=== PATIENT | female | born 1940 | race Caucasian/White ===

== ENCOUNTER → 2019-01-19 15:03 | Outpatient (CLI) | payer MEDICARE, OTHER, SELFPAY ==
--- NOTE | 2019-01-19 | DI.US.S_ITS ---
PROCEDURE: US CAROTID DOPPLER BI INDICATIONS: DIZZINESS AND GIDDINESS TECHNIQUE: Color and pulse Doppler interrogation was performed of both carotid systems, with image documentation and velocity measurements. COMPARISON: None. FINDINGS: Stenosis calculations are based on SRU (Society of Radiologists in Ultrasound) criteria. Right side: Brachial blood pressure: 106/68 mm Hg. Common carotid artery peak systolic velocity: 77 cm/sec. Internal carotid artery peak systolic velocity: 67 cm/sec. Internal carotid artery end diastolic velocity: 17 cm/sec. External carotid artery peak systolic velocity: 71 cm/sec. ICA/CCA peak systolic ratio: 0.9. [place]renas scale imaging description: Calcified plaque scattered at the bifurcation Percent internal carotid artery stenosis: Less than 50%. Vertebral artery: Flow direction is antegrade, however not well-visualized Left side: Brachial blood pressure: 101/62 mm Hg. Common carotid artery peak systolic velocity: 78 cm/sec. Internal carotid artery peak systolic velocity: 88 cm/sec. Internal carotid artery end diastolic velocity: 34 cm/sec. External carotid artery peak systolic velocity: 60 cm/sec. ICA/CCA peak systolic ratio: 1.14. [place]renas scale imaging description: Calcified plaque at the bifurcation Percent internal carotid artery stenosis: Less than 50%. Vertebral artery: Flow direction is antegrade. IMPRESSION: Bilateral less than 50% ICA stenoses. Dictated by: Huang Hurst M.D. on 01/19/2019 at 17:02 Approved by: Huang Hurst M.D. on 01/19/2019 at 17:04
--- NOTE | 2019-01-19 | DI.RAD.S_ITS ---
PROCEDURE: XR CERVICAL SPINE 2V OR 3V INDICATIONS: dizzy TECHNIQUE: 3 view(s) of the cervical spine were acquired. COMPARISON: None. FINDINGS: Bones: No fractures or dislocations to the C7 level. The lateral masses of C1 appear intact on the odontoid view. No suspicious bony lesions. Straightening of the normal lordotic curvature. Multilevel degenerative endplate sclerosis and spurring. Diffuse facet arthropathy. Grade 1 retrolisthesis of C5 on C6 severe narrowing of the C5-C6 disc space, and at C6-C7. Moderate narrowing of the C4-C5 disc space. Soft tissues: No prevertebral soft tissue swelling. IMPRESSION: Multilevel cervical spondylosis most pronounced at C5-C6 and C6-C7. Dictated by: Huang Hurst M.D. on 01/19/2019 at 16:20 Approved by: Huang Hurst M.D. on 01/19/2019 at 16:21
== END ==
PROVIDERS: PCP Family Medicine; Visit Provider Family Medicine
DX: R42 Dizziness and giddiness (principal); I65.23 Occlusion and stenosis of bilateral carotid arteries; M47.812 Spondylosis without myelopathy or radiculopathy, cervical region
CPT/HCPCS: 72040; 93880

== ENCOUNTER → 2019-02-13 15:06 | Outpatient (CLI) | payer MEDICARE, OTHER, SELFPAY ==
--- NOTE | 2019-02-13 | DI.CT.S_ITS ---
PROCEDURE: CT HEAD/BRAIN WO CON INDICATIONS: headache, dizziness and giddiness TECHNIQUE: Noncontrast 4.5 mm thick angled axial sections acquired from the foramen magnum to the vertex, with coronal and sagittal reformats. For radiation dose reduction, the following was used: automated exposure control, adjustment of mA and/or kV according to patient size. COMPARISON: None. FINDINGS: Image quality: Diagnostic. CSF spaces: Basal cisterns are patent. No extra-axial fluid collections. Ventricles are mildly prominent. Brain: No midline shift. No intracranial masses or hemorrhage. [place]-white matter interface is normal. Scattered areas of low-attenuation within the periventricular white matter of the supratentorial brain are more prominent within the right parietal region. Skull and face: Calvarium and visualized facial bones are intact, without suspicious lesions. Sinuses: Mucosal thickening is identified involving the right inferior maxillary sinus. Otherwise, the imaged paranasal sinuses and mastoid air cells are clear. IMPRESSION: 1. No acute intracranial hemorrhage. 2. Chronic small vessel ischemic changes and parenchymal volume loss. Dictated by: Musa Mir M.D. on 02/13/2019 at 14:56 Approved by: Musa Mir M.D. on 02/13/2019 at 14:57
--- NOTE | 2019-02-13 | DI.CT.S_ITS ---
PROCEDURE: CT SINUS SCREEN WO CON INDICATIONS: headache, dizziness, and giddiness TECHNIQUE: Noncontrast 3.0 mm axial images acquired from the frontal sinuses to the mid-sella, with coronal and sagittal reformats. For radiation dose reduction, the following was used: automated exposure control, adjustment of mA and/or kV according to patient size. COMPARISON: None. FINDINGS: Image quality: Diagnostic. Maxillary Sinuses: Mild mucosal thickening is present involving the bilateral inferior maxillary sinuses. No air-fluid levels are identified. No bony remodeling is appreciated. Ethmoid Air Cells: No bony remodeling or destruction. Sinuses are clear. Sphenoid Sinuses: No bony remodeling or destruction. There is no mucosal thickening involving the sphenoid air cells. Frontal Sinuses: No bony remodeling or destruction. Sinuses are clear. Ostiomeatal Complexes: Ostiomeatal complexes are at least partially opacified related to maxillary sinus the coastal thickening. No Lashawn cells. Miscellaneous: Visualized intra-orbital contents are normal. No molly bullosa or paradoxical turbinate curvature. No nasal septal deviation. IMPRESSION: Maxillary and sphenoid sinus disease. Dictated by: Musa Mir M.D. on 02/13/2019 at 14:57 Approved by: Musa Mir M.D. on 02/13/2019 at 15:01
== END ==
PROVIDERS: PCP Family Medicine; Visit Provider Family Medicine
DX: R51 Headache (principal); R42 Dizziness and giddiness; J32.8 Other chronic sinusitis
CPT/HCPCS: 70450; 70486

== ENCOUNTER 2019-08-02 18:23 | Emergency (ER) | payer MEDICARE, OTHER, SELFPAY ==
[2019-08-02 18:25] VITALS: BP 147/68; PULSE 113; RESP 19; TEMP 36.6; O2SAT 94
--- NOTE | 2019-08-02 18:31 | ED_ITS ---
HPI - General Adult General Chief complaint: Neuro Symptoms/Deficit Stated complaint: confusion, asthma issues Time Seen by Provider: 08/02/19 18:31 History of Present Illness HPI narrative: 78-year-old woman brought in by her daughter with complaints of increasing memory and cognitive deficits over the last 6 weeks as well as concerns over anemia and wheezing. No concerns for fever, she has had an increasing cough and wheeze 1st thing in the morning there is slightly more production to it. She does not describe chest pain and notes that the dyspnea is only with the severe coughing. No vomiting, diarrhea, abdominal pain, change to bowel or bladder habits. She does note she has been having increasing headaches over the last number of weeks. Daughter has not previously been going to her mother's medical appointments with her but does have an appointment scheduled with her primary care physician on Tuesday. There are multiple medications with varying doses pill bottles left around house so that she remembers to take them and varying doses of Ativan up to mg 3 times a day. Daughter is concerned regarding the headaches, the medication confusion and the progressive cognitive deficits. Related Data Previous Rx's Medication Instructions Recorded prednisone 10 mg PO DAILY #5 tab 08/02/19 Allergies Allergy/AdvReac Type Severity Reaction Status Date / Time adhesive tape Allergy Severe skin welt, Verified 08/02/19 18:58 bruising, and tears codeine [CODEINE] Allergy Severe Nausea Unverified 08/02/19 18:52 Sulfa (Sulfonamide Allergy Severe Nausea Unverified 08/02/19 18:52 Antibiotics) [SULFA (SULFONAMIDE ANTIBIOTICS)] amoxicillin [AMOXICILLIN] Allergy Intermediate GI UPSET Unverified 07/27/17 12:06 Review of Systems Review of Systems Narrative: All systems reviewed and are unremarkable except as noted in HPI and below Patient History Medical History Anemia (Inactive) Asthma (Acute) Headache (Acute) Hypertension (Acute) Hypothyroidism (acquired) (Acute) Memory dysfunction (Acute) Social History Smoking Status: Unknown if ever smoked Exam Narrative Exam Narrative: General: Healthy appearing, in no acute distress. Able to speak in full sentences. HEENT: Moist mucous membranes, normal sclera with reactive pupils, Neck: No JVD, supple Respiratory: Lungs moderate diffuse wheeze in all lung house no rales no rhonchi. Full and symmetrical air movement Cardiac: Tachycardic but regular with no murmurs no bruits Abdomen: Soft nontender good bowel tones, no flank pain Skin: Warm and dry, no rashes Neurologic: Grossly neurologically intact with no obvious asymmetries or abno rmalities Extremities: No trauma, well perfused Psych: Cooperative, wondering and tangential thought process no hallucinations Initial Vital Signs Initial Vital Signs: Vital Signs Temperature 97.9 F 08/02/19 18:25 Pulse Rate 113 H 08/02/19 18:25 Respiratory Rate 19 08/02/19 18:25 Blood Pressure 147/68 H 08/02/19 18:25 Pulse Oximetry 94 08/02/19 18:25 Course Orders Ordered: ED Orders 08/02/19 18:54 CT head/brain wo con Stat 08/02/19 19:15 Complete Blood Count AUTO DIFF Stat Comprehensive Metabolic Panel Stat Thyroid Stimulating Hormone Stat 08/02/19 20:15 Urinalysis and Microscopic Stat 08/02/19 20:20 XR chest 1V Stat Discontinued Medications Sodium Chloride (Normal Saline 0.9%) 1,000 mls @ 1,000 mls/hr IV BOLUS ONE Stop: 08/02/19 19:53 Last Admin: 08/02/19 20:00 Dose: 1,000 mls/hr Documented by: BASSAM Methylprednisolone (Solu-Medrol 125 Mg Vial) 125 mg IV NOW ONE Stop: 08/02/19 20:21 Last Admin: 08/02/19 20:26 Dose: 125 mg Documented by: BASSAM Vital Signs Vital signs: Vital Signs - 8 hr 08/02/19 18:25 08/02/19 19:31 08/02/19 20:06 Temperature 97.9 F Pulse Rate 113 H 103 H 104 H Respiratory Rate 19 39 H 20 Blood Pressure 147/68 H Blood Pressure [Right Arm] 119/66 Pulse Oximetry 94 94 94 Medical Decision Making Medical Records Medical records reviewed: Yes I reviewed the patient's medical records. Lab Data Lab results reviewed: Yes I reviewed the patient's lab results. Result diagrams: 08/02/19 19:15 08/02/19 19:15 Labs: Lab Results 08/02/19 08/02/19 08/02/19 Range/Units 19:15 19:15 19:15 WBC 7.0 (4.5-11.0) X10^3/uL RBC 5.60 H (4.0-5.2) X10^6/uL Hgb 12.7 (12.0-16.0) g/dL Hct 42.7 (36-46) % MCV 76.3 L (80-100) fL MCH 22.8 L (26-34) PG MCHC 29.8 L (30-36) % RDW 20.7 H (11.6-14.8) % Plt Count 396 (150-400) X10^3/uL Neut % (Auto) 58.6 (50-75) % Lymph % (Auto) 18.1 L (25-40) % [place] % (Auto) 12.1 (3-14) % Eos % (Auto) 10.2 H (2-4) % Baso % (Auto) 1.0 (0-2) % Neut # (Auto) 4100 (9702-7132) /uL Lymph # (Auto) 1300 (6058-3779) /uL [place] # (Auto) 800 (0-900) /uL Eos # (Auto) 700 H (0-450) /uL Baso # (Auto) 100 (0-100) /uL RBC Morphology See below Poikilocytosis 1+ H Anisocytosis 1+ H Microcytosis 1+ H Sodium 139 (137-145) mmol/L Potassium 3.7 (3.4-5.1) mmol/L Chloride 103 (98-107) mmol/L Carbon Dioxide 30 (22-32) mmol/L BUN 8 (7-17) mg/dL Creatinine 0.62 (0.52-1.04) mg/dL Estimated GFR > 60.0 (>60) mL/min BUN/Creatinine Ratio 12.9 (6-22) Glucose 104 (80-110) mg/dL Calcium 9.5 (8.4-10.2) mg/dL Total Bilirubin 0.3 (0.2-1.3) mg/dL AST 34 (14-36) IU/L ALT 17 (<35) IU/L Alkaline Phosphatase 69 (38-126) U/L Total Protein 7.8 (6.3-8.2) g/dL Albumin 4.4 (3.5-5.0) g/dL Globulin 3.4 (1.7-4.1) g/dL Albumin/Globulin Ratio 1.3 (1.0-2.8) TSH 0.16 L (0.47-4.68) uIU/mL Urine Color Urine Appearance Urine pH (4.5-8.0) Ur Specific [place] (1.000-1.035) Urine Protein (Negative) Urine Glucose (UA) (Negative) g/dL Urine Ketones (NEGATIVE) Urine Occult Blood (Negative) Urine Nitrate (Negative) Urine Bilirubin (NEGATIVE) Urine Urobilinogen (0.2) E.U./dL Ur Leukocyte Esterase (NEGATIVE) Urine RBC (0-5/HPF) Urine WBC (0-5/HPF) Ur Squamous Epith Cells (0-5/HPF) Urine Bacteria (None) Ur Culture Indicated? 08/02/19 Range/Units 20:15 WBC (4.5-11.0) X10^3/uL RBC (4.0-5.2) X10^6/uL Hgb (12.0-16.0) g/dL Hct (36-46) % MCV (80-100) fL MCH (26-34) PG MCHC (30-36) % RDW (11.6-14.8) % Plt Count (150-400) X10^3/uL Neut % (Auto) (50-75) % Lymph % (Auto) (25-40) % [place] % (Auto) (3-14) % Eos % (Auto) (2-4) % Baso % (Auto) (0-2) % Neut # (Auto) (0771-9833) /uL Lymph # (Auto) (7585-9146) /uL [place] # (Auto) (0-900) /uL Eos # (Auto) (0-450) /uL Baso # (Auto) (0-100) /uL RBC Morphology Poikilocytosis Anisocytosis Microcytosis Sodium (137-145) mmol/L Potassium (3.4-5.1) mmol/L Chloride (98-107) mmol/L Carbon Dioxide (22-32) mmol/L BUN (7-17) mg/dL Creatinine (0.52-1.04) mg/dL Estimated GFR (>60) mL/min BUN/Creatinine Ratio (6-22) Glucose (80-110) mg/dL Calcium (8.4-10.2) mg/dL Total Bilirubin (0.2-1.3) mg/dL AST (14-36) IU/L ALT (<35) IU/L Alkaline Phosphatase (38-126) U/L Total Protein (6.3-8.2) g/dL Albumin (3.5-5.0) g/dL Globulin (1.7-4.1) g/dL Albumin/Globulin Ratio (1.0-2.8) TSH (0.47-4.68) uIU/mL Urine Color Yellow Urine Appearance Clear Urine pH 7.0 (4.5-8.0) Ur Specific [place] <=1.005 (1.000-1.035) Urine Protein Negative (Negative) Urine Glucose (UA) Negative (Negative) g/dL Urine Ketones Negative (NEGATIVE) Urine Occult Blood Negative (Negative) Urine Nitrate Negative (Negative) Urine Bilirubin Negative (NEGATIVE) Urine Urobilinogen 0.2 (0.2) E.U./dL Ur Leukocyte Esterase Negative (NEGATIVE) Urine RBC None seen (0-5/HPF) Urine WBC 0-1/hpf (0-5/HPF) Ur Squamous Epith Cells 1-5 /hpf (0-5/HPF) Urine Bacteria Occasional (0-1) (None) Ur Culture Indicated? Cult not indicated Imaging Data Chest x-ray: Attestation: I personally reviewed and interpreted this imaging study as follows: My Impression: No acute infiltrates, no masses, normal cardiac silhouette CT scan - head: Radiologist's Impression: COMPARISON: [facility], CT, CT HEAD/BRAIN WO CON, 02/13/2019, 15:11. FINDINGS: Image quality: Excellent. CSF spaces: Basal cisterns are patent. No extra-axial fluid collections. The ventricles are symmetric in size and shape. Brain: No intracranial bleeds or masses. There is cerebral volume loss for age, with resultant ventricular and sulcal prominence. There are periventricular and deep white matter chronic small vessel ischemic changes. There is intracranial internal carotid artery atherosclerosis. Skull and face: Calvarium and visualized facial bones appear intact, without suspicious lesions. Sinuses: Visualized sinuses and mastoids are clear. IMPRESSION: No acute intracranial disease process. Dictated by: Maira Cesar MD, PhD on 08/02/2019 at 19:18 ECG Data Attestation: I personally reviewed and interpreted this ECG as follows: Interpretation: Sinus tach at a rate of 107 Normal axis, normal intervals No acute ischemic changes MDM Narrative Medical decision making narrative: 78-year-old woman with what appears to be progressive Alzheimer's type dementia getting to the point that her daughter is significantly sick concerned with care and needs to be more involved. Daughter is looking for answers and understands that fixes may not be immediately available. She is worried about headaches and is convinced that her mother has a brain tumor. CT scan is done today that is unremarkable showing no prior obvious infarcts and no masses or tumors. Regarding medications Katelyn is going to need prepackaged medications she has diltiazem in various doses that it looks like is supposed to be 30 mg 4 times a day. It is unclear if she is doing this and if it is 30 alternating with 60. She may benefit from a once a day medication. Her TSH is a bit low, she did not bring her thyroid medication and so I am unsure of the dose. May need to have it lowered slightly She is reassured regarding her hematocrit returning to normal Worsening asthma exacerbation, it is not clear that she is using her nebulizer as frequently as would benefit and she is definitely not using her Flovent She was given spacer with spacer teaching here in the emergency department and was neither able to hear the albuterol dispenser spraying into the spacer nor see it and needed significant coaching to be able to repeat and was not able to retain any information from prior coaching. Will place her on a brief steroid taper for an acute asthma exacerbation, no evidence of pneumonia at this time. Will recommend that she use her albuterol nebulizer 3 times a day and return to using her Flovent as prescribed Progressive cognitive dysfunction with likely diagnosis of Alzheimer's type dementia is reviewed with her daughter. This will need to be discussed and confirmed with her primary care physician Benzodiazepine use, will find that she is wheezing short of breath anxious so is taking Ativan anywhere from 0.25 mg to a whole mg and may be doing this much more frequently than she thinks. Will ask her daughter to leave her 0.25 mg of Ativan to use sometime during the day if she chooses to and encouraged her to use a nebulizer treatment when she is wheezing and short of breath even if she is anxious She is safe for home discharge at this time Discharge Plan Departure Patient Disposition: Home Clinical Impression: Hypothyroidism (acquired), Memory dysfunction, Anxiety, Benzodiazepine misuse Acute asthma exacerbation Qualifiers: Asthma severity: unspecified severity Asthma persistence: persistent Qualified Code(s): J45.901 - Unspecified asthma with (acute) exacerbation Hypertension Qualifiers: Hypertension type: essential hypertension Qualified Code(s): I10 - Essential (primary) hypertension Headache Qualifiers: Headache type: unspecified Headache chronicity pattern: episodic headache Intractability: not intractable Qualified Code(s): R51 - Headache Instructions: DI for Asthma -- Adult, DI for Alzheimer's Disease Activity Restrictions/Additional Instructions: Thank you for coming in today I have a number of suggestions and a number of things that you will need to review with Dr. Rincon on your appointment Tuesday 1. Your anemia has resolved and your hemoglobin and hematocrit is 12.7 and 42.7. You can stop your iron supplementation 2. Your brain CT scan does not show any dramatic abnormalities, tumors, or masses 3. Your thyroid level is off just a small amount and you may benefit with a decrease in your thyroid medication. Please discuss this with Dr. Rincon 4. You are having an acute asthma exacerbation without any evidence of pneumonia. -I am going to give you 5 additional days of steroid, 10 mg of prednisone a day. You got a dose of steroid in the emergency department. -you need to make sure that you are using your albuterol nebulizer up to 3 times a day -you need to use your Flovent daily -there is no evidence of pneumonia and you do not need any antibiotics at this time 5. Your medication administration is a significant concern. You need to get a medicine box and use it. It is not okay to leave multiple medications in various places around the house. Accidentally forgetting medications or taking too much medication is a primary reason memory issues and medical complications. 6. Please discuss your diltiazem dose with Dr. Rincon. You may benefit from a once or at most twice a day medication. The 4 times a day dosing currently prescribed is not meeting your needs 7. Your anxiety and your Ativan use is concerning. Ativan can be significantly harmful as it is metabolized differently as you get older. When your feeling anxious because you are wheezing, your 1st step needs to be an albuterol nebulizer treatment. Using Ativan to treat anxiety associated with your wheezing is completely inappropriate and will lead to multiple problems and complications. I would recommend that you allow yourself 0.25 mg of Ativan once during the day as a maximum dose, taken only if you are anxious 8. I am concerned about your memory. You are showing signs consistent with developing an Alzheimer's type dementia. This can be very frightening. I have given you additional printed information on Alzheimer's disease. Please discuss your concerns regarding memory including the appropriateness of this diagnosis with Dr. Rincon Prescriptions: New prednisone 10 mg tablet 10 mg PO DAILY Qty: 5 RF: 0 Referrals: Will Rincon MD [Primary Care Provider] -
--- NOTE | 2019-08-02 18:50 | PC.NURSE ---
Patient and daughter report increasing weakness, increasing confusion, and asthma. Confusion and weakness have been gradually getting worse over 6 weeks but has been noticed for one year. Pt is alert and oriented x4 but per daughter report, patient is more forgetful and it seems to come and go. Neuro exam intact. Denies problems with urination. pt does have audible wheezing.
--- NOTE | 2019-08-02 18:54 | DI.CT.S_ITS ---
PROCEDURE: CT HEAD/BRAIN WO CON INDICATIONS: headaches and increasing confusion TECHNIQUE: Noncontrast 4.5 mm thick angled axial sections acquired from the foramen magnum to the vertex, with coronal and sagittal reformats. For radiation dose reduction, the following was used: automated exposure control, adjustment of mA and/or kV according to patient size. COMPARISON: [facility], CT, CT HEAD/BRAIN WO CON, 02/13/2019, 15:11. FINDINGS: Image quality: Excellent. CSF spaces: Basal cisterns are patent. No extra-axial fluid collections. The ventricles are symmetric in size and shape. Brain: No intracranial bleeds or masses. There is cerebral volume loss for age, with resultant ventricular and sulcal prominence. There are periventricular and deep white matter chronic small vessel ischemic changes. There is intracranial internal carotid artery atherosclerosis. Skull and face: Calvarium and visualized facial bones appear intact, without suspicious lesions. Sinuses: Visualized sinuses and mastoids are clear. IMPRESSION: No acute intracranial disease process. Dictated by: Maira Cesar MD, PhD on 08/02/2019 at 19:18 Approved by: Maira Cesar MD, PhD on 08/02/2019 at 19:20
[2019-08-02 19:25] LABS: Add Manual Diff / Slide Review NO; Basophils Absolute Auto 100 /uL (0-100); Eosinophils Absolute Auto 700 /uL (0-450); Eosinophils Percent Auto 10.2 % (2-4); Hematocrit 42.7 % (36-46); Hemoglobin 12.7 g/dL (12.0-16.0); Lymphocytes Absolute Auto 1300 /uL (1100-4500); Lymphocytes Percent Auto 18.1 % (25-40); Mean Corpuscular HGB Conc 29.8 % (30-36); Mean Corpuscular Hemoglobin 22.8 PG (26-34); Mean Corpuscular Volume 76.3 fL (80-100); Monocytes Absolute Auto 800 /uL (0-900); Monocytes Percent Auto 12.1 % (3-14); Neutrophils Absolute Auto 4100 /uL (1500-7000); Neutrophils Percent Auto 58.6 % (50-75); Platelet Count 396 X10^3/uL (150-400); Red Cell Distribution Width 20.7 % (11.6-14.8)
[2019-08-02 19:31] VITALS: BP 119/66; PULSE 103; RESP 39; O2SAT 94
[2019-08-02 19:40] LABS: Alanine Aminotransferase 17 IU/L (<35); Albumin 4.4 g/dL (3.5-5.0); Albumin Globulin Ratio 1.3 (1.0-2.8); Alkaline Phosphatase 69 U/L (38-126); Aspartate Aminotransferase 34 IU/L (14-36); BUN Creatinine Ratio 12.9 (6-22); Bilirubin Total 0.3 mg/dL (0.2-1.3); Blood Urea Nitrogen 8 mg/dL (7-17); Calcium 9.5 mg/dL (8.4-10.2); Carbon Dioxide 30 mmol/L (22-32); Chloride 103 mmol/L (98-107); Estimated Glomerular Filt Rate > 60.0 mL/min (>60); Globulin 3.4 g/dL (1.7-4.1); Glucose 104 mg/dL (80-110); HEMOLYSIS < 15 (0-50); Potassium 3.7 mmol/L (3.4-5.1); Sodium 139 mmol/L (137-145); Total Protein 7.8 g/dL (6.3-8.2)
[2019-08-02 19:45] LABS: Anisocytosis 1+; Microcytosis 1+; Poikilocytosis 1+
[2019-08-02] MEDS: SODIUM CHLORIDE 0.9% 1,000 ML 1000 ML IV (20:00)
[2019-08-02 20:06] VITALS: PULSE 104; RESP 20; O2SAT 94
[2019-08-02 20:11] LABS: Thyroid Stimulating Hormone 0.16 uIU/mL (0.47-4.68)
--- NOTE | 2019-08-02 20:20 | DI.RAD.S_ITS ---
PROCEDURE: XR CHEST 1V INDICATIONS: wheeze and productive cough TECHNIQUE: One view of the chest was acquired. COMPARISON: None. FINDINGS: Surgical changes and devices: None. Lungs and pleura: Lungs are clear. No pleural effusions or pneumothorax. Mediastinum: Mediastinal contours appear normal. Heart size is normal. Bones and chest wall: No suspicious bony lesions. Overlying soft tissues appear unremarkable. IMPRESSION: No acute cardiopulmonary disease process. Dictated by: Maira Cesar MD, PhD on 08/02/2019 at 20:46 Approved by: Maira Cesar MD, PhD on 08/02/2019 at 20:46
[2019-08-02 20:23] LABS: RBC Urine None Seen (0-5/HPF)
[2019-08-02 20:25] LABS: Appearance Urine UA CLEAR; Bilirubin Urine UA NEGATIVE (NEGATIVE); Color Urine UA YELLOW; Glucose Urine UA NEGATIVE (Negative); Ketones Urine UA NEGATIVE (NEGATIVE); Leukocyte Esterase Urine UA NEGATIVE (NEGATIVE); Nitrite Urine UA NEGATIVE (Negative); Occult Blood Urine UA NEGATIVE (Negative); Protein Urine UA NEGATIVE (Negative); Specific Gravity Urine UA <=1.005 (1.000-1.035); Urobilinogen Urine UA 0.2 E.U./dL (0.2)
[2019-08-02] MEDS: methylPREDNISolone 125 MG/2 ML VIAL IV (20:26)
[2019-08-02 20:31] LABS: Bacteria Urine Occasional (0-1); Culture Indicated Urine Cult Not Indicated; Squamous Epithelial Cell Urine 1-5 /HPF (0-5/HPF); WBC Urine 0-1/HPF (0-5/HPF)
[2019-08-02 21:48] VITALS: BP 119/66; PULSE 105; RESP 40; O2SAT 93
== END 2019-08-02 21:54 | disposition home or self-care (01) ==
PROVIDERS: Emergency Provider Emergency Medicine; PCP Family Medicine
DX: R41.3 Other amnesia (principal); F41.9 Anxiety disorder, unspecified; J45.901 Unspecified asthma with (acute) exacerbation; F13.90 Sedative, hypnotic, or anxiolytic use, unspecified, uncomplicated; E03.8 Other specified hypothyroidism; I10 Essential (primary) hypertension; R51 Headache
CPT/HCPCS: 36415; 70450; 71045; 80053; 81001; 84443; 85025; 93005; 94640; 96374; 99284; J2930

== ENCOUNTER 2019-09-09 20:36 | Emergency (ER) | payer MEDICARE, OTHER, SELFPAY ==
--- NOTE | 2019-09-09 20:22 | ED_ITS ---
HPI - Asthma General Chief Complaint: Shortness of Breath/Dyspnea Stated Complaint: Asthma Time Seen by Provider: 09/09/19 20:50 History of Present Illness HPI Narrative: 78-year-old woman with a history of COPD and asthma with progressive memory dysfunction and agitation presents with increased dyspnea and significant anxiety. She states that the day started with her usual nebulizer i n the morning usual amount of coughing to clear her lungs repeat nebulizer approximately 10 in the morning and by late this evening she was having a slight increase in her wheezing and overall increase in anxiety. She then had an episode of dramatic anxiety with acute onset where she felt that she was going to , that she could not catch her breath, palpitations and significant we increased agitation. Related Data Previous Rx's Medication Instructions Recorded prednisone 10 mg PO DAILY #5 tab 08/02/19 Allergies Allergy/AdvReac Type Severity Reaction Status Date / Time adhesive tape Allergy Severe skin welt, Verified 08/02/19 18:58 bruising, and tears codeine [CODEINE] Allergy Severe Nausea Unverified 08/02/19 18:52 Sulfa (Sulfonamide Allergy Severe Nausea Unverified 08/02/19 18:52 Antibiotics) [SULFA (SULFONAMIDE ANTIBIOTICS)] amoxicillin [AMOXICILLIN] Allergy Intermediate GI UPSET Unverified 07/27/17 12:06 Review of Systems Review of Systems Narrative: Pertinent positive and negative findings as per HPI Remainder of review of systems is otherwise unremarkable for Constitutional: Fevers, chills, weakness ENT: No sore throat, neck pain, ear pain GI: Nausea, vomiting, diarrhea, change in bowel habits, black or bloody stools : Dysuria, hematuria, flank pain MS: Muscle weakness, numbness, joint swelling or warmth Skin: Rashes, nonhealing lesions Neuro: Syncope, dizziness, tingling Patient History Medical History Anemia (Inactive) Asthma (Acute) Headache (Acute) Hypertension (Acute) Hypothyroidism (acquired) (Acute) Memory dysfunction (Acute) Social History Smoking Status: Unknown if ever smoked Smoking Status: Unknown if ever smoked alcohol intake frequency: holidays/special occasions only Substance Use Type: does not use Exam Narrative Exam Narrative: General: Healthy appearing, in mild distress distress due to anxiety. Able to speak in full sentences Well-nourished well-developed HEENT: Moist mucous membranes, normal sclera with reactive pupils, Neck: No JVD, supple Respiratory: Lungs with moderate scattered wheezing in all lung house no rales no rhonchi. Full and symmetrical air movement Cardiac: Regular rate and rhythm no murmurs no bruits Abdomen: Soft nontender good bowel tones, no flank pain Skin: Warm and dry, no rashes Neurologic: Grossly neurologically intact with no obvious asymmetries or abnormalities Extremities: No trauma, well perfused Psych: Cooperative, poor insight and mild anxiety and agitation Initial Vital Signs Initial Vital Signs: Vital Signs Temperature 98.1 F 09/09/19 20:23 Pulse Rate 114 H 09/09/19 20:23 Respiratory Rate 35 H 09/09/19 20:23 Blood Pressure 149/67 H 09/09/19 20:23 Pulse Oximetry 97 09/09/19 20:23 Course Orders Ordered: ED Orders 09/09/19 20:30 Complete Blood Count AUTO DIFF Stat Comprehensive Metabolic Panel Stat D Dimer Stat NT-proBNP (BNP-Adult 18+) Stat Procalcitonin Stat Troponin I Stat 09/09/19 20:32 XR chest 1V Stat 09/09/19 20:33 Urinalysis and Microscopic Stat EKG-12 Lead Stat Discontinued Medications Diazepam (Valium) 5 mg PO NOW ONE Stop: 09/09/19 20:32 Last Admin: 09/09/19 20:49 Dose: 5 mg Documented by: JOSH Sodium Chloride (Normal Saline 0.9%) 1,000 mls @ 1,000 mls/hr IV BOLUS ONE Stop: 09/09/19 21:30 Last Admin: 09/09/19 20:50 Dose: 1,000 mls/hr Documented by: JOSH Vital Signs Vital signs: Vital Signs - 8 hr 09/09/19 20:23 09/09/19 20:44 Temperature 98.1 F Pulse Rate 114 H 97 H Respiratory Rate 35 H 34 H Blood Pressure 149/67 H Blood Pressure [Left Arm] 125/59 L Pulse Oximetry 97 97 MDM - Asthma Medical Records Attestation: I reviewed the patient's medical records. Lab Data Attestation: I reviewed the patient's lab results. Lab results narrative: D-dimer at 2:34 a.m. in a 78-year-old woman aged just to within normal range and does not suggest high risk for pulmonary embolism Result diagrams: 09/09/19 20:30 09/09/19 20:30 Labs: Lab Results 09/09/19 09/09/19 09/09/19 Range/Units 20:30 20:30 20:30 WBC 7.6 (4.5-11.0) X10^3/uL RBC 5.77 H (4.0-5.2) X10^6/uL Hgb 13.9 (12.0-16.0) g/dL Hct 44.5 (36-46) % MCV 77.0 L (80-100) fL MCH 24.1 L (26-34) PG MCHC 31.3 (30-36) % RDW 17.9 H (11.6-14.8) % Plt Count 373 (150-400) X10^3/uL Neut % (Auto) 62.2 (50-75) % Lymph % (Auto) 18.4 L (25-40) % [place] % (Auto) 8.3 (3-14) % Eos % (Auto) 10.3 H (2-4) % Baso % (Auto) 0.8 (0-2) % Neut # (Auto) 4700 (3391-3848) /uL Lymph # (Auto) 1400 (2715-6183) /uL [place] # (Auto) 600 (0-900) /uL Eos # (Auto) 800 H (0-450) /uL Baso # (Auto) 100 (0-100) /uL D-Dimer 234 H (<230) ng/mL Sodium 139 (137-145) mmol/L Potassium 4.2 (3.4-5.1) mmol/L Chloride 104 (98-107) mmol/L Carbon Dioxide 27 (22-32) mmol/L BUN 12 (7-17) mg/dL Creatinine 0.57 (0.52-1.04) mg/dL Estimated GFR > 60.0 (>60) mL/min BUN/Creatinine Ratio 21.1 (6-22) Glucose 110 (80-110) mg/dL Calcium 9.5 (8.4-10.2) mg/dL Total Bilirubin 0.3 (0.2-1.3) mg/dL AST 31 (14-36) IU/L ALT 16 (<35) IU/L Alkaline Phosphatase 60 (38-126) U/L Troponin I < 0.012 (0.01-0.034) ng/mL NT-Pro-B Natriuret Pep 104 (<450) pg/mL Total Protein 7.6 (6.3-8.2) g/dL Albumin 4.3 (3.5-5.0) g/dL Globulin 3.3 (1.7-4.1) g/dL Albumin/Globulin Ratio 1.3 (1.0-2.8) Procalcitonin (<0.5) ng/mL Urine Color Urine Appearance Urine pH (4.5-8.0) Ur Specific [place] (1.000-1.035) Urine Protein (Negative) Urine Glucose (UA) (Negative) g/dL Urine Ketones (NEGATIVE) Urine Occult Blood (Negative) Urine Nitrate (Negative) Urine Bilirubin (NEGATIVE) Urine Urobilinogen (0.2) E.U./dL Ur Leukocyte Esterase (NEGATIVE) Urine RBC (0-5/HPF) Urine WBC (0-5/HPF) Ur Squamous Epith Cells (0-5/HPF) Urine Bacteria (None) Ur Culture Indicated? 09/09/19 09/09/19 Range/Units 20:30 21:50 WBC (4.5-11.0) X10^3/uL RBC (4.0-5.2) X10^6/uL Hgb (12.0-16.0) g/dL Hct (36-46) % MCV (80-100) fL MCH (26-34) PG MCHC (30-36) % RDW (11.6-14.8) % Plt Count (150-400) X10^3/uL Neut % (Auto) (50-75) % Lymph % (Auto) (25-40) % [place] % (Auto) (3-14) % Eos % (Auto) (2-4) % Baso % (Auto) (0-2) % Neut # (Auto) (3924-9105) /uL Lymph # (Auto) (9007-3804) /uL [place] # (Auto) (0-900) /uL Eos # (Auto) (0-450) /uL Baso # (Auto) (0-100) /uL D-Dimer (<230) ng/mL Sodium (137-145) mmol/L Potassium (3.4-5.1) mmol/L Chloride (98-107) mmol/L Carbon Dioxide (22-32) mmol/L BUN (7-17) mg/dL Creatinine (0.52-1.04) mg/dL Estimated GFR (>60) mL/min BUN/Creatinine Ratio (6-22) Glucose (80-110) mg/dL Calcium (8.4-10.2) mg/dL Total Bilirubin (0.2-1.3) mg/dL AST (14-36) IU/L ALT (<35) IU/L Alkaline Phosphatase (38-126) U/L Troponin I (0.01-0.034) ng/mL NT-Pro-B Natriuret Pep (<450) pg/mL Total Protein (6.3-8.2) g/dL Albumin (3.5-5.0) g/dL Globulin (1.7-4.1) g/dL Albumin/Globulin Ratio (1.0-2.8) Procalcitonin < 0.05 (<0.5) ng/mL Urine Color Yellow Urine Appearance Clear Urine pH 6.5 (4.5-8.0) Ur Specific [place] <=1.005 (1.000-1.035) Urine Protein Negative (Negative) Urine Glucose (UA) Negative (Negative) g/dL Urine Ketones Negative (NEGATIVE) Urine Occult Blood Negative (Negative) Urine Nitrate Negative (Negative) Urine Bilirubin Negative (NEGATIVE) Urine Urobilinogen 0.2 (0.2) E.U./dL Ur Leukocyte Esterase Negative (NEGATIVE) Urine RBC None seen (0-5/HPF) Urine WBC None seen (0-5/HPF) Ur Squamous Epith Cells 0-1 /hpf (0-5/HPF) Urine Bacteria None seen (None) Ur Culture Indicated? Cult not indicated Imaging Data Chest x-ray: Radiologist's Impression: IMPRESSION: No acute disease Large hiatal hernia Dictated by: Huang Hurst M.D. on 09/09/2019 at 21:17 ECG Data Attestation: I personally reviewed and interpreted this ECG as follows: Interpretation: Sinus rhythm at 101 Normal intervals, normal axis No acute ischemic changes MDM Narrative Medical decision making narrative: Patient is doing significantly better. Her daughter is now at bedside. We discussed the seeming panic attack she had today. We talked about using Ativan/lorazepam to help avoid getting worse. Patient also has an appointment with her new primary care physician Dr. Evans on Tuesday and will ask about referral for counseling. Workup today indicates no evidence of PE, sepsis, severe COPD or asthma exacerbation, pneumonia, acute coronary syndrome or other life-threatening events. Patient is safe for home discharge Discharge Plan Departure Patient Disposition: Home Clinical Impression: Panic attack Asthma Qualifiers: Asthma severity: moderate Asthma persistence: persistent Asthma complication type: unspecified Qualified Code(s): J45.40 - Moderate persistent asthma, uncomplicated Instructions: DI for Panic Disorder Activity Restrictions/Additional Instructions: Thank you for coming in today Your medical workup did not reveal any life threatening diagnoses today. Specifically there is no evidence of severe infection, pneumonia, collapsed lungs, blood clots in your lungs, heart attack or heart attack like syndrome, or severe exacerbation of your asthma. I believe you did actually experience a panic attack. With your daughter living so close the 2 of you have a nicely workout system of support and back up. I would encourage you to use that support. You have an appointment with your new primary care physician, Dr. Evans, on Tuesday. I would encourage you to talk to him about a referral to a counselor. If you have new or worsening symptoms please feel free to return to the emergency department Prescriptions: No Action prednisone 10 mg tablet 10 mg PO DAILY Qty: 5 RF: 0 Referrals: Robert Evans MD [Non-Staff] - Will Rincon MD [Primary Care Provider] - Jeison Uriostegui ARNP [Advanced Process Stripper] -
[2019-09-09 20:23] VITALS: BP 149/67; PULSE 114; RESP 35; TEMP 36.7; O2SAT 97; BMI 25.5
--- NOTE | 2019-09-09 20:32 | DI.RAD.S_ITS ---
PROCEDURE: XR CHEST 1V INDICATIONS: wheeze TECHNIQUE: One view of the chest was acquired. COMPARISON: [facility], CR, XR CHEST 1V, 08/02/2019, 20:31. FINDINGS: Surgical changes and devices: None. Lungs and pleura: Lungs are clear. No pleural effusions or pneumothorax. Mediastinum: Mediastinal contours appear normal. Heart size is normal. Large hiatal hernia Bones and chest wall: No suspicious bony lesions. Overlying soft tissues appear unremarkable. IMPRESSION: No acute disease Large hiatal hernia Dictated by: Huang Hurst M.D. on 09/09/2019 at 21:17 Approved by: Huang Hurst M.D. on 09/09/2019 at 21:18
--- NOTE | 2019-09-09 20:42 | PC.NURSE ---
Reports progressive anxiety through out the day. Took 1/2 tab or oral ativan around 1600 with no relief and took other half. reports panic and increase SOB with no relief with inhaler or nebulizer. EMS reports patient was pacing frantically around the house upon arrival with a RA sat of 91%
[2019-09-09 20:44] VITALS: BP 125/59; PULSE 97; RESP 34; O2SAT 97
[2019-09-09 20:49] LABS: Add Manual Diff / Slide Review NO; Basophils Absolute Auto 100 /uL (0-100); Basophils Percent Auto 0.8 % (0-2); Eosinophils Absolute Auto 800 /uL (0-450); Eosinophils Percent Auto 10.3 % (2-4); Hematocrit 44.5 % (36-46); Hemoglobin 13.9 g/dL (12.0-16.0); Lymphocytes Absolute Auto 1400 /uL (1100-4500); Lymphocytes Percent Auto 18.4 % (25-40); Mean Corpuscular HGB Conc 31.3 % (30-36); Mean Corpuscular Hemoglobin 24.1 PG (26-34); Monocytes Absolute Auto 600 /uL (0-900); Monocytes Percent Auto 8.3 % (3-14); Neutrophils Absolute Auto 4700 /uL (1500-7000); Neutrophils Percent Auto 62.2 % (50-75); Platelet Count 373 X10^3/uL (150-400); Red Blood Cell Count 5.77 X10^6/uL (4.0-5.2); Red Cell Distribution Width 17.9 % (11.6-14.8); White Blood Cell Count 7.6 X10^3/uL (4.5-11.0)
[2019-09-09] MEDS: diazePAM 5 MG TABLET PO (20:49)
[2019-09-09] MEDS: SODIUM CHLORIDE 0.9% 1,000 ML 1000 ML IV (20:50)
[2019-09-09 20:54] LABS: D Dimer 234 ng/mL (<230)
[2019-09-09 20:56] LABS: Alanine Aminotransferase 16 IU/L (<35); Albumin 4.3 g/dL (3.5-5.0); Albumin Globulin Ratio 1.3 (1.0-2.8); Alkaline Phosphatase 60 U/L (38-126); Aspartate Aminotransferase 31 IU/L (14-36); BUN Creatinine Ratio 21.1 (6-22); Bilirubin Total 0.3 mg/dL (0.2-1.3); Blood Urea Nitrogen 12 mg/dL (7-17); Calcium 9.5 mg/dL (8.4-10.2); Carbon Dioxide 27 mmol/L (22-32); Chloride 104 mmol/L (98-107); Estimated Glomerular Filt Rate > 60.0 mL/min (>60); Globulin 3.3 g/dL (1.7-4.1); Glucose 110 mg/dL (80-110); HEMOLYSIS 21 (0-50); Potassium 4.2 mmol/L (3.4-5.1); Sodium 139 mmol/L (137-145); Total Protein 7.6 g/dL (6.3-8.2)
[2019-09-09 21:07] LABS: NT-proBNP (BNP-Adult 18+) 104 pg/mL (<450); Troponin I < 0.012 ng/mL (0.01-0.034)
[2019-09-09 21:13] LABS: Procalcitonin < 0.05 ng/mL (<0.5)
[2019-09-09 22:17] LABS: Bacteria Urine None Seen; RBC Urine None Seen (0-5/HPF); WBC Urine None Seen (0-5/HPF)
[2019-09-09 22:19] LABS: Appearance Urine UA CLEAR; Bilirubin Urine UA NEGATIVE (NEGATIVE); Color Urine UA YELLOW; Glucose Urine UA NEGATIVE (Negative); Ketones Urine UA NEGATIVE (NEGATIVE); Leukocyte Esterase Urine UA NEGATIVE (NEGATIVE); Nitrite Urine UA NEGATIVE (Negative); Occult Blood Urine UA NEGATIVE (Negative); Protein Urine UA NEGATIVE (Negative); Specific Gravity Urine UA <=1.005 (1.000-1.035); Urobilinogen Urine UA 0.2 E.U./dL (0.2)
[2019-09-09 22:21] LABS: pH Urine UA 6.5 (4.5-8.0)
[2019-09-09 22:26] LABS: Culture Indicated Urine Cult Not Indicated; Squamous Epithelial Cell Urine 0-1 /HPF (0-5/HPF)
[2019-09-09 22:51] VITALS: BP 136/64; PULSE 91; RESP 24; TEMP 36.8; O2SAT 96
== END 2019-09-09 22:51 | disposition home or self-care (01) ==
PROVIDERS: Emergency Provider Emergency Medicine; PCP Family Medicine
DX: F41.0 Panic disorder [episodic paroxysmal anxiety] (principal); J45.40 Moderate persistent asthma, uncomplicated
CPT/HCPCS: 36415; 71045; 80053; 81001; 83880; 84145; 84484; 85025; 85379; 93005; 93010; 96360; 96361; 99284

== ENCOUNTER 2019-09-16 18:41 | Inpatient (IN) | payer MEDICARE, OTHER, SELFPAY ==
[2019-09-16] VITALS (11 sets, daily range): BP systolic 98–143; BP diastolic 55–94; PULSE 115–145; RESP 20–38; TEMP 36.7–36.9; O2SAT 90–100
--- NOTE | 2019-09-16 18:42 | ED_ITS ---
HPI - General Adult General Chief complaint: Shortness of Breath/Dyspnea Stated complaint: shortness of breath, hx of copd Time Seen by Provider: 09/16/19 18:42 Source: patient Mode of arrival: EMS Limitations: no limitations History of Present Illness HPI narrative: 78-year-old female. History of asthma and COPD. Does not use home oxygen however does have inhalers with spacers at home. Here for evaluation of shortness of breath. Patient arrived by EMS. She received 1 DuoNeb EN route which she states improved her symptoms somewhat. Has not had a fever productive cough. She was here in the emergency department approximately 1 week ago and diagnosed with a panic attack. Patient states that she is having more frequent panic attacks. She woke up this morning having a panic attack but took her home benzodiazepines which she states makes her very drowsy. This is a new medication given her by primary doctor. As the morning went on she had a fairly sudden onset of shortness of breath. There were some neighbors mowing the lawn at the time. She states she tried her home treatments and did not help so she called 911. Related Data Home Medications Medication Instructions Recorded Confirmed albuterol sulfate Q4HR 09/17/19 alprazolam mg PO TID PRN 09/17/19 Allergies Allergy/AdvReac Type Severity Reaction Status Date / Time adhesive tape Allergy Severe skin welt, Verified 08/02/19 18:58 bruising, and tears codeine [CODEINE] Allergy Severe Nausea Unverified 08/02/19 18:52 Sulfa (Sulfonamide Allergy Severe Nausea Unverified 08/02/19 18:52 Antibiotics) [SULFA (SULFONAMIDE ANTIBIOTICS)] amoxicillin [AMOXICILLIN] Allergy Intermediate GI UPSET Unverified 07/27/17 12:06 Review of Systems Constitutional Constitutional: Denies fever(s) and Denies headache(s) ENT Ears, Nose, Mouth, and Throat: Denies headache(s) Cardiovascular Cardiovascular: Denies chest pain, Denies rapid heart rate, Denies edema, Reports dyspnea and Reports dyspnea on exertion Respiratory Respiratory: Reports cough, Reports dyspnea, Reports dyspnea on exertion and Reports wheezing Gastrointestinal Gastrointestinal: Denies abdominal pain, Denies nausea and Denies vomiting Musculoskeletal Musculoskeletal: Denies myalgias and Denies arthralgias Integumentary/Breasts Skin/Breast: Denies lesions and Denies rash Neurologic Neurologic: Denies behavioral changes and Denies headache(s) Psychiatric Psychiatric: Reports anxiety, Denies behavioral changes and Reports panic attacks Hematologic/Lymphatic Hematologic/Lymphatic: Denies easy bleeding and Denies easy bruising Allergic/Immunologic Allergic/Immunologic: Reports wheezing Patient History Medical History Anemia (Inactive) Anxiety (Acute) Asthma (Acute) COPD (chronic obstructive pulmonary disease) (Acute) Headache (Acute) Hypertension (Acute) Hypothyroidism (acquired) (Acute) Memory dysfunction (Acute) Surgical History (Updated 09/16/19 @ 21:59 by Renu Liu MD) H/O hysterectomy with oophorectomy (Acute) H/O thyroidectomy (Acute) Social History household members: none Smoking Status: Unknown if ever smoked Exam Initial Vital Signs Initial Vital Signs: Vital Signs Pulse Rate 118 H 09/16/19 18:50 Respiratory Rate 28 H 09/16/19 18:50 Pulse Oximetry 100 09/16/19 18:50 Const General: cooperative and frail appearing Limitations: mental status not altered HENMT Head: normal to inspection and normocephalic Resp Effort & Inspection: audible wheezes, cough, labored and tachypneic Auscultation: rhonchi and wheezes Cardio Rate: tachycardic Rhythm: regular rhythm GI Inspection: non-distended Palpation: soft Skin Lesions: no lesions Rashes: no rashes Neuro General: alert, awake and oriented x3 Cognition: normal cognition Speech: speech normal Extrem General: normal to inspection and capillary refill normal Psych Appearance: grossly normal and well kempt Scores GCS Bony coma scale eye opening: Spontaneous Boody coma scale verbal response: Orientated Boody coma scale motor response: Obey commands Boody coma scale total score: 15 Course Orders Ordered: ED Orders 09/16/19 18:43 XR chest 1V Stat 09/16/19 18:44 RT Consult Eval and Treat Now 09/16/19 18:52 EKG-12 Lead Stat 09/16/19 20:20 Complete Blood Count AUTO DIFF Stat Comprehensive Metabolic Panel Stat Partial Thromboplastin Time Stat Procalcitonin Stat Prothrombin Time INR Stat Troponin I Stat 09/16/19 21:24 Education, smoking cessation ONGOING 09/16/19 21:27 Consult to Physical Therapy Evaluate & Treat 09/17/19 06:00 Basic Metabolic Panel Routine Complete Blood Count AUTO DIFF Routine Albuterol/Ipratropium (Duoneb) 3 ml INH RTQ4HR PRN PRN Reason: Shortness Of Breath Last Admin: 09/16/19 23:02 Dose: 3 ml Documented by: ANTOINE Enoxaparin Sodium (Lovenox) 40 mg SUBCUT DAILY DARCY Sodium Chloride (Normal Saline 0.9%) 1,000 mls @ 75 mls/hr IV CONT DARCY Last Admin: 09/17/19 01:09 Dose: 75 mls/hr Documented by: LACEY Methylprednisolone (Solu-Medrol 125 Mg Vial) 60 mg IV Q8HR DARCY Last Admin: 09/17/19 01:07 Dose: 60 mg Documented by: LACEY Naloxone HCl (Narcan) 0.2 mg IV Q2MIN PRN PRN Reason: Opiate Reversal Discontinued Medications Albuterol (Ventolin) 20 mg INH NOW ONE Stop: 09/16/19 19:25 Last Admin: 09/16/19 19:34 Dose: Not Given Documented by: ANTOINE Albuterol (Ventolin) 15 mg INH NOW ONE Stop: 09/16/19 19:28 Last Admin: 09/16/19 19:30 Dose: 15 mg Documented by: ANTOINE Albuterol/Ipratropium (Duoneb) 3 ml INH NOW ONE Stop: 09/16/19 18:43 Last Admin: 09/16/19 18:46 Dose: 3 ml Documented by: ANTOINE Albuterol/Ipratropium (Duoneb) 3 ml INH NOW ONE Stop: 09/16/19 18:43 Last Admin: 09/16/19 18:50 Dose: 3 ml Documented by: ANTOINE Methylprednisolone (Solu-Medrol 125 Mg Vial) 125 mg IV NOW ONE Stop: 09/16/19 18:44 Last Admin: 09/16/19 19:15 Dose: 125 mg Documented by: PATRIZIA Vital Signs Vital signs: Vital Signs - 8 hr 09/16/19 18:50 09/16/19 19:37 09/16/19 20:10 Pulse Rate 118 H 120 H 125 H Respiratory Rate 28 H 32 H 36 H Blood Pressure [Right Arm] 115/56 L Pulse Oximetry 100 98 96 09/16/19 20:40 09/16/19 20:57 09/16/19 21:00 Pulse Rate 129 H 123 H Respiratory Rate 26 H 32 H Blood Pressure [Right Arm] 104/57 L 98/59 L Pulse Oximetry 90 L 90 L 91 Medical Decision Making Medical Records Medical records reviewed: Yes I reviewed the patient's medical records. Lab Data Lab results reviewed: Yes I reviewed the patient's lab results. Result diagrams: 09/16/19 20:20 09/16/19 20:20 Labs: Lab Results 09/16/19 09/16/19 09/16/19 Range/Units 20:20 20:20 20:20 WBC 7.4 (4.5-11.0) X10^3/uL RBC 5.22 H (4.0-5.2) X10^6/uL Hgb 12.4 (12.0-16.0) g/dL Hct 40.7 (36-46) % MCV 78.0 L (80-100) fL MCH 23.8 L (26-34) PG MCHC 30.6 (30-36) % RDW 18.4 H (11.6-14.8) % Plt Count 349 (150-400) X10^3/uL Neut % (Auto) 76.8 H (50-75) % Lymph % (Auto) 11.1 L (25-40) % [place] % (Auto) 6.6 (3-14) % Eos % (Auto) 4.9 H (2-4) % Baso % (Auto) 0.6 (0-2) % Neut # (Auto) 5700 (7135-3155) /uL Lymph # (Auto) 800 L (3063-6324) /uL [place] # (Auto) 500 (0-900) /uL Eos # (Auto) 400 (0-450) /uL Baso # (Auto) 0 (0-100) /uL PT 12.9 H (10.1-12.7) SECONDS INR 1.1 (0.9-1.3) APTT 31 (26.4-36.2) SECONDS Sodium 141 (137-145) mmol/L Potassium 3.4 (3.4-5.1) mmol/L Chloride 106 (98-107) mmol/L Carbon Dioxide 27 (22-32) mmol/L BUN 7 (7-17) mg/dL Creatinine 0.55 (0.52-1.04) mg/dL Estimated GFR > 60.0 (>60) mL/min BUN/Creatinine Ratio 12.7 (6-22) Glucose 118 H (80-110) mg/dL Calcium 9.3 (8.4-10.2) mg/dL Total Bilirubin 0.4 (0.2-1.3) mg/dL AST 27 (14-36) IU/L ALT 15 (<35) IU/L Alkaline Phosphatase 66 (38-126) U/L Troponin I < 0.012 (0.01-0.034) ng/mL Total Protein 6.9 (6.3-8.2) g/dL Albumin 3.9 (3.5-5.0) g/dL Globulin 3.0 (1.7-4.1) g/dL Albumin/Globulin Ratio 1.3 (1.0-2.8) Procalcitonin (<0.5) ng/mL 09/16/19 Range/Units 20:20 WBC (4.5-11.0) X10^3/uL RBC (4.0-5.2) X10^6/uL Hgb (12.0-16.0) g/dL Hct (36-46) % MCV (80-100) fL MCH (26-34) PG MCHC (30-36) % RDW (11.6-14.8) % Plt Count (150-400) X10^3/uL Neut % (Auto) (50-75) % Lymph % (Auto) (25-40) % Preston % (Auto) (3-14) % Eos % (Auto) (2-4) % Baso % (Auto) (0-2) % Neut # (Auto) (5078-0865) /uL Lymph # (Auto) (7267-1726) /uL Preston # (Auto) (0-900) /uL Eos # (Auto) (0-450) /uL Baso # (Auto) (0-100) /uL PT (10.1-12.7) SECONDS INR (0.9-1.3) APTT (26.4-36.2) SECONDS Sodium (137-145) mmol/L Potassium (3.4-5.1) mmol/L Chloride (98-107) mmol/L Carbon Dioxide (22-32) mmol/L BUN (7-17) mg/dL Creatinine (0.52-1.04) mg/dL Estimated GFR (>60) mL/min BUN/Creatinine Ratio (6-22) Glucose (80-110) mg/dL Calcium (8.4-10.2) mg/dL Total Bilirubin (0.2-1.3) mg/dL AST (14-36) IU/L ALT (<35) IU/L Alkaline Phosphatase (38-126) U/L Troponin I (0.01-0.034) ng/mL Total Protein (6.3-8.2) g/dL Albumin (3.5-5.0) g/dL Globulin (1.7-4.1) g/dL Albumin/Globulin Ratio (1.0-2.8) Procalcitonin < 0.05 (<0.5) ng/mL Imaging Data Chest x-ray: Radiologist's Impression: Hiatal hernia Hyperexpanded consistent with emphysema ECG Data Attestation: I personally reviewed and interpreted this ECG as follows: Prior ECG tracings: not available for review Interpretation: Sinus tachycardia at Ventricular rate of 117 Normal axis Normal QRS Normal QTC Nonspecific ST T wave changes MDM Narrative Medical decision making narrative: Patient was given 2 more DuoNebs and a continuous neb and still remained hypoxic to 85 on room air. She was also given steroids. Has not had a increased sputum production or change in color of her sputum. Held on antibiotics of fell this is less likely an infection. Did seem to be fairly sudden onset of the shortness of breath. Discussed the case with Dr. liu with Internal Medicine who will admit for further evaluation and treatment. Discussed initial with the patient. She expressed understanding and agreement. Discharge Plan Departure Patient Disposition: Admitted As Inpatient Clinical Impression: Acute exacerbation of chronic obstructive airways disease, Hypoxia Discharge Date/Time: 09/16/19 22:33 Admit Date/Time: 09/16/19 21:26 Admit Provider: Renu Liu
--- NOTE | 2019-09-16 18:43 | DI.RAD.S_ITS ---
PROCEDURE: XR CHEST 1V INDICATIONS: SOB TECHNIQUE: One view of the chest was acquired. COMPARISON: [facility], CR, XR CHEST 1V, 09/09/2019, 21:00. FINDINGS: Surgical changes and devices: None. Lungs and pleura: Lungs are hyperexpanded but clear. No pleural effusions or pneumothorax. Mediastinum: Mediastinal contours appear normal. Pulmonary arteries are prominent. No central venous congestion. Moderate sized hiatal hernia. Heart size is normal. Bones and chest wall: No suspicious bony lesions. Overlying soft tissues appear unremarkable. IMPRESSION: 1. Chronic, moderate size hiatal hernia. 2. Hyperexpansion suggesting emphysema. Dictated by: Ilda Menendez M.D. on 09/16/2019 at 20:31 Approved by: Ilda Menendez M.D. on 09/16/2019 at 20:32
[2019-09-16] MEDS: ALBUTEROL/IPRATROPIUM 3 ML AMPUL INH ×3 (18:46→23:02)
[2019-09-16] MEDS: methylPREDNISolone 125 MG/2 ML VIAL IV (19:15)
[2019-09-16] MEDS: ALBUTEROL 2.5 MG/3 ML NEB (ADULT) 15 MG INH (19:30)
[2019-09-16 20:30] LABS: Add Manual Diff / Slide Review NO; Basophils Absolute Auto 0 /uL (0-100); Basophils Percent Auto 0.6 % (0-2); Eosinophils Absolute Auto 400 /uL (0-450); Eosinophils Percent Auto 4.9 % (2-4); Hematocrit 40.7 % (36-46); Hemoglobin 12.4 g/dL (12.0-16.0); Lymphocytes Absolute Auto 800 /uL (1100-4500); Lymphocytes Percent Auto 11.1 % (25-40); Mean Corpuscular HGB Conc 30.6 % (30-36); Mean Corpuscular Hemoglobin 23.8 PG (26-34); Monocytes Absolute Auto 500 /uL (0-900); Monocytes Percent Auto 6.6 % (3-14); Neutrophils Absolute Auto 5700 /uL (1500-7000); Neutrophils Percent Auto 76.8 % (50-75); Platelet Count 349 X10^3/uL (150-400); Red Blood Cell Count 5.22 X10^6/uL (4.0-5.2); Red Cell Distribution Width 18.4 % (11.6-14.8); White Blood Cell Count 7.4 X10^3/uL (4.5-11.0)
[2019-09-16 20:34] LABS: Procalcitonin < 0.05 ng/mL (<0.5)
[2019-09-16 20:38] LABS: INR 1.1 (0.9-1.3); Prothrombin Time 12.9 SECONDS (10.1-12.7)
[2019-09-16 20:40] LABS: PTT Partial Thromboplastin Tim 31 SECONDS (26.4-36.2)
[2019-09-16 20:44] LABS: Alanine Aminotransferase 15 IU/L (<35); Albumin 3.9 g/dL (3.5-5.0); Albumin Globulin Ratio 1.3 (1.0-2.8); Alkaline Phosphatase 66 U/L (38-126); Aspartate Aminotransferase 27 IU/L (14-36); BUN Creatinine Ratio 12.7 (6-22); Bilirubin Total 0.4 mg/dL (0.2-1.3); Blood Urea Nitrogen 7 mg/dL (7-17); Calcium 9.3 mg/dL (8.4-10.2); Carbon Dioxide 27 mmol/L (22-32); Chloride 106 mmol/L (98-107); Estimated Glomerular Filt Rate > 60.0 mL/min (>60); Glucose 118 mg/dL (80-110); HEMOLYSIS 23 (0-50); Potassium 3.4 mmol/L (3.4-5.1); Sodium 141 mmol/L (137-145); Total Protein 6.9 g/dL (6.3-8.2)
[2019-09-16 20:56] LABS: Troponin I < 0.012 ng/mL (0.01-0.034)
--- NOTE | 2019-09-16 21:10 | PC.NURSE ---
Dr. Romo Trial pt without O2. Pt Dropping to 88 O2. Returned pt to 3 l and O2 saturation 91-93%. Dr. Romo now discussion Admission.
--- NOTE | 2019-09-16 21:29 | P.HP_ITS ---
History of Present Illness History of Present Illness Date Patient Seen: 09/16/19 Time Patient Seen: 21:29 Date of Onset of Symptoms: 09/16/19 Chief complaint: shortness of breath, hx of copd Narrative: This is a 78 year chronically ill female who lives alone and developed increasing anxiety and shortness of breath mid day today. She gives a history of ?asthma? without need for home oxygen, usually treated with lorazepam and a prednisone course. Yesterday she apparently felt at baseline with her chronic asthma. She says that Dr. Evans recently rotated her from lorazepam to alprazolam because the lorazepam was no longer helping her panic disorder. She took her 1st dose last night and then slept all night and half the day, waki ng up very anxious and short of breath at noon today. The paramedics report an 84% saturation on room air which responded to nasal cannula oxygen 2 L up to the low 90s and has persisted. Her chest x-ray shows under exposure and over expansion without any clear infiltrate or typical Covid appearance. She has been quarantined at home for the last 2 months, being very, very careful to avoid any potential exposures with her only visits coming from her daughter and her son-in-law who have been healthy throughout. Her only trip outside the house was 1 trip to the [employer] commissary during the geriatric shopping hour early in the morning, to shop for groceries. She is a former smoker. She also reports falling onto her tailbone when she got up this morning. She denies any other injuries. Patient History Medical History (Updated 09/16/19 @ 21:59 by Renu Liu MD) Anemia (Inactive) Anxiety (Acute) Asthma (Acute) COPD (chronic obstructive pulmonary disease) (Acute) Headache (Acute) Hypertension (Acute) Hypothyroidism (acquired) (Acute) Memory dysfunction (Acute) Surgical History (Updated 09/16/19 @ 21:59 by Renu Liu MD) H/O hysterectomy with oophorectomy (Acute) H/O thyroidectomy (Acute) Family & Social History Safety & Behavioral: Feels Safe in Current Yes Environment Been Physically Hurt or No Threatened By a Person Tobacco & Substance use: Smoking Status Unknown if ever smoked alcohol intake frequency holiday/special occasion Substance Use Type does not use Comment: Her backup decision maker is Saray Friedman, her daughter. She is a former smoker who lives alone in her own home in [place]. Her primary care is Dr. Evans. Meds Home Medications and Allergies Home Medications Medication Instructions Recorded Confirmed Type prednisone 10 mg PO DAILY #5 tab 08/02/19 Rx Allergies Allergy/AdvReac Type Severity Reaction Status Date / Time adhesive tape Allergy Severe skin welt, Verified 08/02/19 18:58 bruising, and tears codeine [CODEINE] Allergy Severe Nausea Unverified 08/02/19 18:52 Sulfa (Sulfonamide Allergy Severe Nausea Unverified 08/02/19 18:52 Antibiotics) [SULFA (SULFONAMIDE ANTIBIOTICS)] amoxicillin [AMOXICILLIN] Allergy Intermediate GI UPSET Unverified 07/27/17 1 2:06 Review of Systems Review of Systems Narrative: Positive for anxiety, panic attack, shortness of breath. Negative for fevers, chills, sweats, nausea, vomiting, chest pain, abdominal pain, rash, seizures, headaches, joint pain, difficulty walking, sore throat, headache, new allergies. ROS: Yes All systems reviewed with the patient and are negative except as otherwise documented Exam Vital Signs (past 8 hours): - 09/16/19 18:50 09/16/19 19:37 09/16/19 20:10 Pulse Rate 118 H 120 H 125 H Respiratory Rate 28 H 32 H 36 H Blood Pressure [Right Arm] 115/56 L Pulse Oximetry 100 98 96 09/16/19 20:40 09/16/19 20:57 09/16/19 21:00 Pulse Rate 129 H 123 H Respiratory Rate 26 H 32 H Blood Pressure [Right Arm] 104/57 L 98/59 L Pulse Oximetry 90 L 90 L 91 Oxygen Delivery Method Room Air Oxygen Flow Rate 3 Narrative Exam Narrative: She is alert and oriented x3. She is in moderate respiratory distress and anxiety. Extraocular muscles are intact. Pupils are equally round and reactive to light and accommodation. Sclerae are pink and nonicteric. No lymph nodes are felt head, neck, supraclavicular area. There is no JVD. No carotid bruits are heard. There is no thyromegaly. A thyroidectomy scar is present on the upper chest. Heart is tachycardic regular rhythm distant without murmur. Lungs have heavy wheezes bilaterally without crackles. Abdomen is soft, bowel sounds positive, nontender, no organomegaly. Breast pelvic and rectal exams are not done today. Extremities have no ankle edema. No lymph nodes are felt. Neuro exam cranial nerves 2-12 test intact There is no tremor. Motor function is 5/5 throughout. DTRs are symmetric. No gait or balance testing is done tonight. Skin no rash or jaundice. Objective Labs Result Diagrams: 09/16/19 20:20 09/16/19 20:20 Labs: Laboratory Results - last 24 hr 09/16/19 09/16/19 09/16/19 20:20 20:20 20:20 WBC 7.4 RBC 5.22 H Hgb 12.4 Hct 40.7 MCV 78.0 L MCH 23.8 L MCHC 30.6 RDW 18.4 H Plt Count 349 Neut % (Auto) 76.8 H Lymph % (Auto) 11.1 L [place] % (Auto) 6.6 Eos % (Auto) 4.9 H Baso % (Auto) 0.6 Neut # (Auto) 5700 Lymph # (Auto) 800 L [place] # (Auto) 500 Eos # (Auto) 400 Baso # (Auto) 0 PT 12.9 H INR 1.1 APTT 31 Sodium 141 Potassium 3.4 Chloride 106 Carbon Dioxide 27 BUN 7 Creatinine 0.55 Estimated GFR > 60.0 BUN/Creatinine Ratio 12.7 Glucose 118 H Calcium 9.3 Total Bilirubin 0.4 AST 27 ALT 15 Alkaline Phosphatase 66 Troponin I < 0.012 Total Protein 6.9 Albumin 3.9 Globulin 3.0 Albumin/Globulin Ratio 1.3 Procalcitonin 09/16/19 20:20 WBC RBC Hgb Hct MCV MCH MCHC RDW Plt Count Neut % (Auto) Lymph % (Auto) [place] % (Auto) Eos % (Auto) Baso % (Auto) Neut # (Auto) Lymph # (Auto) [place] # (Auto) Eos # (Auto) Baso # (Auto) PT INR APTT Sodium Potassium Chloride Carbon Dioxide BUN Creatinine Estimated GFR BUN/Creatinine Ratio Glucose Calcium Total Bilirubin AST ALT Alkaline Phosphatase Troponin I Total Protein Albumin Globulin Albumin/Globulin Ratio Procalcitonin < 0.05 Assessment & Plan Assessment & Plan narrative: Acute Hypoxic Respiratory Failure, Present on Admission, Acute -Sat of 84% on R.A. on presentation, persisting despite nebulized Duoneb, rising to low 90's on 2L NC -Duoneb q4 prn, Solumedrol 60 mg IV q6h -COVID 19 testing and isolation until rules out -She has been quarantined at home for 2 months, with her Daughter and Son-in-law the only visitors and grocery shopping at the [employer] commissary only once, while masked, during special older person hours. -Check D-dimer due to her report of excessive prolonged sedation/sleeping after first dose of Alprazolam last night COPD Exacerbation, Present on Admission, Chronic -Solumedrol IV, NC Oxygen and Duoneb ordered -No pneumonia on CXR and WBC 7.4 Hypothyroidism, Present on Admission, Chronic -Continue Levothyroxine Anxiety, Panic Attacks, Present on Admission, Chronic -Lorazepam prn -Reports falls on recent attempt to change from chronic Lorazepam to Alprazolam -Advise no Benzodiazepine use at home
--- NOTE | 2019-09-16 22:20 | PC.NURSE ---
Speaking with daughter on phone. She reports pt fell 3 times today and was complaining of head pain along with her difficulty breathing. Daughter reports pt slept all day and was not feeling her self or knows why she fell. Daughter updated on staying at hospital.
[2019-09-17] VITALS (11 sets, daily range): BP systolic 106–157; BP diastolic 64–83; PULSE 109–135; RESP 14–28; TEMP 36.2–37.1; O2SAT 92–96; BMI 25.7
[2019-09-17] MEDS: methylPREDNISolone 125 MG/2 ML VIAL 60 MG IV ×4 (01:07→21:14)
[2019-09-17] MEDS: SODIUM CHLORIDE 0.9% 1,000 ML 75 ML IV ×2 (01:09→15:31)
[2019-09-17 02:10] LABS: COVID19 -Nasal RAPID Negative (Negative)
[2019-09-17] MEDS: ALBUTEROL/IPRATROPIUM 3 ML AMPUL INH ×4 (02:38→18:49)
[2019-09-17 05:17] LABS: Add Manual Diff / Slide Review NO; Basophils Absolute Auto 0 /uL (0-100); Basophils Percent Auto 0.4 % (0-2); Eosinophils Absolute Auto 0 /uL (0-450); Hematocrit 40.6 % (36-46); Hemoglobin 12.6 g/dL (12.0-16.0); Lymphocytes Absolute Auto 300 /uL (1100-4500); Lymphocytes Percent Auto 6.9 % (25-40); Mean Corpuscular Volume 77.5 fL (80-100); Monocytes Absolute Auto 0 /uL (0-900); Monocytes Percent Auto 0.6 % (3-14); Neutrophils Absolute Auto 4600 /uL (1500-7000); Neutrophils Percent Auto 92.1 % (50-75); Platelet Count 321 X10^3/uL (150-400); Red Blood Cell Count 5.24 X10^6/uL (4.0-5.2); Red Cell Distribution Width 18.3 % (11.6-14.8)
[2019-09-17 05:21] LABS: D Dimer 200 ng/mL (<230)
[2019-09-17 05:23] LABS: BUN Creatinine Ratio 16.7 (6-22); Blood Urea Nitrogen 9 mg/dL (7-17); Calcium 9.5 mg/dL (8.4-10.2); Carbon Dioxide 26 mmol/L (22-32); Chloride 104 mmol/L (98-107); Estimated Glomerular Filt Rate > 60.0 mL/min (>60); Glucose 166 mg/dL (80-110); HEMOLYSIS < 15 (0-50); Potassium 4.1 mmol/L (3.4-5.1); Sodium 140 mmol/L (137-145)
[2019-09-17] MEDS: ENOXAPARIN 40 MG/0.4 ML SYRINGE SUBCUT (08:27)
--- NOTE | 2019-09-17 11:26 | PT.IIE ---
Current Diagnoses Chronic obstructive pulmonary disease with (acute) exacerbation (09/16/19) Surgical History (Last Updated 09/16/19 @ 21:59 by Renu Liu MD) H/O hysterectomy with oophorectomy (Acute) H/O thyroidectomy (Acute) Medical History (Last Reviewed 09/17/19 @ 01:52 by Matt Romo DO) Anemia (Inactive) Anxiety (Acute) Asthma (Acute) COPD (chronic obstructive pulmonary disease) (Acute) Headache (Acute) Hypertension (Acute) Hypothyroidism (acquired) (Acute) Memory dysfunction (Acute) Physical Therapy Inpatient Evaluation/Re-Eval M1 PT/OT-IP Prior Functional Status Start: 09/17/19 10:15 Freq: NEEDED Status: Active Protocol: Document 09/17/19 11:04 AW (Rec: 09/17/19 11:26 AW [id number]) Medical Review Prior Functional Status Medical History Reviewed Yes Communication WNL. Pt is an effective verbal communicator Mobility and Gait Pt reports independent ambulation without assistive device, but states that she tends to use mckeon and furniture for support early in the morning and when tired. She recently went to the [employer] and walked the parking lot and around the store with a cart. She has been having trouble gardening and vacuuming due to shortness of breath. Activities of Daily Living and IADL's Independent Prior Functional Level (Other details) Pt with COPD but does not use supplemental O2 at home. Social History Household Members none Living Arrangements House Number of Floors (Floors) One Floor Number of Stairs To Enter/Railing? 3 MARLENY with wide bilateral rails. She tends to use the right rail ascending. Home Environment Standard Height Toilet,Walk in Shower,Tub/Shower Home Equipment Straight Cane,Shower Seat without Backrest,Hand Held Shower,Grab Bars In Shower Additional Social History Comment Pt's supportive daughter, Mmee, lives nearby and checks in frequently. M2 PT-IP Current Condition Start: 09/17/19 10:15 Freq: NEEDED Status: Active Protocol: Document 09/17/19 11:04 AW (Rec: 09/17/19 11:26 AW [id number]) Physical Therapy Current Condition Current Condition Evaluation Date 09/17/19 Treatment Diagnosis COPD exacerbation, difficulty in walking Onset Date 09/16/19 M3 PT-IP Subjective Start: 09/17/19 10:15 Freq: NEEDED Status: Active Protocol: Document 09/17/19 11:04 AW (Rec: 09/17/19 11:26 AW [id number]) Subjective Physical Therapy Visit Type Type Initial Evaluation Visit Start Time 10:25 Visit Stop Time 10:52 Total Visit Minutes 27 Physical Therapy Visit Comments Patient Comments Pt was up in the chair for breakfast but willing to work with PT Therapy Pain Assessment Pain When Pain Assessed During Mobility Pain Present Pain Present Denied Pain M4 PT-IP Mobility and Gait Start: 09/17/19 10:15 Freq: NEEDED Status: Active Protocol: Document 09/17/19 11:04 AW (Rec: 09/17/19 11:26 AW [id number]) PT-Bed Mobility Assessment Rolling Level of Assist Independent Scooting Scooting to Edge of Bed Independent PT-Transfer Assessment Sit to and From Stand Sit to and from Stand Standby Assistance,Use of Upper Extremities Equipment Transfer Assistive Device Gait Belt Transfers Transfer Destination Chair Transfer Technique pt ambulated without AD Transfer Ability Level of Assist Independent,Use of Upper Extremities Comments Mobility Comments Supine BP was 123/80. Pt performed bed mobility independently and sat EOB with and without UE support during BLE strength testing. She stood from the bed requiring SBA due to initial unsteadiness. She then ambulated in the room with and without IV pole support, requiring SBA with IV pole and CGA without. She transferred to the chair SBA where she was positioned with call light and all needs within reach. Pt verbalized agreement to use call light for all mobility needs. Gait Assessment Gait Gait Assistance Required: Standby Assistance Distance (Feet) 50 Assistive Devices Assistive Device Gait Belt Gait Deviations General Gait Pattern Antalgic,Decreased Stride Length,Decreased Feet Clearance,Flexed Trunk Factors Limiting Gait Function Factors Limiting Gait Function Decreased Activity Tolerance, Decreased Strength,Poor Balance,Respiratory Distress Comments Gait Comments Pt ambulated around the room ~ 35 feet with IV pole for support SBA and ~15 feet without support CGA. Breathing was labored and pt was coughing but SpO2 was steady at 93-94% on 2L O2 via NC. Stair Climbing Assessment Comments Stair Climbing Comments Not assessed. PT-Balance Assessment Sitting Balance and Reactions Static Sitting Balance Ability Good Dynamic Sitting Balance Ability Good Standing Balance and Reactions Static Standing Balance Ability Fair Dynamic Standing Balance Ability Fair Device Used IV pole Balance Tests Single Limb Standing 1 sec each leg M5 PT-IP Objective Assessments Start: 09/17/19 10:15 Freq: NEEDED Status: Active Protocol: Document 09/17/19 11:04 AW (Rec: 09/17/19 11:26 AW [id number]) Orientation Orientation/Cognition Level of Alertness Alert Orientation Name,Month,Year,Place, Situation Language Function Ability No Deficits Noted Safety Awareness Decreased Safety Awareness Gross Range of Motion Upper Extremity ROM Assessment Within Functional Limits Lower Extremity ROM Assessment Within Functional Limits Strength Lower Extremity Strength Assessment Bilaterally Impaired Hip 4/5 Knee 4-/5 Ankle 4/5 Coordination Assessment Gross Coordination Gross Coordination WNL Sensation Assessment Sensation Gross Sensation WNL M6 PT-IP Treatment Start: 09/17/19 10:15 Freq: NEEDED Status: Active Protocol: Document 09/17/19 11:04 AW (Rec: 09/17/19 11:26 AW [id number]) Physical Therapy Treatment Education Education Provided Safety Other Treatments Other Treatment Performed Provided education on role of PT, plan of care, pursed lip breathing, and rationale for selection of assistive device. M7 PT-IP Assessment and Plan Start: 09/17/19 10:15 Freq: NEEDED Status: Active Protocol: Document 09/17/19 11:04 AW (Rec: 09/17/19 11:26 AW [id number]) PT Summary Assessment and Plan Potential Rehabilitation Potential Good Status of Condition at Evaluation Evolving Summary Impairments Strength,Balance,Cognition, Transfers,Gait,Activity Tolerance Assessment Summary Katelyn is a 78 yo woman admitted with COPD exacerbation. She does not use supplemental O2 at home and reports independent function at baseline though she does admit increasing difficulty with gardening and heavy housework due to shortness of breath. On evaluation, activity tolerance was limited , BLE strength deficits were apparent, and pt demonstrated initial unsteadiness in standing and required SBA to CGA for ambulation with and without AD. Discussed possibility of using FWW at home, at least short-term, and pt was agreeable to trial at next session. She will benefit from continued acute PT to address impairments identified here and may also benefit from home health PT to address home safety and to progress gait training with or without assistive device. Goals Transfer Goal Independent,Cane,Front Wheeled Walker Gait Goal Independent,Cane,Front Wheel Walker Gait Distance 200 Other Goals (goals to be met with LRAD or without AD) - up/down 3 steps with R rail ascending SBA Days to Meet Goals 5 Frequency of Treatment Frequency Of Treatment Once a Day Treatment Plan Physical Therapy Treatment Plan Transfer Training,Gait Training,Therapeutic Exercise, Balance Retraining,Discharge Planning Other Recommendations and Next Treatment ambulation with FWW or SPC as Focus appropriate Recommendations To Nursing Amount of Assist Needed Standby Assistance,1 Person Assist Discharge Recommendations PT Discharge Recommendations Home with Assistance,Home Health Equipment Needed for Home Before may need FWW for home use Discharge Transportation Needs at Discharge Private Vehicle
--- NOTE | 2019-09-17 11:36 | CM.DANOTE ---
DCP: Case received, EMR reviewed and met with patient. Introduced self and role. Was able to meet with patient and obtain information regarding her baseline activity level, living and health situation. DCP assessment completed with information currently available. Patient is a 78 year old female who admitted yesterday evening to the care of the hospitalist team. PCP: Dr. Evans. Payer: confirmed: Medicare/[employer]. Patient came to the hospital via ambulance secondary to increased shortness of breath. Patient has history of asthma/COPD. She also had a fall prior to hospital visit, in which she landed on her tailbone. Patient had become more short of breath at home, and her medications were not improving her situation. Met with patient in her room. She is currently on oxygen, and confirmed that she is not on any home oxygen. She mentioned that Dr. Rincon is no longer her primary, and she sees Dr. Evans in the same practice. She uses inhalers at home for her symptoms. Her daughter, Meme Atkinson, is her decision maker, and patient stated that she resides about 400 yards from her. Patient has given permission to contact her for any needs or further information, for patient stated, she's hard of hearing, and sometimes, she misses out on things. Patient stated that she is independent at baseline. She drives, and shops at the commisary. Her is , and was in the [employer] for approximately 22 years. P: DCP to follow, and will be available for any resources needed. Edna Carpenter RN/Entry Level Management
--- NOTE | 2019-09-17 17:34 | PM.PN.1 ---
Subjective Subjective Date Patient Seen: 09/17/19 Interval history: Patient is a 78-year-old female who was admitted yesterday for acute hypoxic respiratory failure secondary to COPD. She continues to be short of breath. She continues to be hypoxic on room air. Patient is now down to 2 L of oxygen. She has a nonproductive cough. She does report some anxiety. She quickly tires out with minimal activity. Exam Vital Signs (past 8 hours): - 09/17/19 12:37 09/17/19 13:00 09/17/19 15:58 Temperature 98.2 F Pulse Rate 117 H 120 H Respiratory Rate 24 20 26 H Blood Pressure 147/83 H Pulse Oximetry 93 92 92 Oxygen Delivery Method Nasal Cannula Oxygen Flow Rate 2 Narrative Exam Narrative: Pleasant female resting comfortably in no obvious distress Lungs: Decreased breath sounds with end-expiratory wheezing bilaterally Cardiac exam: Tachycardic regular rate and rhythm normal S1-S2 Abdomen: Soft nontender nondistended Extremities: No edema Objective Labs Result Diagrams: 09/17/19 04:45 09/17/19 04:45 Labs: Laboratory Results - last 24 hr 09/16/19 09/16/19 09/16/19 20:20 20:20 20:20 WBC 7.4 RBC 5.22 H Hgb 12.4 Hct 40.7 MCV 78.0 L MCH 23.8 L MCHC 30.6 RDW 18.4 H Plt Count 349 Neut % (Auto) 76.8 H Lymph % (Auto) 11.1 L [place] % (Auto) 6.6 Eos % (Auto) 4.9 H Baso % (Auto) 0.6 Neut # (Auto) 5700 Lymph # (Auto) 800 L [place] # (Auto) 500 Eos # (Auto) 400 Baso # (Auto) 0 PT 12.9 H INR 1.1 APTT 31 D-Dimer Sodium 141 Potassium 3.4 Chloride 106 Carbon Dioxide 27 BUN 7 Creatinine 0.55 Estimated GFR > 60.0 BUN/Creatinine Ratio 12.7 Glucose 118 H Calcium 9.3 Total Bilirubin 0.4 AST 27 ALT 15 Alkaline Phosphatase 66 Troponin I < 0.012 Total Protein 6.9 Albumin 3.9 Globulin 3.0 Albumin/Globulin Ratio 1.3 Procalcitonin COVID-19 PCR 09/16/19 09/17/19 09/17/19 20:20 00:45 00:45 WBC RBC Hgb Hct MCV MCH MCHC RDW Plt Count Neut % (Auto) Lymph % (Auto) [place] % (Auto) Eos % (Auto) Baso % (Auto) Neut # (Auto) Lymph # (Auto) [place] # (Auto) Eos # (Auto) Baso # (Auto) PT INR APTT D-Dimer Sodium Potassium Chloride Carbon Dioxide BUN Creatinine Estimated GFR BUN/Creatinine Ratio Glucose Calcium Total Bilirubin AST ALT Alkaline Phosphatase Troponin I Total Protein Albumin Globulin Albumin/Globulin Ratio Procalcitonin < 0.05 COVID-19 PCR Cancelled Negative 09/17/19 09/17/19 09/17/19 04:45 04:45 04:45 WBC 5.0 RBC 5.24 H Hgb 12.6 Hct 40.6 MCV 77.5 L MCH 24.0 L MCHC 31.0 RDW 18.3 H Plt Count 321 Neut % (Auto) 92.1 H Lymph % (Auto) 6.9 L [place] % (Auto) 0.6 L Eos % (Auto) 0.0 L Baso % (Auto) 0.4 Neut # (Auto) 4600 Lymph # (Auto) 300 L [place] # (Auto) 0 Eos # (Auto) 0 Baso # (Auto) 0 PT INR APTT D-Dimer 200 Sodium 140 Potassium 4.1 Chloride 104 Carbon Dioxide 26 BUN 9 Creatinine 0.54 Estimated GFR > 60.0 BUN/Creatinine Ratio 16.7 Glucose 166 H Calcium 9.5 Total Bilirubin AST ALT Alkaline Phosphatase Troponin I Total Protein Albumin Globulin Albumin/Globulin Ratio Procalcitonin COVID-19 PCR Assessment & Plan Assessment & Plan narrative: Impression 1. Acute hypoxic respiratory failure -continue steroids, continue nebulizer, continue oxygen -will add Mucinex and Pulmicort -if the patient continues to be hypoxic tomorrow consider CT a of the chest to rule out PE and/or pneumonia 2. COPD exacerbation -continue treatment as above -at Pulmicort 3. Hypothyroidism, Present on Admission, Chronic -Continue Levothyroxine Anxiety, Panic Attacks, Present on Admission, Chronic -Lorazepam prn -Reports falls on recent attempt to change from chronic Lorazepam to Alprazolam -Advise no Benzodiazepine use at home 4. Hypertension with a history of paroxysmal atrial fibrillation -will resume Cardizem 30 mg b.i.d. Quality VTE Deep Vein Thrombosis/Pulmonary Embolism Present on Admission: No
--- NOTE | 2019-09-17 18:41 | PC.NURSE ---
Addendum entered by Deirdre Borja R.N. 09/17/19 22:54: pt started to report throat irritation. MIGDALIA Hurst ordered lozenges and pt now reporting improvement. pt also reporting headache. No pain medications ordered and states she doesn't take anything at home. I offered cold compress and she agreed I also alerted pt that we will need to request an order from the provider and to let us know if she changes her mind, pt agreed. Original Note: EVENING SHIFT. pt AO and receptive to care. pt denying pain and reporting tightness in chest which is improved post-RT treatments. O2 low 90's with 2L NC and reporting SOB with rest and exertion. Up to BR with FWW. Expiratory wheezes auscultated to anterior lung lobes, inspiratory and expiratory wheezes to posterior lungs. Tele showing known arrhythmia and tachy (110's). Left AC infusing LR at 75/hr and tolerating well.
[2019-09-17] MEDS: BUDESONIDE 0.5 MG/2 ML NEB INH (21:04)
[2019-09-17] MEDS: guaiFENesin ER 600 MG TAB PO (21:14)
[2019-09-17] MEDS: BENZOCAINE/MENTHOL 1 LOZ PKT 1 EACH PO (22:00)
[2019-09-18] VITALS (11 sets, daily range): BP systolic 126–142; BP diastolic 70–97; PULSE 103–124; RESP 16–28; TEMP 36.2–37.1; O2SAT 87–96
--- NOTE | 2019-09-18 00:36 | PC.NURSE ---
Addendum entered by Basilio Ramirez R.N. 09/18/19 00:46: RT notified of pt coughing and having tight breath sounds. RT at bedside. Original Note: Cylinder Block Mechanic Note: 0030: Resting in bed. Vital signs stable. Remains on O2 2L/NC. Breath sounds are diminished and pt has an occasional tight cough. Alert, oriented X3. IV in place in lt AC. Pt states her headache is better.
[2019-09-18] MEDS: ALBUTEROL/IPRATROPIUM 3 ML AMPUL INH ×5 (00:51→20:03)
[2019-09-18] MEDS: SODIUM CHLORIDE 0.9% 1,000 ML 75 ML IV (04:40)
[2019-09-18] MEDS: methylPREDNISolone 125 MG/2 ML VIAL 60 MG IV ×3 (06:26→20:59)
[2019-09-18] MEDS: BUDESONIDE 0.5 MG/2 ML NEB INH ×2 (06:31→20:03)
[2019-09-18] MEDS: ENOXAPARIN 40 MG/0.4 ML SYRINGE SUBCUT (08:07)
[2019-09-18] MEDS: dilTIAZem 30 MG TABLET PO ×2 (09:46→21:01)
--- NOTE | 2019-09-18 10:41 | PT.IPTN ---
Current Diagnoses Chronic obstructive pulmonary disease with (acute) exacerbation (09/16/19) Physical Therapy Treatment Note M2 PT-IP Current Condition Start: 09/17/19 10:15 Freq: NEEDED Status: Active Protocol: Document 09/17/19 11:04 AW (Rec: 09/17/19 11:26 AW [id number]) Physical Therapy Current Condition Current Condition Evaluation Date 09/17/19 Treatment Diagnosis COPD exacerbation, difficulty in walking Onset Date 09/16/19 M3 PT-IP Subjective Start: 09/17/19 10:15 Freq: NEEDED Status: Active Protocol: Document 09/18/19 10:16 CLB (Rec: 09/18/19 12:34 CLB [id number]) Subjective Physical Therapy Visit Type Type Treatment Note Visit Start Time 10:16 Visit Stop Time 10:41 Total Visit Minutes 25 Number of IS MANAGER Visits 1 Physical Therapy Visit Comments Patient Comments Pt willing to get up to ambulate and use BR. Therapy Pain Assessment Pain When Pain Assessed At Rest Pain Present Pain Present Pain Reported Location Right Upper Anterior Thigh Scale Used could not state Description Cramping Pain Behaviors Holding Area Pain Management Techniques Apply Heat,Modification of Treatment,Re-positioning M4 PT-IP Mobility and Gait Start: 09/17/19 10:15 Freq: NEEDED Status: Active Protocol: Document 09/18/19 10:16 CLB (Rec: 09/18/19 12:34 CLB [id number]) PT-Bed Mobility Assessment Rolling Level of Assist Independent Scooting Scooting to Edge of Bed Independent PT-Transfer Assessment Sit to and From Stand Sit to and from Stand Standby Assistance,Use of Upper Extremities Equipment Transfer Assistive Device Gait Belt,Front Wheeled Walker Transfers Transfer Destination Bed,Toilet Transfer Ability Level of Assist Independent,Use of Upper Extremities Comments Mobility Comments Pt in bed upon arrival SpO2 on 2L 94%, pt able to perform all bed mobility independently . Pt ambulated to BR using FWW SBA and assist with lines. Pt able to perform all pericare. Pt ambulated to sink and washed hands SBA. Pt ambulated in room with FWW SBA and assist with lines. Pt SpO2 on 2L after gait 88%, HR 132. After 2 minutes of rest SpO2 on 2L 94%, HR112. Pt returned to supine independently and performed theraputic exercises . Pt left in bed with alarm on and all needs within reach. Warm blanket on right upper leg for comfort. Gait Assessment Gait Gait Assistance Required: Standby Assistance Distance (Feet) 50 Assistive Devices Assistive Device Gait Belt,Front Wheeled Walker Gait Deviations General Gait Pattern Antalgic,Decreased Stride Length,Decreased Feet Clearance,Flexed Trunk Factors Limiting Gait Function Factors Limiting Gait Function Decreased Activity Tolerance, Decreased Strength,Poor Balance,Respiratory Distress Comments Gait Comments Pt continues to have labored breathing and cough with ambulation. FWW trialed for energy conservation. Pt required SBA ambulating ~50ft. Stair Climbing Assessment Comments Stair Climbing Comments Not assessed. PT-Balance Assessment Sitting Balance and Reactions Static Sitting Balance Ability Good Dynamic Sitting Balance Ability Good Standing Balance and Reactions Static Standing Balance Ability Fair Dynamic Standing Balance Ability Fair M5 PT-IP Objective Assessments Start: 09/17/19 10:15 Freq: NEEDED Status: Active Protocol: Document 09/17/19 11:04 AW (Rec: 09/17/19 11:26 AW [id number]) Orientation Orientation/Cognition Level of Alertness Alert Orientation Name,Month,Year,Place, Situation Language Function Ability No Deficits Noted Safety Awareness Decreased Safety Awareness Gross Range of Motion Upper Extremity ROM Assessment Within Functional Limits Lower Extremity ROM Assessment Within Functional Limits Strength Lower Extremity Strength Assessment Bilaterally Impaired Hip 4/5 Knee 4-/5 Ankle 4/5 Coordination Assessment Gross Coordination Gross Coordination WNL Sensation Assessment Sensation Gross Sensation WNL M6 PT-IP Treatment Start: 09/17/19 10:15 Freq: NEEDED Status: Active Protocol: Document 09/18/19 10:16 CLB (Rec: 09/18/19 12:34 CLB [id number]) Physical Therapy Treatment Exercises Exercises Gluteal Sets,Quad Sets Education Education Provided Safety M7 PT-IP Assessment and Plan Start: 09/17/19 10:15 Freq: NEEDED Status: Active Protocol: Document 09/18/19 10:16 CLB (Rec: 09/18/19 12:34 CLB [id number]) PT Summary Assessment and Plan Potential Rehabilitation Potential Good Status of Condition at Evaluation Evolving Summary Impairments Strength,Balance,Cognition, Transfers,Gait,Activity Tolerance Assessment Summary Pt c/o increased weakness since she had the flu a few months ago. Pt is independent with bed mobility and SBA with assist for lines during ambulation with FWW. Pt continues to have decrease in SpO2 during gait and increased HR. Goals Transfer Goal Independent,Cane,Front Wheeled Walker Gait Goal Independent,Cane,Front Wheel Walker Gait Distance 200 Other Goals (goals to be met with LRAD or without AD) - up/down 3 steps with R rail ascending SBA Days to Meet Goals 5 Frequency of Treatment Frequency Of Treatment Once a Day Treatment Plan Physical Therapy Treatment Plan Transfer Training,Gait Training,Therapeutic Exercise, Balance Retraining,Discharge Planning Other Recommendations and Next Treatment ambulation with FWW or SPC as Focus appropriate, increase gait distance and stairs. Recommendations To Nursing Amount of Assist Needed Standby Assistance,1 Person Assist Discharge Recommendations PT Discharge Recommendations Home with Assistance,Home Health Equipment Needed for Home Before may need FWW for home use Discharge Transportation Needs at Discharge Private Vehicle
--- NOTE | 2019-09-18 10:59 | PM.PN.1 ---
Subjective Subjective Date Patient Seen: 09/18/19 Interval history: Patient is a 78-year-old female who was admitted to the hospital for increasing shortness of breath. Patient was found to have a COPD exacerbation. She has acute hypoxemic respiratory failure. She continues to require oxygen. She is wheezing. She continues to be short of breath. Patient apparently was diagnosed with paroxysmal atrial fibrillation and placed on Cardizem as an outpatient. She was placed on Cardizem 30 mg Q 6 and then reduce to 30 b.i.d.. She also complains of being constipated. Exam Vital Signs (past 8 hours): - 09/18/19 06:32 09/18/19 07:30 09/18/19 10:23 Temperature 97.1 F L Pulse Rate 120 H 105 H 112 H Respiratory Rate 20 22 24 Blood Pressure 126/76 Pulse Oximetry 90 L 93 95 09/18/19 10:56 09/18/19 10:57 Temperature Pulse Rate Respiratory Rate Blood Pressure Pulse Oximetry 92 87 L Oxygen Delivery Method Room Air Oxygen Flow Rate 2 Narrative Exam Narrative: Elderly female somewhat anxious Lungs: Decreased breath sounds with end-expiratory wheezing Cardiac exam tachycardic regular rate and rhythm normal S1-S2 Abdomen: Soft nontender nondistended Extremities: No edema Objective Labs Result Diagrams: 09/17/19 04:45 09/17/19 04:45 Assessment & Plan Assessment & Plan narrative: Impression 1. Acute hypoxic respiratory failure -patient continues to have significant wheezing and hypoxemia -will continue steroids, nebulizers, Pulmicort, and antibiotics -will obtain chest CT today to rule out PE and or pneumonia 2. History of paroxysmal atrial fibrillation -will resume Cardizem 30 b.i.d. 3. COPD exacerbation -treatment as outlined above 4. Hypothyroidism -continue L-thyroxine Will obtain occupational therapy consultation today Will start meds for constipation Quality VTE Deep Vein Thrombosis/Pulmonary Embolism Present on Admission: No
--- NOTE | 2019-09-18 11:06 | DI.CT.S_ITS ---
PROCEDURE: CT ANGIO CHEST PE PROTOCOL INDICATIONS: persistant hypoxia TECHNIQUE: After the administration of intravenous contrast, 2 mm thick sections acquired from the pulmonary apices to the posterior costophrenic angles. 3-dimensional maximum intensity projection (MIP) coronal and sagittal reformats were then acquired through the thorax. For radiation dose reduction, the following was used: automated exposure control, adjustment of mA and/or kV according to patient size. COMPARISON: CT, THORAX WITH CONTRAST, 05/20/2006, 11:31. [facility], CR, XR CHEST 1V, 09/16/2019, 19:16. FINDINGS: Image quality: Excellent. Pulmonary arteries: Pulmonary arteries are normal in size, and demonstrate no intraluminal filling defects to suggest central pulmonary embolism. There is a small filling defect in the segmental left upper lobe pulmonary vein seen on series 4 image 48. Lungs and pleura: Mild appearance of scattered groundglass opacities are present. There are several scattered predominantly lateral punctate nodules within the right upper lobe seen on series 5 images 67 and 70. Prior exam in 2006 is not available for image comparison. No pleural effusions or pneumothorax. Central and peripheral airways are patent. Mediastinum: Heart size is normal, without pericardial effusion. No mediastinal or hilar adenopathy. Thoracic aorta is normal in caliber and enhancement. Esophagus is normal in caliber, with large hiatal hernia. Bones and chest wall: No suspicious bony lesions. Ribs and thoracic spine appear intact throughout. Thyroid gland is unremarkable. No axillary or supraclavicular adenopathy. Abdomen: Visualized upper abdominal solid organs appear normal in the early arterial phase of enhancement. IMPRESSION: 1. No pulmonary embolism. 2. Large hiatal hernia. 3. Appearance of scattered groundglass opacities which could be related to infection or inflammatory change. Underlying areas of air trapping are also suspected. As clinically indicated, high-resolution CT chest may be obtained for further evaluation of these regions. 4. Punctate right upper lobe nodules nonspecific without priors available for comparison. Recommend interval followup as below. Fleischner Society criteria for SOLID lung nodule followup. Nodule size (mm)Low-risk patientHigh-risk patient<6 (single or multiple)No routine followup.Optional CT at 12 months. 6-8 (single or multiple)CT at 6-12 months, then optional CT at 18-24 mo.CT at 6-12 months, then CT at 18-24 months. >8 (single)CT, PET-CT, or biopsy at 3 months. Same as for low-risk pts. >8 (multiple)CT at 3-6 months, then optional CT at 18-24 mo.CT at 3-6 months, then CT at 18-24 months. Recommendations do not apply to lung cancer screening, patients with immunosuppression, or patients with known primary cancer. Dictated by: Fabienne Robb M.D. on 09/18/2019 at 12:16 Approved by: Fabienne Robb M.D. on 09/18/2019 at 12:28
[2019-09-18] MEDS: polyethylene glycoL 3350 17 GM POWD.PACK PO (12:41)
[2019-09-18] MEDS: MONTELUKAST 10 MG TABLET PO (12:42)
[2019-09-18] MEDS: SENNOSIDES 8.6 MG TABLET 17.2 MG PO (12:42)
--- NOTE | 2019-09-18 12:57 | CM.DPC ---
Addendum entered by Edna Carpenter R.N. 09/18/19 15:42: Met with patient's daughter, VIOLA Valentine. Went over senior resources book, for daughter was requesting some caregiving information. Also, in the book, went over senior resources in [place] for Meals on Wheels. Daughter used to work in oncology, and was a UNIVERSITY PROFESSOR. Also, gave her Medicare Choice List showing [employer] phone number, since this has been ordered for her. Discussed life Line, due to fall risk, as well. Addendum entered by Edna Carpenter R.N. 09/18/19 13:54: Rafita from [employer] left a message on this case management rn's phone stating that he will be watching for referral. Addendum entered by Edna Carpenter R.N. 09/18/19 13:07: Left a message with Rafita at [employer], letting him know that the H&P, face sheet, will be faxed over, as well as therapy notes, and that face to face, DC summary will be faxed over upon discharge, as well as home health orders. Original Note: DCP Cont: Met with patient in her room during team rounds. Patient continues to have some shortness of breath and labored breathing during exertion. She was discussing her medication regime with Dr. Stevens. Patient continues to wish to be independent at home. She reconfirmed that her daughter lives near by. According to P.T, patient will need a walker at discharge. Added O.T. orders, per Dr. Stevens, as well. Discussed home health during team rounds. Patient stated, I'm not crazy about the idea, but I suppose it will be ok. Patient was reassured that if she continues to improve, home health can discharge her. No preference as to which agency to use. Patient could benefit with nursing to go over her medications at home, as well as P.T, and O.T, for patient has had falls at home. Dr. Stevens went ahead and signed face to face. P: DCP to continue to follow. Since patient has no preference on home health agencies, and [facility] does not go to [place], will attempt [facility] first. [facility] has a wait time. It is unclear at time if patient will need home oxygen upon discharge. Edna Carpenter RN/Room Service Supervisor
--- NOTE | 2019-09-18 13:50 | OT.IP.EVAL ---
Current Diagnoses Chronic obstructive pulmonary disease with (acute) exacerbation (09/16/19) Past Medical History (Last Reviewed 09/17/19 @ 01:52 by Matt Romo DO) Anemia (Inactive) Anxiety (Acute) Asthma (Acute) COPD (chronic obstructive pulmonary disease) (Acute) Headache (Acute) Hypertension (Acute) Hypothyroidism (acquired) (Acute) Memory dysfunction (Acute) Surgical History (Last Updated 09/16/19 @ 21:59 by Renu Liu MD) H/O hysterectomy with oophorectomy (Acute) H/O thyroidectomy (Acute) Occupational Therapy Inpatient Evaluation/Re-Eval M2 OT-IP Current Condition Start: 09/18/19 13:58 Freq: Status: Active Protocol: Document 09/18/19 13:59 [facility] (Rec: 09/18/19 14:14 [facility] [id number]) Occupational Therapy Current Condition Current Condition Evaluation Date 09/18/19 Treatment Diagnosis Acute hypoxia respiratory failure due to COPD exac. Diagnosis Onset Date 09/16/19 M3 OT- IP Subjective and Pain Start: 09/18/19 13:58 Freq: Status: Active Protocol: Document 09/18/19 13:59 [facility] (Rec: 09/18/19 14:14 [facility] [id number]) OT- Subjective Occupational Therapy Visit Type Type Initial Evaluation Visit Start Time 11:12 Visit Stop Time 13:50 Total Visit Minutes 37 Notes Pt seen prior to going to chest CTA scan and after lunch . Occupational Therapy Visit Comments Patient Comments Pt wanting to shower. Patient/Caregiver Goals To go home. OT Pain Assessment Pain When Pain Assessed At Rest Pain Present Pain Present Denied Pain M4 OT- IP ADL's Start: 09/18/19 13:58 Freq: Status: Active Protocol: Document 09/18/19 13:59 [facility] (Rec: 09/18/19 14:14 [facility] [id number]) OT ADL-Grooming General Evaluation Grooming Ability Standby Assistance Comments OT Grooming Comments SBA at sink. OT ADL-Oral Care General Eval Oral Care Ability Independent OT ADL-Dressing General Eval Lower Body Dressing Ability Standby Assistance Comments OT Dressing Comments VC to sit while taking off her brief. CGA to stand while pulling up brief over her hips for balance. OT ADL-Toileting Comments OT Toileting Comments Pt not having to use the toilet. OT ADL-Bathing Bathing Type Bathing Type Shower General Evaluation Bathing Ability Contact Guard Assistance/JOSI Areas Needing Assistance Retrieving/Setting Up Items Devices Bathing Equipment Hand Held Shower Sprayer, Shower Chair with Arms,Grab Bars Comments OT Bathing Comments Pt needing CGA for balance when not holding to grab bar in order to do pericare needs. Pt agrees that her daughter can be there when she showers and especailly stand by when she stands. Pt had loss of balance while trying to stand and do pericare needs and needing CGA-JOSI for her to regain her balance. M5 OT- IP IADL's Start: 09/18/19 13:58 Freq: Status: Active Protocol: Document 09/18/19 13:59 [facility] (Rec: 09/18/19 14:14 [facility] [id number]) OT-Instrumental Activities of Daily Living Home Safety Awareness Awareness of Need for Assistance at Home Good Awareness Ability to Problem Solve Emergency Able to Problem Solve Situations Home Safety Comments Pt able answer home safety questions with 100% accuracy. Medication Management Medication Management Caregiver Provides Supervision Medication Management Comments Pt's daughter looking at trying to have pt start to use pill organizer. Money Management Money Management Comments Pt states does her own bills. Cost Control Specialist Cost Control Specialist Comments At this time, pt aware will need assist as tires easily. M6 OT- IP Functional Cognition Start: 09/18/19 13:58 Freq: Status: Active Protocol: Document 09/18/19 13:59 [facility] (Rec: 09/18/19 14:14 [facility] [id number]) Cognitive Factors Limiting Selfcare Function Cognitive Ability Level of Alertness Alert Patient Orientation Name,Place,Situation Attention Span Ability Capable of Focused Attention, Capable of Sustained Attention Ability to Follow Commands Able to Follow One Step Commands Safety Awareness Underestimates Need for Assistance Cognitive Comments Cognitive Assessment Comments Pt vc to sit to doff brief. Pt is a bit impulsive however also hard of hearing. Pt does not feel that she needs to use FWW however is a little unsteady on her feet at this time and would be safer for her to use FWW at this time. OT- Vision and Hearing OT- Hearing Assessment OT- Hearing Assessment Hearing Impaired OT- Vision Assessment Visual Acuity Glasses For Reading M7 OT- IP Mobility and Balance Start: 09/18/19 13:58 Freq: Status: Active Protocol: Document 09/18/19 13:59 [facility] (Rec: 09/18/19 14:14 [facility] [id number]) OT- Bed Mobility Assessment Sit to Supine Sit to Supine Assist Standby Assistance OT-Transfer Assessment Sit to and From Stand Sit to and from Stand Contact Guard Assistance Transfers Transfer Ability Contact Guard Assistance, Minimal Assistance Technique Transfer Destination Bed,Chair,Shower Stall Devices Transfer Assistive Devices Gait Belt Comments Mobility Comments Pt needing to hold to surfaces while walking and for pt to assist JOSI for balance when steeping over the threshold of the shower. Pt agrees she is a little unsteady on her feet and would benefit from use of FWW. OT- Balance Assessment Sitting Balance and Reactions Static Sitting Balance Ability Normal Dynamic Sitting Balance Ability Good Standing Balance and Reactions Static Standing Balance Ability Fair M8 OT- IP Objective Assessments Start: 09/18/19 13:58 Freq: Status: Active Protocol: Document 09/18/19 13:59 [facility] (Rec: 09/18/19 14:14 [facility] [id number]) OT Gross Range of Motion Upper Extremity Range of Motion Assessment Within Functional Limits OT Strength Upper Extremity Strength Assessment Within Functional Limits OT-Muscle Tone Assessment Muscle Tone WNL Yes M9 OT- IP Assessment and Plan Start: 09/18/19 13:58 Freq: Status: Active Protocol: Document 09/18/19 13:59 [facility] (Rec: 09/18/19 14:14 [facility] [id number]) OT Summary Assessment and Plan Potential Rehabilitation Potential Excellent Analytic Complexity at Evaluation Low Summary OT Impairments Functional Mobility,Grooming, Dressing,Toileting,Bathing, Toilet Transfers,Shower Transfers,Activity Tolerance Progress Towards Goals Progressing Toward Goals Assessment Summary Pt low complexity and main barrier is now having to use O2 during exertion, decreased dynamic balance and activity tolerance not at her baseline of being independent with no devices. Pt would benefit from home health and daughter to stay with her to assist initially. Goals Grooming Goal Independent Dressing Goal Independent Toileting Goal Independent Bathing Goal Independent Toilet Transfer Goal Independent Shower Transfer Goal Independent Patient/Caregiver Education Goal Demonstrate Energy Conservation and Pacing Days to Meet Goals 5 Frequency of Treatment Frequency Of Treatment Once a Day Treatment Plan OT Treatment Plan ADL Training,Functional Cognition Training,Functional Mobility,Patient/Family Education,Discharge Planning Other Treatment Recommendations and Next Go over energy conservation Treatment Focus information. Discharge Recommendations OT Discharge Recommendations Home with Assistance,Home Health Home Equipment Needs FWW versus 4WW, pt's daughter to find for her. Transportation Needs at Discharge Private Vehicle
[2019-09-18] MEDS: levoFLOXacin 750 MG/150 ML PIGGYBACK 100 MG IV (14:17)
--- NOTE | 2019-09-18 19:57 | PC.NURSE ---
Addendum entered by Steffany Breaux R.N. 09/18/19 20:53: Patient refused HS stool softeners. She states that she had a good size bm earlier and doesnt want to have an accident during the night. Original Note: Patient up in the chair part of the shift. Now back to bed. Short of breath with activity, including talking. RT called for breathing treatment. On 1L o2 w/sats in med 90s. Patient has been A&O, calm and cooperative.
[2019-09-18] MEDS: MIRTAZAPINE 15 MG TABLET PO (21:01)
[2019-09-18] MEDS: guaiFENesin ER 600 MG TAB PO (21:01)
[2019-09-18] MEDS: ACETAMINOPHEN 325 MG TABLET 650 MG PO (21:52)
[2019-09-19 00:20] VITALS: BP 130/71; PULSE 93; RESP 16; TEMP 36.6; O2SAT 97
[2019-09-19 04:00] VITALS: BP 115/69; PULSE 80; RESP 18; TEMP 36.1; O2SAT 96
[2019-09-19] MEDS: methylPREDNISolone 125 MG/2 ML VIAL 60 MG IV ×2 (06:48→13:22)
[2019-09-19 08:00] VITALS: BP 139/69; PULSE 89; RESP 20; TEMP 36.6; O2SAT 95
[2019-09-19 09:05] VITALS: O2SAT 98
[2019-09-19] MEDS: guaiFENesin ER 600 MG TAB PO (09:19)
[2019-09-19] MEDS: SENNOSIDES 8.6 MG TABLET 17.2 MG PO (09:19)
[2019-09-19] MEDS: polyethylene glycoL 3350 17 GM POWD.PACK PO (09:19)
[2019-09-19] MEDS: MONTELUKAST 10 MG TABLET PO (09:19)
[2019-09-19] MEDS: ENOXAPARIN 40 MG/0.4 ML SYRINGE SUBCUT (09:19)
[2019-09-19] MEDS: dilTIAZem 30 MG TABLET PO (09:22)
[2019-09-19] MEDS: ALBUTEROL/IPRATROPIUM 3 ML AMPUL INH (09:26)
[2019-09-19] MEDS: BUDESONIDE 0.5 MG/2 ML NEB INH (09:26)
[2019-09-19 09:30] VITALS: RESP 20; O2SAT 95
--- NOTE | 2019-09-19 11:56 | PM.DS.1 ---
History of Present Illness History of Present Illness Date Patient Seen: 09/19/19 Chief complaint: shortness of breath, hx of copd Narrative: This is a 78 year chronically ill female who lives alone and developed increasing anxiety and shortness of breath mid day today. She gives a history of ?asthma? without need for home oxygen, usually treated with lorazepam and a prednisone course. Yesterday she apparently felt at baseline with her chronic asthma. She says that Dr. Evans recently rotated her from lorazepam to alprazolam because the lorazepam was no longer helping her panic disorder. She took her 1st dose last night and then slept all night and half the day, waking up very anxious and short of breath at noon today. The paramedics report an 84% saturation on room air which responded to nasal cannula oxygen 2 L up to the low 90s and has persisted. Her chest x-ray shows under exposure and over expansion without any clear infiltrate or typical Covid appearance. She has been quarantined at home for the last 2 months, being very, very careful to avoid any potential exposures with her only visits coming from her daughter and her son-in-law who have been healthy throughout. Her only trip outside the house was 1 trip to the [employer] during the geriatric shopping hour early in the morning, to shop for groceries. She is a former smoker. She also reports falling onto her tailbone when she got up this morning. She denies any other injuries. Discharge Providers Provider Date of admission: 09/16/19 21:26 Discharge Date: 09/19/19 Primary care physician: Will Rincon MD Consults: 09/16/19 21:27 Consult to Physical Therapy Evaluate & Treat Comment: Physician Instructions: Evaluate and Treat 09/18/19 10:35 Consult to Occupational Therapy Evaluate & Treat Comment: Physician Instructions: Evaluate and treat 09/18/19 10:51 Consult to Occupational Therapy Evaluate & Treat Comment: Physician Instructions: Evaluate and treat Discharge provider: Rowan Stevens MD Summary Hospital Course Discharge Diagnosis: 1. Acute hypoxic respiratory failure 2. COPD exacerbation 3. Chronic bronchitis 4. Hypothyroid 5. Paroxysmal atrial fibrillation 6. Anxiety Hospital Course: Patient was admitted to the hospital for acute hypoxic respiratory failure. She was diagnosed with a COPD exacerbation. She was treated with IV steroids, nebulizers, and antibiotics. The patient was fairly hypoxic on admission. She ultimately had a CT angio of her chest which was negative for pulmonary embolus or pneumonia. She continued to make slow but steady progress. She was able to be weaned off her oxygen. Patient was started on Remeron last night as an appetite stimulant and antidepressant. I spoke with her daughter who requested in-home care for her mom in addition to home health visit. Patient was agreeable as well. She made slow but steady progress. She was no longer hypoxic. She was deemed appropriate for discharge home and arrangements were made for discharge. Status at Discharge Cognitive/behavioral status at discharge: oriented Functional status at discharge: independent ambulation Overall status at discharge: patient is back to baseline Time Spent with Patient Time spent: Less than 30 minutes Exam Vital Signs (past 8 hours): - 09/19/19 04:00 09/19/19 08:00 09/19/19 09:05 Temperature 96.9 F L 97.8 F Pulse Rate 80 89 Respiratory Rate 18 20 Blood Pressure 115/69 139/69 Pulse Oximetry 96 95 98 09/19/19 09:30 Temperature Pulse Rate Respiratory Rate 20 Blood Pressure Pulse Oximetry 95 Oxygen Delivery Method Room Air Oxygen Flow Rate 1 Narrative Exam Narrative: Pleasant female in no obvious distress Lungs: Decreased breath sounds with end-expiratory wheezing Cardiac exam: Regular rate and rhythm normal S1-S2 Abdomen: Soft nontender nondistended Extremity no edema Objective Labs Result Diagrams: 09/17/19 04:45 09/17/19 04:45 Discharge Plan Discharge Plan Patient Disposition: Home Health Service Transfer to: [facility] Discharge orders & Medications Prescriptions: New guaifenesin [Mucus Relief ER] 600 mg Tablet Extended Release 12hr 600 mg PO BID Qty: 30 RF: 0 mirtazapine 15 mg Tablet 15 mg PO BEDTIME 30 Days RF: 0 prednisone 20 mg tablet 40 mg PO DAILY Qty: 5 RF: 0 budesonide [Pulmicort] 0.5 mg/2 mL Suspension For Nebulization 0.5 mg INH RTBID 30 Days RF: 0 levofloxacin 750 mg tablet 750 mg PO DAILY Qty: 4 RF: 0 Combivent Respimat 20-100 mcg/actuation mist 1 puff INHALATION QID Qty: 4 RF: 0 Continued diltiazem HCl 60 mg tablet 30 mg PO BID RF: 0 estradiol [Estrace] 1 mg tablet 1 mg PO DAILY RF: 0 montelukast 10 mg tablet 10 mg PO DAILY RF: 0 levothyroxine [Synthroid] 100 mcg tablet 100 mcg PO DAILY RF: 0 levothyroxine [Synthroid] 88 mcg tablet 88 mcg PO QWEEK RF: 0 tramadol 50 mg tablet 50 mg PO DAILY PRN (Reason: Pain (Scale Score 4-6)) RF: 0 albuterol sulfate 2.5 mg /3 mL (0.083 %) Solution For Nebulization 2.5 mg INHALATION Q4H PRN (Reason: Shortness Of Breath) RF: 0 Follow up/Referrals: Will Rincon MD [Primary Care Provider] - Discharge Data Primary Care Provider: Will Rincon Quality VTE Deep Vein Thrombosis/Pulmonary Embolism Present on Admission: No
[2019-09-19 12:00] VITALS: BP 134/42; PULSE 102; RESP 20; TEMP 36.2; O2SAT 96
--- NOTE | 2019-09-19 12:02 | OT.IP.TRT ---
Current Diagnoses Chronic obstructive pulmonary disease with (acute) exacerbation (09/16/19) Occupational Therapy Treatment Note M2 OT-IP Current Condition Start: 09/18/19 13:58 Freq: Status: Active Protocol: Document 09/18/19 13:59 [facility] (Rec: 09/18/19 14:14 [facility] [id number]) Occupational Therapy Current Condition Current Condition Evaluation Date 09/18/19 Treatment Diagnosis Acute hypoxia respiratory failure due to COPD exac. Diagnosis Onset Date 09/16/19 M3 OT- IP Subjective and Pain Start: 09/18/19 13:58 Freq: Status: Active Protocol: Document 09/19/19 12:25 [facility] (Rec: 09/19/19 12:39 [facility] [id number]) OT- Subjective Occupational Therapy Visit Type Type Treatment Note Visit Start Time 11:13 Visit Stop Time 12:02 Total Visit Minutes 49 Occupational Therapy Visit Comments Patient Comments Pt wanting to use the bathroom . Patient/Caregiver Goals To go home. OT Pain Assessment Pain When Pain Assessed At Rest Pain Present Pain Present Denied Pain M4 OT- IP ADL's Start: 09/18/19 13:58 Freq: Status: Active Protocol: Document 09/19/19 12:25 [facility] (Rec: 09/19/19 12:39 [facility] [id number]) OT ADL-Grooming General Evaluation Grooming Ability Standby Assistance Comments OT Grooming Comments SBA at sink. OT ADL-Toileting General Evaluation Toileting Ability Independent Comments OT Toileting Comments with use of FWW to get into and out of the bathroom M5 OT- IP IADL's Start: 09/18/19 13:58 Freq: Status: Active Protocol: Document 09/19/19 12:25 [facility] (Rec: 09/19/19 12:39 [facility] [id number]) OT-Instrumental Activities of Daily Living Medication Management Medication Management Comments Pt's daughter looking at trying to have pt start to use pill organizer. Flexo Operator Flexo Operator Comments At this time, pt aware will need assist as tires easily. Driving Driving Concerns Identified Regarding Safety M6 OT- IP Functional Cognition Start: 09/18/19 13:58 Freq: Status: Active Protocol: Document 09/19/19 12:25 [facility] (Rec: 09/19/19 12:39 [facility] [id number]) Cognitive Factors Limiting Selfcare Function Cognitive Tests SLUMS Pt scored 18/30 which implies cognitive impairments. Pt mostly having difficulty with short term memory tasks and also is hard of hearing. Pt only recall 2/5 objects after time passed, not able to recall 4 digit number backwards, not able to draw the hour hands correctly after time given, and only able to answer 1/4 questions after time passed. Cognitive Comments Cognitive Assessment Comments Pt scored 230 seconds on Cody making Part B which implies severe impairments for executive function, speed of processing, visual attention, and mental flexibility and at this time suggested pt not to drive. Pt states good understanding and stated that her car tags are not even current at this time. M7 OT- IP Mobility and Balance Start: 09/18/19 13:58 Freq: Status: Active Protocol: Document 09/19/19 12:25 [facility] (Rec: 09/19/19 12:39 [facility] [id number]) OT-Transfer Assessment Sit to and From Stand Sit to and from Stand Standby Assistance Transfers Transfer Ability Standby Assistance Technique Transfer Destination Chair,Toilet Transfer Technique Stand Step Pivot Devices Transfer Assistive Devices Gait Belt,Front Wheeled Walker Comments Mobility Comments Pt distant SBA with FWW in the room. OT- Balance Assessment Sitting Balance and Reactions Static Sitting Balance Ability Normal Dynamic Sitting Balance Ability Normal Standing Balance and Reactions Static Standing Balance Ability Good M8 OT- IP Objective Assessments Start: 09/18/19 13:58 Freq: Status: Active Protocol: Document 09/18/19 13:59 [facility] (Rec: 09/18/19 14:14 [facility] [id number]) OT Gross Range of Motion Upper Extremity Range of Motion Assessment Within Functional Limits OT Strength Upper Extremity Strength Assessment Within Functional Limits OT-Muscle Tone Assessment Muscle Tone WNL Yes M9 OT- IP Assessment and Plan Start: 09/18/19 13:58 Freq: Status: Active Protocol: Document 09/19/19 12:25 [facility] (Rec: 09/19/19 12:39 [facility] [id number]) OT Summary Assessment and Plan Potential Rehabilitation Potential Excellent Analytic Complexity at Evaluation Low Summary OT Impairments Functional Cognition, Functional Mobility,Dressing, Bathing,Shower Transfers, Activity Tolerance Progress Towards Goals Progressing Toward Goals Assessment Summary Pt looking to go home today and pt states daughter to clam picker FWW/4WW for her to use. Pt at this time would benefit form increased assist at home and home health. Energy conservation information given to pt. Discharge Recommendations OT Discharge Recommendations Home with Assistance,Home Health Home Equipment Needs FWW versus 4WW, pt's daughter to find for her. Transportation Needs at Discharge Private Vehicle
--- NOTE | 2019-09-19 12:44 | PT.IPTN ---
Current Diagnoses Chronic obstructive pulmonary disease with (acute) exacerbation (09/16/19) Physical Therapy Treatment Note M2 PT-IP Current Condition Start: 09/17/19 10:15 Freq: NEEDED Status: Active Protocol: Document 09/17/19 11:04 AW (Rec: 09/17/19 11:26 AW [id number]) Physical Therapy Current Condition Current Condition Evaluation Date 09/17/19 Treatment Diagnosis COPD exacerbation, difficulty in walking Onset Date 09/16/19 M3 PT-IP Subjective Start: 09/17/19 10:15 Freq: NEEDED Status: Active Protocol: Document 09/19/19 12:02 KS (Rec: 09/19/19 14:04 [place] [id number]) Subjective Physical Therapy Visit Type Type Treatment Note Visit Start Time 12:02 Visit Stop Time 12:44 Total Visit Minutes 42 Number of [employer] SAL[employer] PERSON Visits 2 Physical Therapy Visit Comments Patient Comments Pt willing to work w/ therapy. Therapy Pain Assessment Pain When Pain Assessed During Mobility Pain Present Pain Present Pain Reported Location Right Upper Anterior Thigh Intensity 3 Scale Used Numeric (1 - 10) Description Cramping Pain Behaviors Holding Area Pain Management Techniques Re-positioning M4 PT-IP Mobility and Gait Start: 09/17/19 10:15 Freq: NEEDED Status: Active Protocol: Document 09/19/19 12:02 KS (Rec: 09/19/19 14:04 KS [id number]) PT-Bed Mobility Assessment Rolling Level of Assist Independent Supine to Sit Supine to Sit Independent Sit to Supine Sit to Supine Independent Scooting Scooting to Edge of Bed Independent PT-Transfer Assessment Sit to and From Stand Sit to and from Stand Standby Assistance,Use of Upper Extremities Equipment Transfer Assistive Device Gait Belt,Front Wheeled Walker Transfers Transfer Destination Bed,Chair,Toilet Transfer Technique pt ambulated without AD Transfer Ability Level of Assist Independent,Standby Assistance ,Use of Upper Extremities Comments Mobility Comments Pt was seated in chair upon arrival from therapy. Instructed pt and pt performed ankle pumps, quad sets, and glute sets prior to standing. Pt then stood SBA w/ FWW and performed 3 min weight shifting and marching in place and 10x heel raises before requesting seated rest break. Pt then stood SBA w/o AD and ambulated ~50 ft around room w /o AD. Pt ambulated safely and cautiously CGA. Pt reported that she thinks she has a FWW at home if she needs to use it , but was able to remain balanced throughout ambulation . Pt then ambulated to bathroom and stand<>sit<>stand SBA and performed hand and face washing at sink I. Pt then performed bed mobility I and bridges w/ cues. Pt refused x2 stair training, stating that she has never had a problem performing stairs at home. She then transferred to chair SBA. Provided pt w/ written instructions for LE strengthening exs at home to improve strength and tolerance for activity. Pt left in chair w/ all needs in reach. Gait Assessment Gait Gait Assistance Required: Contact Guard Assist Distance (Feet) 50 Assistive Devices Assistive Device Gait Belt Gait Deviations General Gait Pattern Antalgic,Decreased Stride Length,Decreased Feet Clearance,Flexed Trunk Factors Limiting Gait Function Factors Limiting Gait Function Decreased Activity Tolerance, Decreased Strength,Poor Balance,Respiratory Distress Comments Gait Comments Pt ambulated safely and slowly w/o AD and CGA and denied SOB . Pt stated that her she thinks she has a FWW at home in garage that her daughter can retrieve for her if she needs it. Stair Climbing Assessment Comments Stair Climbing Comments Pt refused stair training today and reported no issues performing stairs at home and utilizes hand rail. PT-Balance Assessment Sitting Balance and Reactions Static Sitting Balance Ability Good Dynamic Sitting Balance Ability Good Standing Balance and Reactions Static Standing Balance Ability Good Dynamic Standing Balance Ability Fair M5 PT-IP Objective Assessments Start: 09/17/19 10:15 Freq: NEEDED Status: Active Protocol: Document 09/17/19 11:04 AW (Rec: 09/17/19 11:26 AW [id number]) Orientation Orientation/Cognition Level of Alertness Alert Orientation Name,Month,Year,Place, Situation Language Function Ability No Deficits Noted Safety Awareness Decreased Safety Awareness Gross Range of Motion Upper Extremity ROM Assessment Within Functional Limits Lower Extremity ROM Assessment Within Functional Limits Strength Lower Extremity Strength Assessment Bilaterally Impaired Hip 4/5 Knee 4-/5 Ankle 4/5 Coordination Assessment Gross Coordination Gross Coordination WNL Sensation Assessment Sensation Gross Sensation WNL M6 PT-IP Treatment Start: 09/17/19 10:15 Freq: NEEDED Status: Active Protocol: Document 09/19/19 12:02 KS (Rec: 09/19/19 14:04 KS [id number]) Physical Therapy Treatment Exercises Exercises Ankle Pumps,Gluteal Sets,Quad Sets,Heel Slides Education Education Provided Safety Other Treatments Other Treatment Performed Bridges, weight shifting, marching in place, heel raises, . Provided written instructions for at home exercises to improve pts strength and tolerance for activity. M7 PT-IP Assessment and Plan Start: 09/17/19 10:15 Freq: NEEDED Status: Active Protocol: Document 09/19/19 12:02 KS (Rec: 09/19/19 14:04 KS [id number]) PT Summary Assessment and Plan Potential Rehabilitation Potential Good Status of Condition at Evaluation Evolving Summary Impairments Strength,Balance,Cognition, Transfers,Gait,Activity Tolerance Assessment Summary Pt is I for all bed mobility and SBA for tranfers, CGA for ambulation w/o AD. Pt was able to complete LE strengthening exercises, balance and pre gait training exercises, bed mobility, and ~50 ft ambulation w/o AD. Refused stair training x2, stating that stairs are no issue for her at home and she uses hand rail. No c/o SOB or labored breathing during treatment today. Provided pt w/ written instructions for at home exercises. Goals Transfer Goal Independent,Cane,Front Wheeled Walker Gait Goal Independent,Cane,Front Wheel Walker Gait Distance 200 Other Goals (goals to be met with LRAD or without AD) - up/down 3 steps with R rail ascending SBA Days to Meet Goals 5 Frequency of Treatment Frequency Of Treatment Once a Day Treatment Plan Physical Therapy Treatment Plan Transfer Training,Gait Training,Therapeutic Exercise, Balance Retraining,Discharge Planning Other Recommendations and Next Treatment ambulation with FWW or SPC as Focus appropriate, increase gait distance and stairs. Recommendations To Nursing Amount of Assist Needed Standby Assistance,1 Person Assist Discharge Recommendations PT Discharge Recommendations Home with Assistance,Home Health Transportation Needs at Discharge Private Vehicle
[2019-09-19] MEDS: BISACODYL 10 MG SUPP PR (13:22)
[2019-09-19] MEDS: FLEETS ENEMA 1 EACH PR (14:19)
--- NOTE | 2019-09-19 15:10 | CM.DPNOTE ---
DC Note: DC order in place for home w/HH. Met w/patient at bedside this morning during multidisciplinary rounds. Patient eager to return home and remains agreeable to birdie JOSHI upon DC. faxed completed and signed F2F, ADI order, DC Summary and therapy notes to birdie JOSHI. P: DC home w/supportive family via pov w/ birdie JOSHI RN/PT/OT to f/u TIA Rosenthal
--- NOTE | 2019-09-20 09:11 | CM.DPC ---
DCP cont: Received a call from Rafita at [facility] stating the fax he received yesterday regarding this patient was cut off. He needs me to re-fax the F2F, 09/17 progress note and 09/18 discharge summary. I did this and received a confirmation. Fax confirmation scanned in. Melissa Maguire, Care Injection Molding Supervisor
== END 2019-09-19 15:45 | disposition home health service (06) | DRG 190 ==
LOC: ED 21:24 → AC 21:26
PROVIDERS: Admitting Provider Family Medicine; Emergency Provider Emergency Medicine; PCP Family Medicine; Referring Provider Emergency Medicine; Visit Provider Family Medicine
DX: J44.1 Chronic obstructive pulmonary disease with (acute) exacerbation (principal); J96.01 Acute respiratory failure with hypoxia; F41.0 Panic disorder [episodic paroxysmal anxiety]; I48.0 Paroxysmal atrial fibrillation; E03.9 Hypothyroidism, unspecified; I10 Essential (primary) hypertension; Z03.818 Encounter for observation for suspected exposure to other biological agents ruled out
CPT/HCPCS: 36415; 71045; 71275; 80048; 80053; 84145; 84484; 85025; 85379; 85610; 85730; 87635; 93005; 93010; 94640; 94760; 94762; 96374; 97110; 97116; 97129; 97161; 97165; 97530; 97535; 99285; J1650; J1956; J2930; J7613; Q9967

== ENCOUNTER → 2020-08-18 10:27 | Outpatient (CLI) | payer MEDICARE, OTHER, SELFPAY ==
[2019-09-17 14:24] VITALS: BMI 25.7
[2020-08-18 13:50] LABS: COVID19 -Nasal RAPID Negative (Negative)
== END ==
PROVIDERS: PCP Internal Medicine; Visit Provider Surgery
DX: Z20.822 Contact with and (suspected) exposure to COVID-19 (principal); Z01.812 Encounter for preprocedural laboratory examination
CPT/HCPCS: 87635

== ENCOUNTER 2020-08-19 06:35 | Day surgery (SDC) | payer MEDICARE, OTHER, SELFPAY ==
[2019-09-17 14:24] VITALS: BMI 25.7
[2020-08-19] VITALS (8 sets, daily range): BP systolic 96–122; BP diastolic 50–85; PULSE 78–101; RESP 10–24; TEMP 36.2–36.6; O2SAT 94–99; BMI 22.6
[2020-08-19] MEDS: LACTATED RINGERS 1,000 ML 100 ML IV (07:31)
--- NOTE | 2020-08-19 07:33 | PM.HP.1 ---
History of Present Illness History of Present Illness Date Patient Seen: 08/19/20 Time Patient Seen: 07:33 Chief complaint: SDC Narrative: 79-year-old female with a biopsy-proven stage IV ovarian cancer referred for Port-A-Cath placement. She has been evaluated by Oncology and recommended to proceed with neoadjuvant therapy. No history of prior indwelling venous catheters. She is not on anticoagulation. Patient History Medical History Acute respiratory failure with hypoxia (09/16/19) Anemia Anxiety Asthma COPD (chronic obstructive pulmonary disease) Headache Hypertension Hypothyroidism (acquired) Memory dysfunction Surgical History H/O hysterectomy with oophorectomy H/O thyroidectomy Family & Social History Social History: household members none Tobacco & Substance use: Smoking Status Former smoker alcohol intake current alcohol intake frequency holiday/special occasion Substance Use Type does not use Meds Home Medications and Allergies Home Medications Medication Instructions Recorded Confirmed Type diltiazem HCl 30 mg PO DAILY 09/17/19 08/19/20 History levothyroxine [Synthroid] 88 mcg PO DAILY 09/17/19 08/19/20 History levothyroxine [Synthroid] 100 mcg PO DAILY 09/17/19 08/19/20 History montelukast 10 mg PO DAILY 09/17/19 08/19/20 History albuterol sulfate 2.5 mg INHALATION Q4H PRN 09/18/19 08/19/20 History alprazolam 0.5 mg PO TID PRN 08/12/20 08/19/20 History hydrocodone-acetaminophen 1 tab PO Q4-6H PRN 08/12/20 08/19/20 History ondansetron 4 mg PO Q6H PRN 08/12/20 08/19/20 History sennosides-docusate sodium 1 tab-cap PO BEDTIME 08/12/20 08/19/20 History [Senokot-S] sertraline 25 mg PO DAILY 08/12/20 08/19/20 History morphine 30 mg PO Q8H #100 tab 08/13/20 08/15/20 Rx albuterol sulfate [Ventolin HFA] 1 inh INHALATION QID PRN 08/19/20 08/19/20 History guaifenesin [Mucus Relief ER] 600 mg PO BID PRN 08/19/20 08/19/20 History Allergies Allergy/AdvReac Type Severity Reaction Status Date / Time adhesive tape Allergy Severe skin welt, Verified 09/17/19 07:42 bruising, and tears codeine [CODEINE] Allergy Severe Nausea Verified 09/17/19 07:42 Sulfa (Sulfonamide Allergy Severe Nausea Verified 09/17/19 07:42 Antibiotics) [SULFA (SULFONAMIDE ANTIBIOTICS)] amoxicillin [AMOXICILLIN] Allergy Intermediate GI UPSET Verified 09/17/19 07:42 Review of Systems Review of Systems ROS: Yes unobtainable due to mental condition (Dementia) Exam Vital Signs (past 8 hours): - 08/19/20 07:06 Temperature 97.2 F L Pulse Rate 101 H Respiratory Rate 24 Blood Pressure 122/85 Pulse Oximetry 96 Oxygen Delivery Method Room Air Narrative Exam Narrative: GENERAL-well developed elderly woman, no acute distress HEENT-no scleral icterus, hearing intact NECK-no JVD, trachea midline CVS- regular rate, no peripheral edema RESP-unlabored respiratory effort, no audible wheezing GI-soft, nondistended MSK-no cyanosis or clubbing, extremities without deformity SKIN-warm, dry NEURO-alert and grossly oriented but has difficulty understanding details PYSCH-Appropriate mood and affect Assessment & Plan Assessment & Plan narrative: 79-year-old female with stage IV ovarian cancer here for Port-A-Cath placement. Technical details of the operation were discussed with both the patient as well as her daughter. Operative risks including bleeding infection damage to surrounding structures pneumothorax embolism mechanical device failure were discussed. Her and her daughter's questions have been answered and they are in agreement with this plan. Daughter cosigned surgical consent.
[2020-08-19] MEDS: CLINDAMYCIN 900 MG/50 ML PIGGYBACK 50 MG IV (07:45)
--- NOTE | 2020-08-19 08:05 | SUR.OPER ---
Supine on padded OR bed, head on pillow, arms secured on padded arm boards at <90 degrees abduction, legs uncrossed, safety belt at thigh, tape over blanket over lower legs.
[2020-08-19] MEDS: HEPARIN 5,000 UNIT, SODIUM CHLORIDE 0.9% 50 ML IV (08:10)
[2020-08-19] MEDS: BUPIVACAINE 0.25% (PF) VIAL 30 ML INJ (08:10)
--- NOTE | 2020-08-19 08:37 | PM.OP.1 ---
Operative Date/Time/Diagnoses Date of procedure: 08/19/20 Time of procedure: 08:38 Pre-op diagnosis: Ovarian cancer Post-op diagnosis: same Procedure & Clinicians Procedure: Port-A-Cath placement Same procedure as scheduled: Yes Indications: Stage IV ovarian cancer Surgeon: Lance Aguirre Anesthesia Type: General Operative Notes Findings: Tip of the catheter within the SVC. Port flushes and draws easily Specimen(s): none sent Estimated Blood Loss (mL): 20 Procedure in detail: Patient was brought to the operating room placed supine on table. Bilateral lower extremity compressive devices were applied. General anesthesia was induced and he was intubated with an LMA. He was then prepped and draped in usual sterile fashion. Time-out was performed ensure the correct patient procedure necessary equipment within the operating room. He received 2 g of Ancef prior to incision. Under ultrasound guidance the right internal jugular vein was accessed under direct visualization. The guidewire was then threaded through the needle. Its placement was then confirmed using fluoroscopy. The dilator was then placed over the guidewire. The catheter was then inserted through the sheath. Placement was again confirmed with fluoroscopy. A subcutaneous pocket was made in the right chest wall. The tunneler device was used to move the catheter from the neck to the chest pocket. The port was attached after it was primed with heparined saline. The port was tested to ensure that it flushed easily and had good blood return. The port was then secured to the underlying fascia using interupted 0 Prolene suture. Hemostasis was achieved. The wound was irrigated with sterile saline. The subcutaneous tissues were reapproximated with the 3 0 Vicryl and then skin closed with 4-0 Monocryl. The skin was sealed with Dermabond. Patient tolerated procedure well. The sponge and instrument count at the end operation was correct. Patient emerged from general anesthesia was extubated and taken to the postoperative care unit in stable condition Complications: none Post-operative Condition: stable Disposition: same day surgery
--- NOTE | 2020-08-19 09:00 | DI.RAD.S_ITS ---
PROCEDURE: XR CHEST 1V INDICATIONS: PORT A CATH RIGHT TECHNIQUE: One view of the chest was acquired. COMPARISON: [facility], CR, XR CHEST 1V, 09/16/2019, 19:16. [facility], CR, XR CHEST 1V, 09/09/2019, 21:00. FINDINGS: Surgical changes and devices: Port-A-Cath from right-sided approach extends into the expected position of the superior vena cava, taking a cephalad course initially prior to caudad angulation. Lungs and pleura: Lungs are clear. No pleural effusions or pneumothorax. Mediastinum: Mediastinal contours appear normal. Heart size is normal. Bones and chest wall: No suspicious bony lesions. Overlying soft tissues appear unremarkable. IMPRESSION: No pneumothorax after Port-A-Cath placement. The Port-A-Cath course is initially cephalad directed, than curving caudad with tip at the expected position of the distal SVC. Dictated by: Jairo Yo M.D. on 08/19/2020 at 9:41 Approved by: Jairo Yo M.D. on 08/19/2020 at 9:42
[2020-08-19] MEDS: HYDROCODONE/ACET 5/325 TABLET 1 TAB PO (09:18)
--- NOTE | 2020-08-19 10:11 | SUR.PHASEII ---
Assumed care from Lois, daughter at bedside, dressing to l neck and chest c/d/i. Bandaid changed prior to discharge per pt request- smaller one placed. d/c instructions discussed with both pt and daughter, both voiced an understanding. Pt left when ready and left in stable condition.
== END 2020-08-19 10:10 | disposition home or self-care (01) ==
PROVIDERS: PCP Internal Medicine; Referring Provider Internal Medicine; Visit Provider Surgery
PROC: (CPT 36561; principal; 2020-08-19 07:45)
DX: C56.9 Malignant neoplasm of unspecified ovary (principal); J44.9 Chronic obstructive pulmonary disease, unspecified
CPT/HCPCS: 36561; 71045; 76000; C1788; J1644; J2250; J2704; J3010

== ENCOUNTER 2020-08-20 00:37 | Inpatient (IN) | payer MEDICARE, OTHER, SELFPAY ==
[2019-09-17 14:24] VITALS: BMI 25.7
[2020-08-20] VITALS (16 sets, daily range): BP systolic 106–138; BP diastolic 52–63; PULSE 71–118; RESP 16–24; TEMP 35.8–37; O2SAT 87–97; BMI 24.5; BMI 23.8
--- NOTE | 2020-08-20 00:22 | DI.RAD.S_ITS ---
PROCEDURE: XR CHEST 1V INDICATIONS: vomiting, recent portocath TECHNIQUE: One view of the chest was acquired. COMPARISON: [facility], CR, XR CHEST 1V, 08/19/2020, 8:42. FINDINGS: Surgical changes and devices: Right chest wall Port-A-Cath is stable. Lungs and pleura: Patchy opacities noted the medial aspect of the lung bases bilaterally likely represent atelectasis. Ill-defined focal opacity noted in the right mid lung which may represent summation artifact, however lung mass cannot be excluded by plain film radiograph. No pleural effusions or pneumothorax. Mediastinum: Mediastinal contours appear normal. Heart size is normal. Retrocardiac hiatal hernia. Bones and chest wall: No suspicious bony lesions. Overlying soft tissues appear unremarkable. IMPRESSION: 1. Probable bibasilar atelectasis. 2. Subtle focal opacity in the right mid lung which could represent a lung nodule or summation artifact. Recommend CT scan of the chest when clinically feasible for definitive characterization. Dictated by: Maira Cesar MD, PhD on 08/20/2020 at 8:32 Approved by: Maira Cesar MD, PhD on 08/20/2020 at 8:34
--- NOTE | 2020-08-20 00:42 | ED.GIBLEED ---
HPI - GI Bleed General Chief complaint: GI Bleed Stated complaint: GI Bleed Time Seen by Provider: 08/20/20 00:40 Source: patient and EMS Mode of arrival: EMS Limitations: no limitations History of Present Illness HPI Narrative: 79-year-old female former smoker with history of COPD and stage IV ovarian cancer presents by EMS for evaluation of weakness, fatigue, shortness of breath and coffee-ground emesis. She was at the hospital earlier today and had a Port-A-Cath placed which had been ordered by her oncologist for the treatment of her ovarian cancer. She denies any history of blood thinners, liver disease or alcohol abuse. She has some generalized pain but nothing significant per her own admission. She just feels terrible. She denies any history of GI bleed. On arrival EMS found her with a initial pulse ox in the mid 80s, they put her on 4 L and over the course of their trip she improved to the upper 90s. Daughter (VIOLA) has been contacted. She does not want her mother to have CPR or intubation. MD complaint: coffee ground emesis Onset (ago): hour(s) Severity: moderate Relieving factors: none Exacerbating factors: none Associated symptoms: nausea, vomiting, loss of appetite, malaise and shortness of breath Related Data Home Medications Medication Instructions Recorded Confirmed diltiazem HCl 60 mg PO DAILY 09/17/19 08/20/20 levothyroxine [Synthroid] 88 mcg PO WEEKLY 09/17/19 08/20/20 levothyroxine [Synthroid] 100 mcg PO DAILY 09/17/19 08/20/20 montelukast 10 mg PO DAILY 09/17/19 08/20/20 albuterol sulfate 2.5 mg INHALATION Q4H PRN 09/18/19 08/20/20 alprazolam 0.5 mg PO TID PRN 08/12/20 08/20/20 hydrocodone-acetaminophen 1 tab PO Q4-6H PRN 08/12/20 08/20/20 ondansetron 4 mg PO Q6H PRN 08/12/20 08/20/20 sennosides-docusate sodium 1 tab-cap PO BEDTIME 08/12/20 08/20/20 [Senokot-S] sertraline 25 mg PO DAILY 08/12/20 08/20/20 albuterol sulfate [Ventolin HFA] 1 inh INHALATION QID PRN 08/19/20 08/20/20 guaifenesin [Mucus Relief ER] 600 mg PO BID PRN 08/19/20 08/20/20 Previous Rx's Medication Instructions Recorded morphine 30 mg PO Q8H #100 tab 08/13/20 Allergies Allergy/AdvReac Type Severity Reaction Status Date / Time adhesive tape Allergy Severe skin welt, Verified 09/17/19 07:42 bruising, and tears codeine [CODEINE] Allergy Severe Nausea Verified 09/17/19 07:42 Sulfa (Sulfonamide Allergy Severe Nausea Verified 09/17/19 07:42 Antibiotics) [SULFA (SULFONAMIDE ANTIBIOTICS)] amoxicillin [AMOXICILLIN] Allergy Intermediate GI UPSET Verified 09/17/19 07:42 Review of Systems Constitutional Constitutional: Denies chills, Reports fatigue, Denies fever(s), Denies frequent falls, Denies lethargy and Reports weakness Eyes Eyes: Denies change in vision, Denies eye discharge, Denies irritation and Denies loss of vision ENT Ears, Nose, Mouth, and Throat: Denies change in voice, Denies dizziness, Denies neck pain, Denies sore throat and Denies throat swelling Cardiovascular Cardiovascular: Denies chest pain, Denies irregular heart rhythm, Denies lightheadedness, Denies palpitations, Reports dyspnea, Reports dyspnea on exertion and Denies orthopnea Respiratory Respiratory: Denies cough, Reports dyspnea, Reports dyspnea on exertion and Denies wheezing Gastrointestinal Gastrointestinal: Denies abdominal pain, Denies change in bowel habits, Reports coffee ground emesis, Denies diarrhea, Reports nausea and Reports vomiting Musculoskeletal Musculoskeletal: Denies neck pain and Denies numbness Integumentary/Breasts Skin/Breast: Denies pruritus, Denies erythema, Denies rash and Denies wounds Neurologic Neurologic: Denies behavioral changes, Denies confusion, Denies dizziness, Denies frequent falls, Denies loss of vision, Denies numbness and Reports weakness Psychiatric Psychiatric: Denies anxiety, Denies behavioral changes, Denies confusion, Denies depression, Denies homicidal ideation and Denies suicidal ideation Endocrine Endocrine: Reports fatigue, Denies flushing and Denies palpitations Hematologic/Lymphatic Hematologic/Lymphatic: Denies easy bruising Allergic/Immunologic Allergic/Immunologic: Denies urticaria, Denies throat swelling and Denies wheezing Patient History Medical History Acute respiratory failure with hypoxia (09/16/19) Anemia Anxiety Asthma COPD (chronic obstructive pulmonary disease) Headache Hypertension Hypothyroidism (acquired) Memory dysfunction Surgical History H/O hysterectomy with oophorectomy H/O thyroidectomy Social History household members: none Smoking Status: Former smoker alcohol intake: current Smoking Status: Former smoker alcohol intake frequency: holidays/special occasions only Substance Use Type: does not use Exam Narrative Exam Narrative: GENERAL: [79] year old patient appears stated age. Frail and elderly. Ill-appearing, dried dark vomit on her chin HEAD: Atraumatic. Normocephalic. EYES: Pupils equal round and reactive. Extraocular motions intact. No scleral icterus. No injection or drainage. ENT: Dry mucous membranes. Nose without bleeding, purulent drainage. Throat without erythema, tonsillar hypertrophy or exudate. Airway patent. NECK: Trachea midline. Non tender CARDIOVASCULAR: Regular rate and rhythm without murmurs, gallops, or rubs. Port-A-Cath bandaged and right anterior chest without any bleeding or other drainage RESPIRATORY: Clear to auscultation. Breath sounds equal bilaterally. No wheezes, rales, or rhonchi. GASTROINTESTINAL: Abdomen soft, mild widespread tenderness, nondistended. EXTREMITIES: No edema or joint tenderness. BACK: Nontender without deformity or crepitance. No flank tenderness. NEURO: Awake, aware of person and place, not date or circumstance. 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 Aguirre regarding upper GI bleed, happy to play a role in consultation Consultation #2: call to Dr. Puga, happy to consult if needed, stenting can be difficult when hydro is due to external masses. Consultation #3: hospitalist happy to accept Vital Signs Vital signs: Vital Signs - 8 hr 08/20/20 01:02 08/20/20 01:50 08/20/20 02:03 Temperature 98.6 F Pulse Rate 104 H 107 H 104 H Respiratory Rate 19 Blood Pressure 106/54 L Pulse Oximetry 90 L 90 L 87 L 08/20/20 02:23 08/20/20 02:30 08/20/20 03:00 Temperature Pulse Rate 103 H 102 H 118 H Respiratory Rate Blood Pressure 133/60 136/62 138/61 Pulse Oximetry 93 91 92 08/20/20 03:30 Temperature Pulse Rate 114 H Respiratory Rate Blood Pressure 134/59 L Pulse Oximetry 92 MDM - GI Bleed Lab Data Result diagrams: 08/20/20 00:50 08/20/20 00:50 Labs: Lab Results 08/20/20 08/20/20 08/20/20 Range/Units 00:50 00:50 00:50 WBC 15.7 H (4.5-11.0) X10^3/uL RBC 3.92 L (4.0-5.2) X10^6/uL Hgb 11.7 L (12.0-16.0) g/dL Hct 36.5 (36-46) % MCV 93.1 (80-100) fL MCH 29.9 (26-34) PG MCHC 32.1 (30-36) % RDW 16.9 H (11.6-14.8) % Plt Count 446 H (150-400) X10^3/uL Neut % (Auto) 88.7 H (50-75) % Lymph % (Auto) 2.9 L (25-40) % [place] % (Auto) 7.9 (3-14) % Eos % (Auto) 0.0 L (2-4) % Baso % (Auto) 0.5 (0-2) % Neut # (Auto) 70227 H (4854-1479) /uL Lymph # (Auto) 500 L (3068-9979) /uL [place] # (Auto) 1200 H (0-900) /uL Eos # (Auto) 0 (0-450) /uL Baso # (Auto) 100 (0-100) /uL PT 14.6 H (10.1-12.7) SECONDS INR 1.3 (0.9-1.3) Sodium 131 L (137-145) mmol/L Potassium 5.3 H (3.4-5.1) mmol/L Chloride 96 L (98-107) mmol/L Carbon Dioxide 30 (22-32) mmol/L BUN 44 H (7-17) mg/dL Creatinine 1.10 H (0.52-1.04) mg/dL Estimated GFR 47.8 L (>60) mL/min BUN/Creatinine Ratio 40.0 H (6-22) Glucose 114 H (80-110) mg/dL Lactate (0.7-2.1) mmol/L Calcium 8.8 (8.4-10.2) mg/dL Magnesium 2.0 (1.6-2.3) mg/dL Total Bilirubin 0.6 (0.2-1.3) mg/dL AST 58 H (14-36) IU/L ALT 27 (<35) IU/L Alkaline Phosphatase 107 (38-126) U/L Total Protein 6.4 (6.3-8.2) g/dL Albumin 3.1 L (3.5-5.0) g/dL Globulin 3.3 (1.7-4.1) g/dL Albumin/Globulin Ratio 0.9 L (1.0-2.8) SARS-CoV-2 (PCR) (Negative) Blood Type Antibody Screen 08/20/20 08/20/20 08/20/20 Range/Units 00:50 00:50 01:10 WBC (4.5-11.0) X10^3/uL RBC (4.0-5.2) X10^6/uL Hgb (12.0-16.0) g/dL Hct (36-46) % MCV (80-100) fL MCH (26-34) PG MCHC (30-36) % RDW (11.6-14.8) % Plt Count (150-400) X10^3/uL Neut % (Auto) (50-75) % Lymph % (Auto) (25-40) % [place] % (Auto) (3-14) % Eos % (Auto) (2-4) % Baso % (Auto) (0-2) % Neut # (Auto) (2937-8565) /uL Lymph # (Auto) (4981-1399) /uL [place] # (Auto) (0-900) /uL Eos # (Auto) (0-450) /uL Baso # (Auto) (0-100) /uL PT (10.1-12.7) SECONDS INR (0.9-1.3) Sodium (137-145) mmol/L Potassium (3.4-5.1) mmol/L Chloride (98-107) mmol/L Carbon Dioxide (22-32) mmol/L BUN (7-17) mg/dL Creatinine (0.52-1.04) mg/dL Estimated GFR (>60) mL/min BUN/Creatinine Ratio (6-22) Glucose (80-110) mg/dL Lactate 2.1 (0.7-2.1) mmol/L Calcium (8.4-10.2) mg/dL Magnesium (1.6-2.3) mg/dL Total Bilirubin (0.2-1.3) mg/dL AST (14-36) IU/L ALT (<35) IU/L Alkaline Phosphatase (38-126) U/L Total Protein (6.3-8.2) g/dL Albumin (3.5-5.0) g/dL Globulin (1.7-4.1) g/dL Albumin/Globulin Ratio (1.0-2.8) SARS-CoV-2 (PCR) Negative (Negative) Blood Type A Positive Antibody Screen Negative 08/20/20 Range/Units 03:18 WBC (4.5-11.0) X10^3/uL RBC (4.0-5.2) X10^6/uL Hgb (12.0-16.0) g/dL Hct (36-46) % MCV (80-100) fL MCH (26-34) PG MCHC (30-36) % RDW (11.6-14.8) % Plt Count (150-400) X10^3/uL Neut % (Auto) (50-75) % Lymph % (Auto) (25-40) % [place] % (Auto) (3-14) % Eos % (Auto) (2-4) % Baso % (Auto) (0-2) % Neut # (Auto) (7643-7679) /uL Lymph # (Auto) (7477-6412) /uL [place] # (Auto) (0-900) /uL Eos # (Auto) (0-450) /uL Baso # (Auto) (0-100) /uL PT (10.1-12.7) SECONDS INR (0.9-1.3) Sodium (137-145) mmol/L Potassium (3.4-5.1) mmol/L Chloride (98-107) mmol/L Carbon Dioxide (22-32) mmol/L BUN (7-17) mg/dL Creatinine (0.52-1.04) mg/dL Estimated GFR (>60) mL/min BUN/Creatinine Ratio (6-22) Glucose (80-110) mg/dL Lactate 1.3 (0.7-2.1) mmol/L Calcium (8.4-10.2) mg/dL Magnesium (1.6-2.3) mg/dL Total Bilirubin (0.2-1.3) mg/dL AST (14-36) IU/L ALT (<35) IU/L Alkaline Phosphatase (38-126) U/L Total Protein (6.3-8.2) g/dL Albumin (3.5-5.0) g/dL Globulin (1.7-4.1) g/dL Albumin/Globulin Ratio (1.0-2.8) SARS-CoV-2 (PCR) (Negative) Blood Type Antibody Screen Imaging Data CT scan - chest: Radiologist's Impression: Large heterogeneously enhancing pelvic mass with lymphadenopathy and free fluid. Retroperitoneal lymphadenopathy with mass effect on right ureter and severe collecting system dilatation and functional delay. Multiple liver Mets and extensive periportal lymphadenopathy. Large paraesophageal hiatal hernia MDM Narrative Medical decision making narrative: Patient is very ill at baseline with a highly aggressive ovarian cancer prior to any palliative chemotherapy. She presents with persistent nausea, vomiting, upper GI bleed, fatigue, weakness and not eating or drinking anything over the day. POA states patient is DNR and focus is to be comfort though she has not officially on comfort measures. I did have a lengthy discussion with her about the severity of her illness, the aggressive nature of her ovarian cancer and the complexity that today's findings add to the big picture. Daughter understands the severity of the situation and will be here in the morning Critical Care Time Critical Care Time Critical Care Time: Yes Total Critical Care Time: 30 Attestation: The high probability of a clinically significant, sudden or life threatening deterioration of the [GI/CV] system(s) required my full and direct attention, intervention and personal management. The aggregate critical care time was [30] minutes. This time is in addition to time spent performing reported procedures but includes the following: [x] Data Review and interpretation [x] Patient assessment and monitoring of vital signs [x] Documentation [x] Medication orders and management Discharge Plan Departure Patient Disposition: Admitted As Inpatient Clinical Impression: Acute dehydration GI bleed Qualifiers: GI bleed type/associated pathology: unspecified gastrointestinal hemorrhage type Qualified Code(s): K92.2 - Gastrointestinal hemorrhage, unspecified Ovarian cancer Qualifiers: Laterality: unspecified laterality Qualified Code(s): C56.9 - Malignant neoplasm of unspecified ovary Acute kidney failure Qualifiers: Acute renal failure type: unspecified Qualified Code(s): N17.9 - Acute kidney failure, unspecified Admit Date/Time: 08/20/20 04:31 Admit Provider: Angie Hurst
[2020-08-20] MEDS: PANTOPRAZOLE 40 MG VIAL IV ×3 (00:55→21:08)
[2020-08-20 01:01] LABS: Add Manual Diff / Slide Review NO; Basophils Absolute Auto 100 /uL (0-100); Basophils Percent Auto 0.5 % (0-2); Eosinophils Absolute Auto 0 /uL (0-450); Hematocrit 36.5 % (36-46); Hemoglobin 11.7 g/dL (12.0-16.0); Lymphocytes Absolute Auto 500 /uL (1100-4500); Lymphocytes Percent Auto 2.9 % (25-40); Mean Corpuscular HGB Conc 32.1 % (30-36); Mean Corpuscular Hemoglobin 29.9 PG (26-34); Mean Corpuscular Volume 93.1 fL (80-100); Monocytes Absolute Auto 1200 /uL (0-900); Monocytes Percent Auto 7.9 % (3-14); Neutrophils Absolute Auto 13900 /uL (1500-7000); Neutrophils Percent Auto 88.7 % (50-75); Platelet Count 446 X10^3/uL (150-400); Red Blood Cell Count 3.92 X10^6/uL (4.0-5.2); Red Cell Distribution Width 16.9 % (11.6-14.8); White Blood Cell Count 15.7 X10^3/uL (4.5-11.0)
[2020-08-20 01:11] LABS: INR 1.3 (0.9-1.3); Prothrombin Time 14.6 SECONDS (10.1-12.7)
[2020-08-20 01:14] LABS: Alanine Aminotransferase 27 IU/L (<35); Albumin 3.1 g/dL (3.5-5.0); Albumin Globulin Ratio 0.9 (1.0-2.8); Alkaline Phosphatase 107 U/L (38-126); Aspartate Aminotransferase 58 IU/L (14-36); Bilirubin Total 0.6 mg/dL (0.2-1.3); Blood Urea Nitrogen 44 mg/dL (7-17); Calcium 8.8 mg/dL (8.4-10.2); Carbon Dioxide 30 mmol/L (22-32); Chloride 96 mmol/L (98-107); Estimated Glomerular Filt Rate 47.8 mL/min (>60); Globulin 3.3 g/dL (1.7-4.1); Glucose 114 mg/dL (80-110); HEMOLYSIS 33 (0-50); Sodium 131 mmol/L (137-145); Total Protein 6.4 g/dL (6.3-8.2)
[2020-08-20 01:15] LABS: Lactate (Lactic Acid) 2.1 mmol/L (0.7-2.1)
[2020-08-20 01:18] LABS: Potassium 5.3 mmol/L (3.4-5.1)
--- NOTE | 2020-08-20 01:36 | DI.CT.S_ITS ---
PROCEDURE: CT CHEST ABD PEL W CON INDICATIONS: cough, short of breath, hematemesis, lung opacity on CXR TECHNIQUE: After the administration of intravenous contrast, 5 mm thick sections acquired from the lung apices to the symphysis. 5 mm coronal and sagittal reformats were performed, with additional 7 mm MIP reformats through the lungs. For radiation dose reduction, the following was used: automated exposure control, adjustment of mA and/or kV according to patient size. COMPARISON: [facility], CT, CT HEAD/BRAIN WO CON, 08/02/2019, 18:54. [facility], CT, CT HEAD/BRAIN WO CON, 02/13/2019, 15:11. [facility], CR, XR CHEST 1V, 08/19/2020, 8:42. [facility], CR, XR CHEST 1V, 08/20/2020, 0:26. [facility], CT, CT ANGIO CHEST PE PROTOCOL, 09/18/2019, 11:15. FINDINGS: Image quality: Excellent. CHEST: Lungs and pleura: Bilateral pleural effusions are present, [id number] on the right and trace on the left. Right basilar atelectasis. Bilateral patchy ground-glass and nodular infiltrates, consistent with pneumonia. There is a 0.8 cm nodule in the left lung base anteriorly. Central and peripheral airways appear patent and normal in caliber. Mediastinum: Heart size is normal. No pericardial effusion. There is a 2.5 cm prevascular lymph node, and a 1.3 cm subcarinal lymph node. A 2.1 x 3.8 cm left supraclavicular lymph node is identified. Thoracic aorta and central pulmonary arteries are normal in size. Esophagus is normal in caliber. Large hiatal hernia. The esophagus is mildly distended and filled with fluid. There is a 1.9 cm left periesophageal lymph node and a 2.1 cm azagoesophageal recess lymph node. Chest wall: No axillary or supraclavicular adenopathy by size criteria. Thyroid gland is not well seen. There is a Port-A-Cath in the right anterior chest. ABDOMEN: Solid organs: Demonstrates diffuse hepatic steatosis. There are multiple hepatic masses compatible with metastases. For example, a 2.1 cm mass is seen in segment 4. There is a 2.0 cm mass in the segment 5 posteriorly (series 2, image 54), and a 2.2 cm mass in segment 8 (series 2 image 46). Gallbladder contains calcified gallstones. There is no intrahepatic biliary dilation. Common bile duct is mildly dilated measuring 8.4 mm. Pancreas enhances normally. Spleen is normal in size and enhancement. No adrenal nodules. There is severe right hydronephrosis and hydroureter. Obstruction of right kidney is at level of distal right ureter. Left kidney appears normal. Peritoneum and bowel: There are scattered colonic diverticula. No CT findings to suggest acute diverticulitis. There is mild diffuse thickening of the sigmoid colon. Bowel loops demonstrate normal caliber. Trace amount of free fluid. No free air. Nodes and vessels: There is marked retroperitoneal lymphadenopathy. Large para-aortic and aortocaval lymph nodes are present. For example, a 6.0 x 8.3 cm periportal ian mass is identified (series 2 image 51). There is a conglomerate ian mass surrounding the aorta measuring 4.1 x 7.6 cm, exerting is mass effect to the left renal vein and left renal artery. There is also enlarged mesenteric lymph nodes. For example a 1.5 cm mesenteric lymph node is noted in the left abdomen (series 2, image 68). There is right common and external iliac lymphadenopathy. For example, there is a 2.9 x 3.6 cm right external iliac lymph node (image 102). Aorta is normal in size with moderate atherosclerosis. There is compression of the IVC by the conglomerate ian mass. The right common and external iliac vein are not well seen. There is central hypodensity in the distal right external iliac vein suspicious for thrombosis. Miscellaneous: No ventral hernias. PELVIS: Genitourinary: Bladder wall thickness is normal. There is a large heterogeneous pelvic mass measuring 9.3 cm AP, 8.7 cm transverse and 9.6 cm cephalocaudal. Miscellaneous: No inguinal hernias or adenopathy. Bones: No suspicious bony lesions. No vertebral body compression fractures. Scoliosis. Severe degenerative changes in lumbar spine. IMPRESSION: 1. Bilateral ground-glass and nodular infiltrates are present consistent with pneumonia. Superimposed pulmonary metastatic disease cannot be excluded. 2. Bilateral pleural effusions, small moderate on the right and trace on the left. 3. Mediastinal and supraclavicular lymphadenopathy consistent with metastases. 4. A large pelvic mass measuring 9.3 x 8.7 x 9.6 cm consistent with neoplasm, most likely uterine overlying in origin. 5. Extensive retroperitoneal lymphadenopathy, right common and external iliac lymphadenopathy and mesenteric lymphadenopathy, consistent with metastasis. 6. Multiple hepatic masses consistent with liver metastases. 7. Marked right hydronephrosis and hydroureter secondary to obstruction of the distal right ureter by the large pelvic mass. 8. Possible thrombosis of the right external iliac vein. 9. There is diffuse colonic wall thickening involving the sigmoid colon suggesting mild colitis. 10. Diverticulosis without acute diverticulitis. 11. Cholelithiasis. 12. Large hiatal hernia. The esophagus is mildly distended and filled with fluid. No significant discrepancy with the metrology specialist radiology preliminary report. Dictated by: Vladimir Guerrero M.D. on 08/20/2020 at 7:36 Approved by: Vladimir Guerrero M.D. on 08/20/2020 at 8:28
[2020-08-20 02:06] LABS: COVID19 - ADMIT (NP swab/PCR) Negative (Negative)
[2020-08-20 02:57] LABS: Reflexed Lactate in 2 Hours Y
--- NOTE | 2020-08-20 03:11 | PC.NURSE ---
Critical result called in from [facility] notified of results. Call back number [phone].
--- NOTE | 2020-08-20 03:27 | PC.NURSE ---
RN gave update to patient's daughter Meme.
[2020-08-20 03:37] LABS: Lactate 2HR (Lactic Acid Rflx) 1.3 mmol/L (0.7-2.1)
--- NOTE | 2020-08-20 05:27 | PM.HP.1 ---
History of Present Illness History of Present Illness Date Patient Seen: 08/20/20 Time Patient Seen: 05:00 Chief complaint: GI Bleed Narrative: Katelyn Maldonado is an unfortunate 79-year-old female with a recent diagnosis of stage IV ovarian cancer now found to be widely metastatic to the lungs, multisite lymphadenopathy, retroperitoneal lymph adenopathy, and lymph adenopathy affecting the right ureter, COPD, hypertension, and asthma and hypothyroidism was seen yesterday in the day surgery center for placement of a port. When she returned home, he started to throw up dark red to black vomitus. She states that she feels ?lousy? all over, she is very nauseous, and states she can not really be very specific about all of her symptoms. Per the ED provider he spoke to Meme her daughter and VIOLA and agree that the patient needed to be admitted for rehydration, symptom control and to address palliative care issues on this admission. Per the ED provider the focus was to be on comfort however the patient is not officially on comfort care measures. Patient is unable to provide a meaningful review of systems she seems to be pretty distressed during my visit. Chest x-ray done in the ED indicated bibasilar atelectasis or infiltrates with the right greater than left, right pleural effusion with other findings recommending CT evaluation. CT that was done indicated perivascular and left supraclavicular lymphadenopathy, multilobe were reticular nodular opacities, differential including metastatic disease, bacterial, fungal or viral infection, and bilateral pleural effusions. Significant findings in the abdomen and pelvis includes cholelithiasis, betty aortic lymphadenopathy encasing the right ureter with slightly diminished right nephrogram and severe right collecting system dilatation. There is a 7 x 7 x 8.9 cm pelvic mass adjacent to the urinary bladder. Patient was administered IV Protonix and fluids were started on the patient. Patient is afebrile, blood pressure 109/52, heart rate 71, respiratory rate 24, oxygen saturation 96% on 2 L, she weighs 63 kg with a BMI of 25.7. WBC is elevated at 15.7 RBC 3.92, hemoglobin 11.7, hematocrit 36.5, and a platelet count of 446. Sodium is 131, potassium 5.3, chloride 96, bicarb 30, BUN 44, creatinine 1.10 with a GFR of 47.8 glucose is 114, lactate is 1.3, magnesium, 2.0, AST is elevated at 58 remaining liver enzymes are within normal limits, procalcitonin is pending, COVID-19 PCR is negative. Patient History Medical History Acute respiratory failure with hypoxia (09/16/19) Anemia Anxiety Asthma COPD (chronic obstructive pulmonary disease) Headache Hypertension Hypothyroidism (acquired) Memory dysfunction Surgical History H/O hysterectomy with oophorectomy H/O thyroidectomy Family & Social History Social History: household members none Safety & Behavioral: Feels Safe in Current Yes Environment Tobacco & Substance use: Smoking Status Former smoker alcohol intake current alcohol intake frequency holiday/special occasion Substance Use Type does not use Meds Home Medications and Allergies Home Medications Medication Instructions Recorded Confirmed Type diltiazem HCl 60 mg PO DAILY 09/17/19 08/20/20 History levothyroxine [Synthroid] 88 mcg PO WEEKLY 09/17/19 08/20/20 History levothyroxine [Synthroid] 100 mcg PO DAILY 09/17/19 08/20/20 History montelukast 10 mg PO DAILY 09/17/19 08/20/20 History albuterol sulfate 2.5 mg INHALATION Q4H PRN 09/18/19 08/20/20 History alprazolam 0.5 mg PO TID PRN 08/12/20 08/20/20 History hydrocodone-acetaminophen 1 tab PO Q4-6H PRN 08/12/20 08/20/20 History ondansetron 4 mg PO Q6H PRN 08/12/20 08/20/20 History sennosides-docusate sodium 1 tab-cap PO BEDTIME 08/12/20 08/20/20 History [Senokot-S] sertraline 25 mg PO DAILY 08/12/20 08/20/20 History morphine 30 mg PO Q8H #100 tab 08/13/20 08/20/20 Rx albuterol sulfate [Ventolin HFA] 1 inh INHALATION QID PRN 08/19/20 08/20/20 History guaifenesin [Mucus Relief ER] 600 mg PO BID PRN 08/19/20 08/20/20 History Allergies Allergy/AdvReac Type Severity Reaction Status Date / Time adhesive tape Allergy Severe skin welt, Verified 09/17/19 07:42 bruising, and tears codeine [CODEINE] Allergy Severe Nausea Verified 09/17/19 07:42 Sulfa (Sulfonamide Allergy Severe Nausea Verified 09/17/19 07:42 Antibiotics) [SULFA (SULFONAMIDE ANTIBIOTICS)] amoxicillin [AMOXICILLIN] Allergy Intermediate GI UPSET Verified 09/17/19 07:42 Review of Systems Review of Systems ROS: Yes unobtainable due to mental status Exam Vital Signs (past 8 hours): - 08/20/20 01:02 08/20/20 01:50 08/20/20 02:03 Temperature 98.6 F Pulse Rate 104 H 107 H 104 H Respiratory Rate 19 Blood Pressure 106/54 L Pulse Oximetry 90 L 90 L 87 L 08/20/20 02:23 08/20/20 02:30 08/20/20 03:00 Temperature Pulse Rate 103 H 102 H 118 H Respiratory Rate Blood Pressure 133/60 136/62 138/61 Pulse Oximetry 93 91 92 08/20/20 03:30 08/20/20 04:00 08/20/20 04:30 Temperature Pulse Rate 114 H 105 H 107 H Respiratory Rate Blood Pressure 134/59 L 133/60 133/63 Pulse Oximetry 92 94 93 08/20/20 04:45 Temperature Pulse Rate 89 Respiratory Rate 20 Blood Pressure 133/63 Pulse Oximetry 94 Oxygen Delivery Method Nasal Cannula Oxygen Flow Rate 2 Narrative Exam Narrative: Gen: Alert, oriented, ill appearing 79 y.o. female, very pale HEENT: normocephalic, atraumatic, conjunctiva clear, sclera non-icteric, oral mucosa pink and moist Neck: supple, full ROM, no JVD, trachea is midline Resp: Lungs CTA, non-labored breathing CV: RRR, no murmur or rubs Abd: soft, non-tender, hypoactive BTs Skin: no lesions or rashes, dry and intact Neuro: Alert and oriented X 4 w/no focal deficits. Speech clear and coherent. Extremities: moves all 4 extremities, is ambulatory, negative Kamaljit?s sign Psyche: flat affect. Objective Labs Result Diagrams: 08/20/20 00:50 08/20/20 00:50 Labs: Laboratory Results - last 24 hr 08/20/20 08/20/20 08/20/20 00:50 00:50 00:50 WBC 15.7 H RBC 3.92 L Hgb 11.7 L Hct 36.5 MCV 93.1 MCH 29.9 MCHC 32.1 RDW 16.9 H Plt Count 446 H Neut % (Auto) 88.7 H Lymph % (Auto) 2.9 L [place] % (Auto) 7.9 Eos % (Auto) 0.0 L Baso % (Auto) 0.5 Neut # (Auto) 14338 H Lymph # (Auto) 500 L [place] # (Auto) 1200 H Eos # (Auto) 0 Baso # (Auto) 100 PT 14.6 H INR 1.3 Sodium 131 L Potassium 5.3 H Chloride 96 L Carbon Dioxide 30 BUN 44 H Creatinine 1.10 H Estimated GFR 47.8 L BUN/Creatinine Ratio 40.0 H Glucose 114 H Lactate Calcium 8.8 Magnesium 2.0 Total Bilirubin 0.6 AST 58 H ALT 27 Alkaline Phosphatase 107 Total Protein 6.4 Albumin 3.1 L Globulin 3.3 Albumin/Globulin Ratio 0.9 L SARS-CoV-2 (PCR) Blood Type Antibody Screen 08/20/20 08/20/20 08/20/20 00:50 00:50 01:10 WBC RBC Hgb Hct MCV MCH MCHC RDW Plt Count Neut % (Auto) Lymph % (Auto) [place] % (Auto) Eos % (Auto) Baso % (Auto) Neut # (Auto) Lymph # (Auto) [place] # (Auto) Eos # (Auto) Baso # (Auto) PT INR Sodium Potassium Chloride Carbon Dioxide BUN Creatinine Estimated GFR BUN/Creatinine Ratio Glucose Lactate 2.1 Calcium Magnesium Total Bilirubin AST ALT Alkaline Phosphatase Total Protein Albumin Globulin Albumin/Globulin Ratio SARS-CoV-2 (PCR) Negative Blood Type A Positive Antibody Screen Negative 08/20/20 03:18 WBC RBC Hgb Hct MCV MCH MCHC RDW Plt Count Neut % (Auto) Lymph % (Auto) [place] % (Auto) Eos % (Auto) Baso % (Auto) Neut # (Auto) Lymph # (Auto) [place] # (Auto) Eos # (Auto) Baso # (Auto) PT INR Sodium Potassium Chloride Carbon Dioxide BUN Creatinine Estimated GFR BUN/Creatinine Ratio Glucose Lactate 1.3 Calcium Magnesium Total Bilirubin AST ALT Alkaline Phosphatase Total Protein Albumin Globulin Albumin/Globulin Ratio SARS-CoV-2 (PCR) Blood Type Antibody Screen Assessment & Plan Assessment & Plan narrative: Katelyn Maldonado will be admitted for palliative care consult in the setting of a rapid and new onset diagnosis of an agressive ovarian cancer, management of an upper GI bleed, possible uretheral obstruction pending decisions made regarding palliative care or hospice. Upper GI bleed, acute and present on admission -She will receive IV protonix 40 mg bid -Dr. Aguirre, General surgery consulting, management/intervention depends on decisions on goals of care -IV ondansatron for nausea/vomiting -H and H is stable, if continued Recently diagnosed Stage 4 ovarian cancer, present on admission -Palliative care consult requested of Em Maynard today -Care will be focused on symptomatic care, but officially is not comfort care measures only Hyperkalemia, acute, present on admission -Potassium is 5.3, slightly elevated, likely due to dehydration from vomiting -IVF to address dehydration Hypothyroidism, chronic -Oral levothyroxine is being held -Consider IV levothyroxine if NPO status will be for a protracted period Essential hypertension, chronic and normotensive at this time -oral diltiazem being held due to NPO status VTE prophylaxis: Wells risk score: 2 Bilateral SCDs. Pharmacological DVT prophylaxis is not indicated due to acute GI bleeding. Consults: Em Maynard Palliative Care, Dr. Aguirre, General surgery, consult and involvement is appreciated. Patient is admitted under inpatient status with expected length of stay greater than 2 midnights due to severity of presenting symptoms, risk of adverse event, and complexity of treatment plan. FEN: IV NS at 125/hour, NPO, BMP and magnesium in the am. Dispo: unknown at this time Code Status: DNR indicated to me by ED provider after his discussion with patient's daughter and DPOA. COVID-19 COVID-19 status: Negative Result date/Date tested (Pos, Neg/Pending): 08/20/20 Scores Wells' Criteria for PE Clinical signs and symptoms of DVT: No PE is #1 Dx or equally likely: No Heart rate > 100: No Immobilization at least 3 days or surg in previous 4 weeks: No History of PE or DVT: No Hemoptysis: Yes Malignancy w/Treatment within 6 months or palliative: Yes Wells' PE Score total: 2 Quality MIPS - Admit I confirm the patient?s Advance Care Plan is present, Code status is documented, Surrogate decision maker is in patient?s record [If Yes, STOP here]: Yes
[2020-08-20] MEDS: SODIUM CHLORIDE 0.9% 1,000 ML 100 ML IV (05:31)
[2020-08-20] MEDS: ONDANSETRON 4 MG/2 ML INJ IV ×3 (05:57→16:57)
[2020-08-20] MEDS: MORPHINE 2 MG/ML INJ IV ×3 (05:57→16:57)
[2020-08-20 06:30] LABS: Procalcitonin 0.69 ng/mL (<0.5)
--- NOTE | 2020-08-20 06:35 | PC.ADMIT ---
[address] Admission Note: Pt arrived to unit stable with no apparent signs of cardiovascular or respiratory distress. Satting >92% on 2L NC. Pt shows mild confusion, unable to accurately state situation or exact date. Pt calm and cooperative. Tele placed, SCDs on, IVF runnning NS 125/hr. Morphine 2 mg given for generalized pain 11/25 and zofran given for nausea- pt tolerated well. Pt able to make needs known. The patient,Katelyn Maldonado,79 y/o, was given written information regarding hospital policies, unit procedures and contact persons. Patient's smoking status: Former smoker. Vital Signs - 8 hr 08/20/20 01:02 08/20/20 01:50 08/20/20 02:03 Temperature 98.6 F Pulse Rate 104 H 107 H 104 H Respiratory Rate 19 Blood Pressure 106/54 L Pulse Oximetry 90 L 90 L 87 L 08/20/20 02:23 08/20/20 02:30 08/20/20 03:00 Temperature Pulse Rate 103 H 102 H 118 H Respiratory Rate Blood Pressure 133/60 136/62 138/61 Pulse Oximetry 93 91 92 08/20/20 03:30 08/20/20 04:00 08/20/20 04:30 Temperature Pulse Rate 114 H 105 H 107 H Respiratory Rate Blood Pressure 134/59 L 133/60 133/63 Pulse Oximetry 92 94 93 08/20/20 04:45 08/20/20 05:14 Temperature 97.1 F L Pulse Rate 89 71 Respiratory Rate 20 24 Blood Pressure 133/63 109/52 L Pulse Oximetry 94 96
[2020-08-20] MEDS: PROCHLORPERAZINE 10 MG/2 ML VIAL IV (08:42)
--- NOTE | 2020-08-20 09:44 | PM.CN ---
History of Present Illness Consult details Date Patient Seen: 08/20/20 Time Patient Seen: 09:44 Chief complaint: GI Bleed Narrative: 79-year-old female with widely metastatic ovarian cancer admitted to the hospital for pneumonia, GI bleed and acute kidney injury following a Port-A-Cath placement yesterday. She is in the intensive care unit afebrile normotensive with low-grade tachycardia Meds Home Medications and Allergies Home Medications Medication Instructions Recorded Confirmed Type diltiazem HCl 60 mg PO DAILY 09/17/19 08/20/20 History levothyroxine [Synthroid] 88 mcg PO WEEKLY 09/17/19 08/20/20 History levothyroxine [Synthroid] 100 mcg PO DAILY 09/17/19 08/20/20 History montelukast 10 mg PO DAILY 09/17/19 08/20/20 History albuterol sulfate 2.5 mg INHALATION Q4H PRN 09/18/19 08/20/20 History alprazolam 0.5 mg PO TID PRN 08/12/20 08/20/20 History hydrocodone-acetaminophen 1 tab PO Q4-6H PRN 08/12/20 08/20/20 History ondansetron 4 mg PO Q6H PRN 08/12/20 08/20/20 History sennosides-docusate sodium 1 tab-cap PO BEDTIME 08/12/20 08/20/20 History [Senokot-S] sertraline 25 mg PO DAILY 08/12/20 08/20/20 History morphine 30 mg PO Q8H #100 tab 08/13/20 08/20/20 Rx albuterol sulfate [Ventolin HFA] 1 inh INHALATION QID PRN 08/19/20 08/20/20 History guaifenesin [Mucus Relief ER] 600 mg PO BID PRN 08/19/20 08/20/20 History Allergies Allergy/AdvReac Type Severity Reaction Status Date / Time adhesive tape Allergy Severe skin welt, Verified 09/17/19 07:42 bruising, and tears codeine [CODEINE] Allergy Severe Nausea Verified 09/17/19 07:42 Sulfa (Sulfonamide Allergy Severe Nausea Verified 09/17/19 07:42 Antibiotics) [SULFA (SULFONAMIDE ANTIBIOTICS)] amoxicillin [AMOXICILLIN] Allergy Intermediate GI UPSET Verified 06/01/20 07:42 Exam Vital Signs (past 8 hours): - 08/20/20 01:50 08/20/20 02:03 08/20/20 02:23 Temperature Pulse Rate 107 H 104 H 103 H Respiratory Rate Blood Pressure 133/60 Pulse Oximetry 90 L 87 L 93 08/20/20 02:30 08/20/20 03:00 08/20/20 03:30 Temperature Pulse Rate 102 H 118 H 114 H Respiratory Rate Blood Pressure 136/62 138/61 134/59 L Pulse Oximetry 91 92 92 08/20/20 04:00 08/20/20 04:30 08/20/20 04:45 Temperature Pulse Rate 105 H 107 H 89 Respiratory Rate 20 Blood Pressure 133/60 133/63 133/63 Pulse Oximetry 94 93 94 08/20/20 05:14 08/20/20 08:42 08/20/20 09:00 Temperature 97.1 F L 97.0 F L Pulse Rate 71 118 H 101 H Respiratory Rate 24 16 Blood Pressure 109/52 L 117/60 Pulse Oximetry 96 97 Oxygen Delivery Method Nasal Cannula Oxygen Flow Rate 0 Objective Labs Result Diagrams: 08/20/20 00:50 08/20/20 00:50 Labs: Laboratory Results - last 24 hr 08/20/20 08/20/20 08/20/20 00:50 00:50 00:50 WBC 15.7 H RBC 3.92 L Hgb 11.7 L Hct 36.5 MCV 93.1 MCH 29.9 MCHC 32.1 RDW 16.9 H Plt Count 446 H Neut % (Auto) 88.7 H Lymph % (Auto) 2.9 L [place] % (Auto) 7.9 Eos % (Auto) 0.0 L Baso % (Auto) 0.5 Neut # (Auto) 25558 H Lymph # (Auto) 500 L [place] # (Auto) 1200 H Eos # (Auto) 0 Baso # (Auto) 100 PT 14.6 H INR 1.3 Sodium 131 L Potassium 5.3 H Chloride 96 L Carbon Dioxide 30 BUN 44 H Creatinine 1.10 H Estimated GFR 47.8 L BUN/Creatinine Ratio 40.0 H Glucose 114 H Lactate Calcium 8.8 Magnesium 2.0 Total Bilirubin 0.6 AST 58 H ALT 27 Alkaline Phosphatase 107 Total Protein 6.4 Albumin 3.1 L Globulin 3.3 Albumin/Globulin Ratio 0.9 L Procalcitonin Nasal Screen MRSA (PCR) SARS-CoV-2 (PCR) Blood Type Antibody Screen 08/20/20 08/20/20 08/20/20 00:50 00:50 00:50 WBC RBC Hgb Hct MCV MCH MCHC RDW Plt Count Neut % (Auto) Lymph % (Auto) [place] % (Auto) Eos % (Auto) Baso % (Auto) Neut # (Auto) Lymph # (Auto) [place] # (Auto) Eos # (Auto) Baso # (Auto) PT INR Sodium Potassium Chloride Carbon Dioxide BUN Creatinine Estimated GFR BUN/Creatinine Ratio Glucose Lactate 2.1 Calcium Magnesium Total Bilirubin AST ALT Alkaline Phosphatase Total Protein Albumin Globulin Albumin/Globulin Ratio Procalcitonin 0.69 H Nasal Screen MRSA (PCR) SARS-CoV-2 (PCR) Blood Type A Positive Antibody Screen Negative 08/20/20 08/20/20 08/20/20 01:10 03:18 05:00 WBC RBC Hgb Hct MCV MCH MCHC RDW Plt Count Neut % (Auto) Lymph % (Auto) [place] % (Auto) Eos % (Auto) Baso % (Auto) Neut # (Auto) Lymph # (Auto) [place] # (Auto) Eos # (Auto) Baso # (Auto) PT INR Sodium Potassium Chloride Carbon Dioxide BUN Creatinine Estimated GFR BUN/Creatinine Ratio Glucose Lactate 1.3 Calcium Magnesium Total Bilirubin AST ALT Alkaline Phosphatase Total Protein Albumin Globulin Albumin/Globulin Ratio Procalcitonin Nasal Screen MRSA (PCR) Negative for mrsa SARS-CoV-2 (PCR) Negative Blood Type Antibody Screen
--- NOTE | 2020-08-20 10:33 | PC.NURSE ---
Addendum entered by Seema Reyes R.N. 08/20/20 15:17: Tolerating increased morphine with better pain control, tele d/c'd. IVF infusing. Resting comfortably at present. Addendum entered by Seema Reyes R.N. 08/20/20 12:41: Pt has had continued nausea and emesis, dark coffee ground appearance, medicated per emar and increased morphine. Sips of water ok, per Dr Stevens. Assist to reposition PRN. Original Note: Am shift Pt is resting quietly, with occasional facial grimace noted. Reporting nausea, and dark brown liquid emesis to bag. Obtained orders for compazine. Given, and Pt updated on POC. Daughter should be in this afternoon and palliative care consult with Muriel Maynard may happen as early as this afternoon. IVF infusing. Morphine for pain control. BA active. Pt resting at present.
--- NOTE | 2020-08-20 12:45 | CM.DANOTE ---
Patient is an 79 year old female who was admitted on 08/20/20 today for GI Bleed. Pt has [facility] and [employer] for insurance and her PCP is Dr. Robert Evans. EMR was reviewed. Per MD, pt DNR and with recent new dx of stage 4 ovarian CA that has now metastasized to her lungs and lymphs. Per Surgeon, pt just had Port placed yesterday for palliative chemo through [facility] Oncologist Dr. Monroe and then developed G.I. Bleed but currently no plan for medical intervention. ordered Pall Care Consult to determine POC. SW contacted pt's Dtr/DPHANNAH Winkleryl and discussed Pall Care Consult and she is agreeable and can be bedside around 1530 today to meet with Em Maynard for Pall Care discussion. Dtr states she is extremely tired as she hasn't slept since pt's Port was placed so she will sleep today and be bedside by [id number]. Pt has been residing alone in [place] but with local Dtr nearby for assist. EVE contacted Pall Care Em Maynard and updated on orders for Palliative and time Dtr can be present and MD cell phone for further discussion prior to bedside discussion with pt and Dtr. Per RN, pt given medication and likely will sleep most of the morning/early afternoon. Plan: SW to follow closely after Pall Care Consult this afternoon at 1530 towards determining POC and possible need for Hospice referral and/or other d/c planning and coordination. TIA [place] Discharge Planning/Care Management Advanced directive, confirm from FAMILY Start: 08/20/20 06:24 Freq: Q24H Status: Active Protocol: Document 08/20/20 06:24 MW (Rec: 08/20/20 06:30 MW [id number]) Advance Directive, confirm on record Time 05:00 Person contacted Patient Copy received No CM Discharge Assessment Start: 08/20/20 12:03 Freq: Status: Active Protocol: Document 08/20/20 12:07 BF (Rec: 08/20/20 12:45 BF [id number]) Discharge Planning Assessment Assigned Bore Miner Operator TIA Alaniz DPHANNAH/Assigned Designee Name Dtr Meme Demetrio Contact Information [phone] Advance Directives? Yes Advance Directives on File No History Provided By Patient,Family Member,Medical Record Has Patient been admitted in last 30 No days? Prior Living Arrangements House Household Members none Type of transporation used prior to Relies on Others admit Independent with ADL's Yes Is patient alert and oriented? Yes: mostly but currently exhausted Needs Assistance With Managing Medications,Home Chores / Shopping Caregiver for Another No DME Already Rented / Owned FWW / Walker Comment Patient stated that she does not always use. Comment Pending Pall Care Consult to determine POC Barriers to Discharge Yes Comment Has supportive daughter that lives nearby. POC pending Comfort vs tx Discharge Plan Home Transportation Arrangement Daughter Additional Comment Pending Pall Care Consult to determine possible Hospice/ comfort care Whiteboard Updated in Patient Room with Yes name and ext. # of Bore Miner Operator Review Status In Process Please Provide Date Initial DC 08/20/20 Assessment Was Performed Next Review Type Continued Stay Review
[2020-08-20] MEDS: MORPHINE 2 MG/ML INJ 4 MG IV (13:50)
[2020-08-20] MEDS: SODIUM CHLORIDE 0.9% 1,000 ML 125 ML IV ×2 (13:52→21:09)
[2020-08-20 14:28] LABS: Appearance Urine UA CLEAR; Bilirubin Urine UA NEGATIVE (NEGATIVE); Color Urine UA YELLOW; Glucose Urine UA TRACE g/dL (Negative); Ketones Urine UA NEGATIVE (NEGATIVE); Leukocyte Esterase Urine UA 1+ (NEGATIVE); Nitrite Urine UA NEGATIVE (Negative); Occult Blood Urine UA TRACE-LYSED (Negative); Protein Urine UA TRACE (Negative); Urobilinogen Urine UA 0.2 E.U./dL (0.2)
[2020-08-20 14:44] LABS: RBC Urine 0-1/HPF (0-5/HPF); WBC Urine 10-30/HPF (0-5/HPF); pH Urine UA 5.5 (4.5-8.0)
[2020-08-20 14:45] LABS: Bacteria Urine Few (2-10); Culture Indicated Urine Specimen Cultured; Hyaline Casts Urine 0-1/LPF; Squamous Epithelial Cell Urine 1-5 /HPF (0-5/HPF)
[2020-08-20] MEDS: FLEETS ENEMA 1 EACH PR (18:46)
--- NOTE | 2020-08-20 20:46 | P.CONS_ITS ---
History of Present Illness Consult details Date Patient Seen: 08/20/20 Time Patient Seen: 20:46 Chief complaint: GI Bleed Narrative: 79-year-old female with metastatic ovarian cancer admitted to the hospital for upper GI bleed and acute kidney injury. Yesterday she underwent a Port-A-Cath placement. Last night she developed hematemesis and presented to the emergency room. She was normotensive mildly tachycardic WBC 16, hematocrit 37 creatinine 1.1 from baseline of 0.5. This morning she has had no further nausea or hematemesis. She is receiving IV Protonix and fluid resuscitation. She is confused and has difficulty answering questions Meds Home Medications and Allergies Home Medications Medication Instructions Recorded Confirmed Type diltiazem HCl 60 mg PO DAILY 09/17/19 08/20/20 History levothyroxine [Synthroid] 88 mcg PO WEEKLY 09/17/19 08/20/20 History levothyroxine [Synthroid] 100 mcg PO DAILY 09/17/19 08/20/20 History montelukast 10 mg PO DAILY 09/17/19 08/20/20 History albuterol sulfate 2.5 mg INHALATION Q4H PRN 09/18/19 08/20/20 History alprazolam 0.5 mg PO TID PRN 08/12/20 08/20/20 History hydrocodone-acetaminophen 1 tab PO Q4-6H PRN 08/12/20 08/20/20 History ondansetron 4 mg PO Q6H PRN 08/12/20 08/20/20 History sennosides-docusate sodium 1 tab-cap PO BEDTIME 08/12/20 08/20/20 History [Senokot-S] sertraline 25 mg PO DAILY 08/12/20 08/20/20 History morphine 30 mg PO Q8H #100 tab 08/13/20 08/20/20 Rx albuterol sulfate [Ventolin HFA] 1 inh INHALATION QID PRN 08/19/20 08/20/20 History guaifenesin [Mucus Relief ER] 600 mg PO BID PRN 08/19/20 08/20/20 History Allergies Allergy/AdvReac Type Severity Reaction Status Date / Time adhesive tape Allergy Severe skin welt, Verified 09/17/19 07:42 bruising, and tears codeine [CODEINE] Allergy Severe Nausea Verified 09/17/19 07:42 Sulfa (Sulfonamide Allergy Severe Nausea Verified 09/17/19 07:42 Antibiotics) [SULFA (SULFONAMIDE ANTIBIOTICS)] amoxicillin [AMOXICILLIN] Allergy Intermediate GI UPSET Verified 09/17/19 07:42 Review of Systems Review of Systems ROS: Yes unobtainable due to mental status Exam Vital Signs (past 8 hours): - 08/20/20 12:59 08/20/20 16:14 Temperature 97.5 F L 96.5 F L Pulse Rate 105 H 102 H Respiratory Rate 18 17 Blood Pressure 119/61 109/56 L Pulse Oximetry 92 93 Oxygen Delivery Method Room Air Oxygen Flow Rate 0 Narrative Exam Narrative: GENERAL-thin elderly woman, ill-appearing HEENT-no scleral icterus, hearing intact NECK-no JVD, trachea midline CVS- regular rate, no peripheral edema RESP-unlabored respiratory effort, no audible wheezing GI-soft, nontender nondistended MSK-no cyanosis or clubbing, extremities without deformity SKIN-warm, dry NEURO-alert but disoriented Objective Labs Result Diagrams: 08/20/20 00:50 08/20/20 00:50 Labs: Laboratory Results - last 24 hr 08/20/20 08/20/20 08/20/20 00:50 00:50 00:50 WBC 15.7 H RBC 3.92 L Hgb 11.7 L Hct 36.5 MCV 93.1 MCH 29.9 MCHC 32.1 RDW 16.9 H Plt Count 446 H Neut % (Auto) 88.7 H Lymph % (Auto) 2.9 L [place] % (Auto) 7.9 Eos % (Auto) 0.0 L Baso % (Auto) 0.5 Neut # (Auto) 42527 H Lymph # (Auto) 500 L [place] # (Auto) 1200 H Eos # (Auto) 0 Baso # (Auto) 100 PT 14.6 H INR 1.3 Sodium 131 L Potassium 5.3 H Chloride 96 L Carbon Dioxide 30 BUN 44 H Creatinine 1.10 H Estimated GFR 47.8 L BUN/Creatinine Ratio 40.0 H Glucose 114 H Lactate Calcium 8.8 Magnesium 2.0 Total Bilirubin 0.6 AST 58 H ALT 27 Alkaline Phosphatase 107 Total Protein 6.4 Albumin 3.1 L Globulin 3.3 Albumin/Globulin Ratio 0.9 L Procalcitonin Urine Color Urine Appearance Urine pH Ur Specific [place] Urine Protein Urine Glucose (UA) Urine Ketones Urine Occult Blood Urine Nitrate Urine Bilirubin Urine Urobilinogen Ur Leukocyte Esterase Urine RBC Urine WBC Ur Squamous Epith Cells Urine Bacteria Hyaline Casts Ur Culture Indicated? Nasal Screen MRSA (PCR) SARS-CoV-2 (PCR) Blood Type Antibody Screen 08/20/20 08/20/20 08/20/20 00:50 00:50 00:50 WBC RBC Hgb Hct MCV MCH MCHC RDW Plt Count Neut % (Auto) Lymph % (Auto) [place] % (Auto) Eos % (Auto) Baso % (Auto) Neut # (Auto) Lymph # (Auto) [place] # (Auto) Eos # (Auto) Baso # (Auto) PT INR Sodium Potassium Chloride Carbon Dioxide BUN Creatinine Estimated GFR BUN/Creatinine Ratio Glucose Lactate 2.1 Calcium Magnesium Total Bilirubin AST ALT Alkaline Phosphatase Total Protein Albumin Globulin Albumin/Globulin Ratio Procalcitonin 0.69 H Urine Color Urine Appearance Urine pH Ur Specific [place] Urine Protein Urine Glucose (UA) Urine Ketones Urine Occult Blood Urine Nitrate Urine Bilirubin Urine Urobilinogen Ur Leukocyte Esterase Urine RBC Urine WBC Ur Squamous Epith Cells Urine Bacteria Hyaline Casts Ur Culture Indicated? Nasal Screen MRSA (PCR) SARS-CoV-2 (PCR) Blood Type A Positive Antibody Screen Negative 08/20/20 08/20/20 08/20/20 01:10 03:18 05:00 WBC RBC Hgb Hct MCV MCH MCHC RDW Plt Count Neut % (Auto) Lymph % (Auto) [place] % (Auto) Eos % (Auto) Baso % (Auto) Neut # (Auto) Lymph # (Auto) [place] # (Auto) Eos # (Auto) Baso # (Auto) PT INR Sodium Potassium Chloride Carbon Dioxide BUN Creatinine Estimated GFR BUN/Creatinine Ratio Glucose Lactate 1.3 Calcium Magnesium Total Bilirubin AST ALT Alkaline Phosphatase Total Protein Albumin Globulin Albumin/Globulin Ratio Procalcitonin Urine Color Urine Appearance Urine pH Ur Specific [place] Urine Protein Urine Glucose (UA) Urine Ketones Urine Occult Blood Urine Nitrate Urine Bilirubin Urine Urobilinogen Ur Leukocyte Esterase Urine RBC Urine WBC Ur Squamous Epith Cells Urine Bacteria Hyaline Casts Ur Culture Indicated? Nasal Screen MRSA (PCR) Negative for mrsa SARS-CoV-2 (PCR) Negative Blood Type Antibody Screen 08/20/20 13:42 WBC RBC Hgb Hct MCV MCH MCHC RDW Plt Count Neut % (Auto) Lymph % (Auto) [place] % (Auto) Eos % (Auto) Baso % (Auto) Neut # (Auto) Lymph # (Auto) [place] # (Auto) Eos # (Auto) Baso # (Auto) PT INR Sodium Potassium Chloride Carbon Dioxide BUN Creatinine Estimated GFR BUN/Creatinine Ratio Glucose Lactate Calcium Magnesium Total Bilirubin AST ALT Alkaline Phosphatase Total Protein Albumin Globulin Albumin/Globulin Ratio Procalcitonin Urine Color Yellow Urine Appearance Clear Urine pH 5.5 Ur Specific [place] 1.010 Urine Protein Trace H Urine Glucose (UA) Trace H Urine Ketones Negative Urine Occult Blood Trace-lysed Urine Nitrate Negative Urine Bilirubin Negative Urine Urobilinogen 0.2 Ur Leukocyte Esterase 1+ H Urine RBC 0-1/hpf Urine WBC 10-30/hpf H Ur Squamous Epith Cells 1-5 /hpf Urine Bacteria Few (2-10) H Hyaline Casts 0-1/lpf Ur Culture Indicated? Specimen cultured Nasal Screen MRSA (PCR) SARS-CoV-2 (PCR) Blood Type Antibody Screen Assessment & Plan Assessment & Plan narrative: 79-year-old female poor performance status with widely metastatic ovarian cancer admitted to the hospital for upper GI bleed and acute kidney injury. Hemodynamically stable no further hematemesis since admission hematocrit is 37 receiving IV Protonix. Long discussion with the patient's daughter this morning regarding her overall state of health and her current hospital admission. Goals of care need to be discussed, they have a conference with Em iverson to discuss palliative care later today. I told the daughter that in terms of the upper GI bleed I would not plan for any endoscopy intervention at this point as she is hemodynamically stable but extremely frail. Once goals of care have been established if she continues to display ongoing signs of upper GI bleed and if they wish to proceed esophagoduodenoscopy under general anesthesia could be discussed.
[2020-08-21 00:30] VITALS: BP 111/62; PULSE 108; RESP 20; TEMP 36.2; O2SAT 91
[2020-08-21 04:54] LABS: Add Manual Diff / Slide Review NO; Basophils Absolute Auto 0 /uL (0-100); Basophils Percent Auto 0.3 % (0-2); Eosinophils Absolute Auto 100 /uL (0-450); Eosinophils Percent Auto 1.7 % (2-4); Hematocrit 28.9 % (36-46); Hemoglobin 9.4 g/dL (12.0-16.0); Lymphocytes Absolute Auto 500 /uL (1100-4500); Lymphocytes Percent Auto 11.8 % (25-40); Mean Corpuscular HGB Conc 32.6 % (30-36); Mean Corpuscular Hemoglobin 30.4 PG (26-34); Mean Corpuscular Volume 93.2 fL (80-100); Monocytes Absolute Auto 700 /uL (0-900); Monocytes Percent Auto 14.6 % (3-14); Neutrophils Absolute Auto 3200 /uL (1500-7000); Neutrophils Percent Auto 71.6 % (50-75); Platelet Count 283 X10^3/uL (150-400); Red Cell Distribution Width 16.7 % (11.6-14.8); White Blood Cell Count 4.5 X10^3/uL (4.5-11.0)
[2020-08-21 05:15] LABS: BUN Creatinine Ratio 49.6 (6-22); Blood Urea Nitrogen 59 mg/dL (7-17); Calcium 8.3 mg/dL (8.4-10.2); Carbon Dioxide 27 mmol/L (22-32); Chloride 103 mmol/L (98-107); Estimated Glomerular Filt Rate 43.6 mL/min (>60); Glucose 89 mg/dL (80-110); HEMOLYSIS < 15 (0-50); Potassium 4.9 mmol/L (3.4-5.1); Sodium 132 mmol/L (137-145)
[2020-08-21] MEDS: SODIUM CHLORIDE 0.9% 1,000 ML 125 ML IV (05:51)
[2020-08-21 08:00] VITALS: BP 117/63; PULSE 104; RESP 18; TEMP 36.9; O2SAT 93
[2020-08-21] MEDS: PANTOPRAZOLE 40 MG VIAL IV (08:28)
[2020-08-21] MEDS: ONDANSETRON 4 MG/2 ML INJ IV (08:28)
[2020-08-21] MEDS: MORPHINE 2 MG/ML INJ IV (08:29)
--- NOTE | 2020-08-21 11:05 | PC.NURSE ---
Am shift Pt is significantly less painful than 24 hrs prior. Less pain medication needed and Pt is less nauseated. General diet ordered. Will see how patient tolerates. IVF stopped. Update to haider Valentine who would like to explore Hospice services. Update to Dr Stevens.
--- NOTE | 2020-08-21 11:54 | PM.DS.1 ---
History of Present Illness History of Present Illness Date Patient Seen: 08/21/20 Chief complaint: GI Bleed Narrative: Katelyn Maldonado is an unfortunate 79-year-old female with a recent diagnosis of stage IV ovarian cancer now found to be widely metastatic to the lungs, multisite lymphadenopathy, retroperitoneal lymph adenopathy, and lymph adenopathy affecting the right ureter, COPD, hypertension, and asthma and hypothyroidism was seen yesterday in the day surgery center for placement of a port. When she returned home, he started to throw up dark red to black vomitus. She states that she feels ?lousy? all over, she is very nauseous, and states she can not really be very specific about all of her symptoms. Per the ED provider he spoke to Meme her daughter and VIOLA and agree that the patient needed to be admitted for rehydration, symptom control and to address palliative care issues on this admission. Per the ED provider the focus was to be on comfort however the patient is not officially on comfort care measures. Patient is unable to provide a meaningful review of systems she seems to be pretty distressed during my visit. Chest x-ray done in the ED indicated bibasilar atelectasis or infiltrates with the right greater than left, right pleural effusion with other findings recommending CT evaluation. CT that was done indicated perivascular and left supraclavicular lymphadenopathy, multilobe were reticular nodular opacities, differential including metastatic disease, bacterial, fungal or viral infection, and bilateral pleural effusions. Significant findings in the abdomen and pelvis includes cholelithiasis, betty aortic lymphadenopathy encasing the right ureter with slightly diminished right nephrogram and severe right collecting system dilatation. There is a 7 x 7 x 8.9 cm pelvic mass adjacent to the urinary bladder. Patient was administered IV Protonix and fluids were started on the patient. Patient is afebrile, blood pressure 109/52, heart rate 71, respiratory rate 24, oxygen saturation 96% on 2 L, she weighs 63 kg with a BMI of 25.7. WBC is elevated at 15.7 RBC 3.92, hemoglobin 11.7, hematocrit 36.5, and a platelet count of 446. Sodium is 131, potassium 5.3, chloride 96, bicarb 30, BUN 44, creatinine 1.10 with a GFR of 47.8 glucose is 114, lactate is 1.3, magnesium, 2.0, AST is elevated at 58 remaining liver enzymes are within normal limits, procalcitonin is pending, COVID-19 PCR is negative. Discharge Providers Provider Date of admission: 08/20/20 04:31 Discharge Date: 08/21/20 Primary care physician: Robert Evans MD Consults: 08/20/20 05:15 Consult to Physician Routine Comment: Consulting Provider: Em Maynard Reason for consultation: palliative care consult Has provider been notified: No 08/20/20 05:17 Consult to General Surgery Routine Comment: Consulting Provider: Lance Aguirre Reason for consultation: Upper GI Bleed Has provider been notified: Yes 08/20/20 06:23 Consult to Dietitian, Adult Routine Comment: Reason For Exam: weight loss approx 30 lbs per pt report Discharge provider: Rowan Stevens MD Summary Hospital Course Discharge Diagnosis: 1. Upper GI bleed 2. Stage 4 ovarian cancer 3. Dementia 4. Hypothyroidism 5. Hypertension 6. Anemia suspect acute blood anemia 7. Chronic kidney disease stage 3 8. Hypopnea Hospital Course: Patient is an 79-year-old female with stage IV ovarian cancer. She had a Port-A-Cath placed for initiation of chemotherapy. One day after her procedure the patient developed nausea and vomiting and hematemesis. She was brought into the emergency room for evaluation and treatment of her upper GI bleed. Patient was admitted to the [facility]. She had no significant blood hemoglobin decreased from 11-[address] Aguirre. Given the patient's overall significant morbidity and the fact that she did not have further bleeding it was felt that upper in doc. Patient was placed on IV pain medications as she was quite uncomfortable. The following day she was more alert and awake weak. She had no further episode of bleed patient's diet was advanced which she tolerated without difficulty. Palliative care consultation was obtained by Em maynard. Patient indicated she wanted to follow-up with her oncologist Dr. Monroe to consider chemotherapy. Patient was informed regarding hospice and palliative care. It was agreed that the patient would follow up with Dr. Monroe and discussed all treatment options up to and including palliative care versus hospice with patient made steady progress was deemed appropriate for discharge and discharged home accordingly. Status at Discharge Cognitive/behavioral status at discharge: at baseline, confused Functional status at discharge: uses cane/walker Overall status at discharge: patient is back to baseline Time Spent with Patient Time spent: Less than 30 minutes Exam Vital Signs (past 8 hours): - 08/21/20 08:00 Temperature 98.4 F Pulse Rate 104 H Respiratory Rate 18 Blood Pressure 117/63 Pulse Oximetry 93 Oxygen Delivery Method Room Air Oxygen Flow Rate 0 Narrative Exam Narrative: Ill-appearing elderly female Lungs: Clear to auscultation Cardiac exam: Regular rate and rhythm normal S1-S2 Abdomen: Soft, diffusely tender, with palpable masses Extremities: No edema Objective Labs Result Diagrams: 08/21/20 04:39 08/21/20 04:39 Labs: Laboratory Results - last 24 hr 08/20/20 08/21/20 08/21/20 13:42 04:39 04:39 WBC 4.5 D RBC 3.10 L Hgb 9.4 L Hct 28.9 L MCV 93.2 MCH 30.4 MCHC 32.6 RDW 16.7 H Plt Count 283 Neut % (Auto) 71.6 Lymph % (Auto) 11.8 L [place] % (Auto) 14.6 H Eos % (Auto) 1.7 L Baso % (Auto) 0.3 Neut # (Auto) 3200 Lymph # (Auto) 500 L [place] # (Auto) 700 Eos # (Auto) 100 Baso # (Auto) 0 Sodium 132 L Potassium 4.9 Chloride 103 Carbon Dioxide 27 BUN 59 H Creatinine 1.19 H Estimated GFR 43.6 L BUN/Creatinine Ratio 49.6 H Glucose 89 Calcium 8.3 L Magnesium 2.0 Urine Color Yellow Urine Appearance Clear Urine pH 5.5 Ur Specific [place] 1.010 Urine Protein Trace H Urine Glucose (UA) Trace H Urine Ketones Negative Urine Occult Blood Trace-lysed Urine Nitrate Negative Urine Bilirubin Negative Urine Urobilinogen 0.2 Ur Leukocyte Esterase 1+ H Urine RBC 0-1/hpf Urine WBC 10-30/hpf H Ur Squamous Epith Cells 1-5 /hpf Urine Bacteria Few (2-10) H Hyaline Casts 0-1/lpf Ur Culture Indicated? Specimen cultured PFSH Medical History Acute respiratory failure with hypoxia (09/16/19) Anemia Anxiety Asthma COPD (chronic obstructive pulmonary disease) Headache Hypertension Hypothyroidism (acquired) Memory dysfunction Surgical History H/O hysterectomy with oophorectomy H/O thyroidectomy Social History household members: none Smoking Status: Former smoker alcohol intake: current Discharge Assessment & Plan Assessment and Plan Assessment: 1. Upper GI bleed, present on admission, resolved 2. Acute blood loss anemia 3. Stage IV ovarian cancer 4. Chronic kidney disease stage 3 5. hypothyroidism 6. Dementia Plan of Treatment: Discharge home Follow-up with Dr. Monroe next week to discuss chemotherapy verses paliative care Discharge Plan Discharge Plan Patient Disposition: Home Discharge orders & Medications Prescriptions: New pantoprazole [Protonix] 40 mg tablet,delayed release (DR/EC) 40 mg PO BID 30 Days Qty: 60 RF: 0 Continued hydrocodone-acetaminophen 5-325 mg Tablet 1 tab PO Q4-6H PRN (Reason: Pain (Scale Score 1-3)) RF: 0 sennosides-docusate sodium [Senokot-S] 8.6-50 mg Tablet 1 tab-cap PO BEDTIME RF: 0 alprazolam 0.5 mg Tablet 0.5 mg PO TID PRN (Reason: Panic Attack(S)) RF: 0 sertraline 25 mg Tablet 25 mg PO DAILY RF: 0 ondansetron 4 mg Tablet,Disintegrating 4 mg PO Q6H PRN (Reason: Nausea) RF: 0 morphine 15 mg Tablet Extended Release 30 mg PO Q8H Qty: 100 RF: 0 diltiazem HCl 60 mg tablet 60 mg PO DAILY RF: 0 montelukast 10 mg tablet 10 mg PO DAILY RF: 0 levothyroxine [Synthroid] 100 mcg tablet 100 mcg PO DAILY RF: 0 levothyroxine [Synthroid] 88 mcg tablet 88 mcg PO WEEKLY RF: 0 albuterol sulfate 2.5 mg /3 mL (0.083 %) Solution For Nebulization 2.5 mg INHALATION Q4H PRN (Reason: Shortness Of Breath) RF: 0 albuterol sulfate [Ventolin HFA] 90 mcg/actuation Hfa Aerosol Inhaler 1 inh INHALATION QID PRN (Reason: Shortness Of Breath Or Wheezing) RF: 0 guaifenesin [Mucus Relief ER] 600 mg tablet extended release 12hr 600 mg PO BID PRN (Reason: Cough) RF: 0 Follow up/Referrals: Robert Evans MD [Primary Care Provider] - Discharge Health Status Multidrug resistant organism: No MDRO Diet/Activity/Treatments Diet: Diet as Tolerated Skin/Wound/Dressing Care Report to your healthcare provider any signs of infection, such as:: chills, fever Visit Report/Discharge Packet Instructions: Gastrointestinal Bleeding, Palliative Care for Cancer Discharge Data Primary Care Provider: Robert Evans
--- NOTE | 2020-08-21 13:18 | CM.DPC ---
Addendum entered by Laura Stringer LPN 08/21/20 16:06: Dr. Stevens has spoken again just now with Meme and clarfied that the d/c is for today. She reports Meme will be here shortly to take pt home. Katherine PANIAGUA is aware. Original Note: DCP: continued: Case received, EMR reviewed and was updated via [employer] email by Palliative Nurse Practioner Em Maynard on the discussion she had with pt and her daughter Meme yesterday late afternoon. Em stated her consult notes will be available in the EMR by this evening. Dr. Stevens confirms today that she spoke with Em last evening after the consultation. Met then with pt in Team Rounds and stayed on afterwards for a brief discussion. Pt states she would like to be able to go home and Dr. Stevens says this will likely be later today. She plans to discuss her options for care in more detail with Dr. Monroe in Oncology clinic, hopefully this coming week. She says this was discussed with Em Maynard in yesterday's discussion. She says her daughter does plan to stay with her until the POC going forward is clearer. Dr. Stevens stated that she was going to call Meme for further discussion and confirmed again d/c likely today. Will follow prn
--- NOTE | 2020-08-21 13:47 | DIET.PN ---
Dietary Progress Note Assessment: 79y F c current widely metastatic ovarian cancer admitted for GI bleed after port placement referred to nutrition for reported weight loss. Per chart review, pts UBW 72kg as of 1y ago and has decreased to 63kg (-12%, non-severe). Pt to d/c today c home hospice consultation. HT: 162.5cm WT: 63kg UBW: 72kg BMI: 23.8 Labs: H&H low, Na 132 L, Cr 1.19 H, eGFR 43.6 L Nutrition Diagnosis: none at this time Interventions: ONS ensure enlive bid to support energy levels Diet Order: Regular
[2020-08-21 16:00] VITALS: BP 105/56; PULSE 99; RESP 16; TEMP 36.4; O2SAT 96
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
[2020-08-21 17:06] VITALS: BP 105/56
[2020-08-21] MEDS: PROCHLORPERAZINE 10 MG/2 ML VIAL IV (17:06)
--- NOTE | 2020-08-21 18:14 | P.CONS_ITS ---
History of Present Illness Consult details Date Patient Seen: 08/20/20 Time Patient Seen: 15:15 Chief complaint: GI Bleed Reason for consult: Palliative Medicine Consultation Requesting provider: Rowan Stevens Narrative: Late entry: Reason for Consultation: Palliative medicine consultation received from Dr. Stevens regarding this 79-year-old female who was admit with acute onset nausea and vomiting, hemoptysis within hours after a Port-A-Cath placement per her oncologist, Dr. Monroe. 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 She has been followed by oncologist Dr. Childress, a gynecological oncologist, and was initially scheduled for surgical evaluation with surgical oncologist in [place] to remove the mass, however it was found that there was involvement of lymph nodes around her aorta and vena cava and vascular surgery deemed her inoperable. She decided in June to undergo ultrasound-guided biopsy of a lymph node on her left neck. Her daughter, who resides 400 ft from her mother, reports that she brought her mother home from the Port-A-Cath placement at about 2:00 p.m., and that soon after she started coughing. Within a couple of hours, she was coughing up what appeared to be old blood, then became nauseated and vomited coffee-ground emesis. EMS was activated and she was transported to the emergency department for further evaluation. Dr. Aguirre, who placed the pat ient's Port-A-Cath, came to consult on the patient and was reluctant to perform an endoscopy due to the patient has widely metastatic disease, medical frailty, and advanced age. Daughter reports that the patient has been increasingly forgetful and unable to process complex ideas for many months, this has worsened over the past few weeks. Patient was noted by EMS to have an oxygen saturation in the 80s, and was placed on 4 L of oxygen via nasal cannula. Labs revealed that the patient has leuko cytosis, wbc's 15.7, and mild anemia (RBCs 3.92, hemoglobin 11.7, hematocrit 36.5). Platelets 446. Sodium low 131, potassium normal 5.3. Patient quite dehydrated, BUN 44, creatinine 1.10. Mild protein calorie now nutrition noted, as evidenced by albumin 3.1. Patient was admitted to the medical floor for further aggressive treatment. Her daughter confirmed do not resuscitate and directed medical staff to provide more comfort oriented goals of care to her mother, though she is not currently on comfort care. Patient currently endorses mild pelvic pain, denies shortness of breath, denies nausea. Palliative medicine consulted in the case to assist the patient and family with some advanced care planning and goals of care. Past medical history: Malignant neoplasm of the ovary, secondary malignant neoplasm of lung and pelvis, asthma, COPD, hypothyroidism, hypertension Social history: Patient is , continues to live independently in the home where she and her raised their children. Her daughter lives next door and is very supportive of her mother. Patient has advanced directives in a durable power of traffic law attorney for healthcare, has elected her daughter Meme Atkinson [phone] c/ her power of traffic law attorney for healthcare. Patient and daughter agree that they chose to proceed with chemotherapy to offer the patient some relief from the pressure and discomfort that she has been experiencing in her pelvis. Meds Home Medications and Allergies Home Medications Medication Instructions Recorded Confirmed Type diltiazem HCl 60 mg PO DAILY 09/17/19 08/20/20 History levothyroxine [Synthroid] 88 mcg PO WEEKLY 09/17/19 08/20/20 History levothyroxine [Synthroid] 100 mcg PO DAILY 09/17/19 08/20/20 History montelukast 10 mg PO DAILY 09/17/19 08/20/20 History albuterol sulfate 2.5 mg INHALATION Q4H PRN 09/18/19 08/20/20 History alprazolam 0.5 mg PO TID PRN 08/12/20 08/20/20 History hydrocodone-acetaminophen 1 tab PO Q4-6H PRN 08/12/20 08/20/20 History ondansetron 4 mg PO Q6H PRN 08/12/20 08/20/20 History sennosides-docusate sodium 1 tab-cap PO BEDTIME 08/12/20 08/20/20 History [Senokot-S] sertraline 25 mg PO DAILY 08/12/20 08/20/20 History morphine 30 mg PO Q8H #100 tab 08/13/20 08/20/20 Rx albuterol sulfate [Ventolin HFA] 1 inh INHALATION QID PRN 08/19/20 08/20/20 History guaifenesin [Mucus Relief ER] 600 mg PO BID PRN 08/19/20 08/20/20 History pantoprazole [Protonix] 40 mg PO BID 30 Days #60 tab 08/21/20 Rx Allergies Allergy/AdvReac Type Severity Reaction Status Date / Time adhesive tape Allergy Severe skin welt, Verified 09/17/19 07:42 bruising, and tears codeine [CODEINE] Allergy Severe Nausea Verified 09/17/19 07:42 Sulfa (Sulfonamide Allergy Severe Nausea Verified 09/17/19 07:42 Antibiotics) [SULFA (SULFONAMIDE ANTIBIOTICS)] amoxicillin [AMOXICILLIN] Allergy Intermediate GI UPSET Verified 09/17/19 07:42 Review of Systems Constitutional Constitutional: Reports as per HPI Exam Vital Signs (past 8 hours): - 08/21/20 16:00 08/21/20 17:06 Temperature 97.6 F Pulse Rate 99 H Respiratory Rate 16 Blood Pressure 105/56 L 105/56 L Pulse Oximetry 96 Oxygen Delivery Method Room Air Oxygen Flow Rate 0 Narrative Exam Narrative: Elderly, frail-appearing woman appears engulfed by hospital bed mattress. She is attended at bedside by her daughter. Const General: cooperative, well groomed and frail appearing Nutritional Appearance: thin Orientation: oriented x3 and other (forgetful, has difficulty with complex ideas, trouble with decision making.) Resp Effort & Inspection: normal respiratory effort and able to speak in complete sentences Psych Affect: blunted Attitude: avoids eye contact Thought Process: tangential Thought Content: normal Judgment: limited Objective Labs Result Diagrams: 08/21/20 04:39 08/21/20 04:39 Labs: Laboratory Results - last 24 hr 08/21/20 08/21/20 04:39 04:39 WBC 4.5 D RBC 3.10 L Hgb 9.4 L Hct 28.9 L MCV 93.2 MCH 30.4 MCHC 32.6 RDW 16.7 H Plt Count 283 Neut % (Auto) 71.6 Lymph % (Auto) 11.8 L York % (Auto) 14.6 H Eos % (Auto) 1.7 L Baso % (Auto) 0.3 Neut # (Auto) 3200 Lymph # (Auto) 500 L York # (Auto) 700 Eos # (Auto) 100 Baso # (Auto) 0 Sodium 132 L Potassium 4.9 Chloride 103 Carbon Dioxide 27 BUN 59 H Creatinine 1.19 H Estimated GFR 43.6 L BUN/Creatinine Ratio 49.6 H Glucose 89 Calcium 8.3 L Magnesium 2.0 Assessment & Recommendations A & R narrative: Discussion: Met with patient and family at bedside. Reviewed past medical history and hospital course with the patient and her daughter. Patient confirms that she most trusts her daughter to help make medical decisions for her. Copy of advanced directive and durable power of traffic law attorney for healthcare are be placed on chart. Patient seems to understand that she has advanced ovarian cancer, which is not curable. She states that she was hopeful to do ?somethingto slade her cancer, daughter reports that the main reason for chemotherapy was to offer her mother some palliation from her pain. Daughter used to work for the oncologist who is tending her mother, and has also worked in hospice. Patient seems confused and has difficulty following complex ideas, such as those related to resuscitation and aggressive care. She seems comforted by the thought that her daughter wishes to abide by her living will, which places limitations on aggressive, her rock measures. Patient confirms do not resuscitate at this ti me. She also wishes to avoid artificial nutrition and hydration. Patient is offered the opportunity to complete the [place] state POLST. This is partially filled out, but patient and daughter would like to review the form in more depth prior to signing it. A brief explanation of the hospice Medicare benefit is provided, patient is encouraged to discuss her treatment options with her oncologist prior to making decisions regarding end of life care. Updated the medical team regarding the outcome of this palliative medicine consultation. Impression: -malignant neoplasm of the ovary -secondary malignant neoplasm of the lung -secondary malignant neoplasm of the peritoneum -retroperitoneal adenopathy -gastrointestinal bleed -nausea and vomiting-improved -pain due to neoplasm -forgetfulness -palliative medicine consultation Coding: To remain informed regarding current treatment opportunities, provider reviewed extensive additional documentation of multiple treatment providers/facilities which was utilized to update the management plan. Total time in review of additional medical information is 15 minutes, external to in person evaluation. Time in assessment and management of acute and chronic medical diagnoses, pertinent history to palliative medicine decision making, discussion and management of clinical findings enumerated above as well as fears regarding the transition to a more end of life plan and and dying is 32 minutes, more than half of which is necessary for education and counseling. Advanced Care Planning discussion time is 18 minutes. The patient currently has testamentary documents for estate planning, DPO[employer] but lacks POLST and statement of wishes. Dialogue addresses patient preferences at the end/near end of life including resuscitation wishes (no CPR, DNAR). Additional care limits discussed above.
== END 2020-08-21 18:00 | disposition home or self-care (01) | DRG 378 ==
LOC: ED 02:35 → AC 04:31 → ICU 04:33
PROVIDERS: Admitting Provider Nurse Practitioner Family; Emergency Provider Emergency Medicine; PCP Internal Medicine; Referring Provider Emergency Medicine; Visit Provider Nurse Practitioner Family
DX: K92.0 Hematemesis (principal); N17.9 Acute kidney failure, unspecified; C56.9 Malignant neoplasm of unspecified ovary; C78.00 Secondary malignant neoplasm of unspecified lung; C77.2 Secondary and unspecified malignant neoplasm of intra-abdominal lymph nodes; E87.5 Hyperkalemia; J44.9 Chronic obstructive pulmonary disease, unspecified; I10 Essential (primary) hypertension; J45.909 Unspecified asthma, uncomplicated; E03.9 Hypothyroidism, unspecified; Z20.822 Contact with and (suspected) exposure to COVID-19; Z87.891 Personal history of nicotine dependence
CPT/HCPCS: 36415; 71045; 71260; 74177; 76000; 80048; 80053; 81001; 83605; 83735; 84145; 85025; 85610; 86850; 86900; 86901; 87077; 87086; 87186; 87635; 87797; 93005; 96374; 99284; 99285; C9803; C9113; J0780; J2270; J2405; Q9967

== ENCOUNTER → 2020-11-03 11:06 | Outpatient (CLI) | payer MEDICARE, OTHER, SELFPAY ==
[2020-08-20 05:00] VITALS: BMI 23.8
--- NOTE | 2020-11-03 12:04 | DI.CT.S_ITS ---
PROCEDURE: CT CHEST ABD PEL W CON INDICATIONS: restaging TECHNIQUE: After the administration of oral and intravenous contrast, axial sections acquired from the supraclavicular neck to the pubic symphysis. Coronal and sagittal reformats were performed. For radiation dose reduction, the following was used: automated exposure control, adjustment of mA and/or kV according to patient size. COMPARISON:[facility], CT, CT CHEST ABD PEL W CON, 08/20/2020, 1:47. FINDINGS: Image quality: Excellent. CHEST: Lower Neck: No enlarged lymph nodes. Thyroid: The right lobe is surgically absent. The left lobe is unremarkable. Axillae: No enlarged lymph nodes. Chest Wall: Right IJ MediPort in place. Lungs and Airways: Consolidation of the posterior basal segment right lower lobe, chronic. Mild atelectatic change medially at the left lung base. No suspicious nodules or masses in the lungs. The airway remains patent. Pleura: Moderate size right and small left pleural effusions layering dependently. Both have increased in size compared to the prior study. Heart: Heart size is normal. No pericardial effusion. Thoracic Vessels: The aorta and pulmonary arteries demonstrate normal size. Mediastinum and Jordana: 2.4 x 2.9 cm left prevascular lymph node compresses the proximal left subclavian vein. Similar size compared to the prior study. Decreased size of as ago esophageal recess node. Nonvisualization of the left periesophageal lymph node. 3.1 x 1.5 cm left supraclavicular lymph node has decreased in size, previously 3.8 x 2.1 cm. Esophagus: No wall thickening. Large, stable hiatal hernia. ABDOMEN: Liver: There are numerous irregular hypodensities scattered throughout the liver as well as a heterogeneous mass in the caudate lobe region with mass effect on the portal vein. Given different phase of contrast from the prior study, these are difficult to measure but appear fairly similar in number. There is trace perihepatic ascites caudally. Gallbladder: There are numerous small dependent stones in the gallbladder, some near the neck. Biliary ducts: No dilatation or visible choledocholithiasis. Pancreas: Unremarkable. Spleen: Unremarkable. Adrenal Glands: Unremarkable. Kidneys and Ureters: There is severe right hydronephrosis and dilatation of the extrarenal pelvis and marked hydroureter to the pelvis. There is normal enhancement of the kidney and no perinephric inflammation. The left kidney appears normal. Stomach and Bowel: Increased quantity of solid stool in the distal colon and rectum. There are signs of stasis and pelvic small bowel loops, some are mildly dilated and demonstrate air-fluid levels and mucosal enhancement. There is some tethering towards the pelvic mass. Peritoneum: Trace fluid in the right pericolic gutter. No extraluminal gas. Ventral Wall: [id number] subcutaneous edema. No ventral hernias. Abdominal Nodes: Extensive periceliac, peripancreatic, periaortic, vidal hepatis retroperitoneal adenopathy. Periportal ian mass measures roughly 6.4 x 7.6 cm, fairly stable, previously 6.3 x 7.4 cm. Adenopathy extends to the level of the aortic bifurcation caudally. Vessels: Aorta and inferior vena cava are normal in size. Heavy abdominal aortic atherosclerotic calcification. PELVIS: Pelvic Organs: An ill-defined heterogeneous cystic and solid right pelvic mass is redemonstrated and measures approximately 8.7 x 7.0 cm, previously about 8.9 x 8.8 cm. Subjectively, much of the enhancing solid component appears to have decreased. The uterus is absent. Bladder: The right distal ureter is likely tethered by the upper portion of the pelvic mass and is not able to be followed to the ureterovesicular junction. The urinary bladder is decompressed and is otherwise normal. Pelvic Nodes: Several enlarged right pelvic sidewall and external iliac nodes. 1 of the largest has decreased in size and may actually represent two nodes adjacent which other, but demonstrates transverse diameter of 1.6 cm, previously 2.4 cm. Miscellaneous: No inguinal hernias are seen. Bones:. Degenerative changes. No suspicious bone lesions. IMPRESSION: 1. Slight response to treatment with decreased size of dominant pelvic mass, pelvic lymph nodes, mediastinal lymph nodes, and supraclavicular lymph node. 2. Fairly stable, persistent retroperitoneal, periceliac, and periportal adenopathy. 3. Increased size of bilateral pleural effusions. 4. Stable number of hepatic lesions, difficult to measure due to different phase of IV contrast. 5. Possible partial small-bowel obstruction due to tethering adjacent to the pelvic mass. 6. There is a chronic distal ureteral obstruction due to the pelvic mass with severe right hydronephrosis. 7. Cholelithiasis. 8. Large hiatal hernia. 9. No new sites of disease or osseous lesions. Dictated by: Ilda Menendez M.D. on 11/03/2020 at 13:13 Approved by: Ilda Menendez M.D. on 11/03/2020 at 13:41
== END ==
PROVIDERS: PCP Internal Medicine; Referring Provider Internal Medicine Medical Oncology; Visit Provider Internal Medicine Medical Oncology
DX: C56.9 Malignant neoplasm of unspecified ovary (principal); C77.3 Secondary and unspecified malignant neoplasm of axilla and upper limb lymph nodes; R19.00 Intra-abdominal and pelvic swelling, mass and lump, unspecified site; R59.1 Generalized enlarged lymph nodes; J90 Pleural effusion, not elsewhere classified; K76.9 Liver disease, unspecified; N13.1 Hydronephrosis with ureteral stricture, not elsewhere classified; K44.9 Diaphragmatic hernia without obstruction or gangrene; K80.20 Calculus of gallbladder without cholecystitis without obstruction; Z95.828 Presence of other vascular implants and grafts
CPT/HCPCS: 71260; 74177; Q9967

== ENCOUNTER 2020-12-22 12:15 | Inpatient (IN) | payer MEDICARE, OTHER, SELFPAY ==
[2020-08-20 05:00] VITALS: BMI 23.8
[2020-12-22] VITALS (29 sets, daily range): BP systolic 89–103; BP diastolic 51–71; PULSE 80–95; RESP 3–27; TEMP 36–36.2; O2SAT 94–100; BMI 23.6
--- NOTE | 2020-12-22 12:26 | DI.RAD.S_ITS ---
PROCEDURE: XR CHEST 1V INDICATIONS: chest pain TECHNIQUE: One view of the chest was acquired. COMPARISON: [facility], CT, CT CHEST ABD PEL W CON, 11/03/2020, 12:03. [facility], CT, CT CHEST ABD PEL W CON, 08/20/2020, 1:47. [facility], CR, XR CHEST 1V, 08/20/2020, 0:26. FINDINGS: Surgical changes and devices: There is a stable right-sided chest port. Lungs and pleura: There is focal opacification seen involving the right lung base, which is worse compared to prior examinations. There is no pneumothorax seen on either side. The left lung appears clear. Mediastinum: The cardiac contours are within normal limits. The aorta demonstrates calcification and tortuosity. There is a large hiatal hernia seen. Bones and chest wall: No suspicious bony lesions. Age-appropriate bony degenerative changes are seen. Mild levoconvex scoliotic curvature is noted. Overlying soft tissues appear unremarkable. IMPRESSION: Worsening left lung base opacity seen, which is attributed to a combination of pleural effusion and atelectasis. Large hiatal hernia. Incidental note is made of: Stable right-sided chest port Dictated by: Jesús Bonilla M.D. on 12/22/2020 at 11:38 Approved by: Jesús Bonilla M.D. on 12/22/2020 at 11:41
--- NOTE | 2020-12-22 13:47 | DI.US.S_ITS ---
PROCEDURE: US PERIPH VENOUS LOW EXTREM RT INDICATIONS: SWELLING TECHNIQUE: Real-time imaging, as well as color and pulse Doppler interrogation, were performed of the lower extremity deep veins from the inguinal ligament to the popliteal fossa. COMPARISON: [facility], US, US ARTERIAL DUPLEX LE RT, 12/22/2020, 14:26. [facility], CT, CT CHEST ABD PEL W CON, 12/22/2020, 14:07. FINDINGS: Extensive occlusive right lower extremity deep venous thrombosis can be seen involving the common femoral vein, greater saphenous vein, the profunda femoris vein, the femoral vein, and the popliteal vein. Extensive soft tissue edema can be seen from the right groin through the popliteal fossa. IMPRESSION: Extensive occlusive right lower extremity deep venous thrombosis. Dictated by: Jesús Bonilla M.D. on 12/22/2020 at 14:13 Approved by: Jesús Bonilla M.D. on 12/22/2020 at 14:14
--- NOTE | 2020-12-22 13:47 | DI.US.S_ITS ---
PROCEDURE: US ARTERIAL DUPLEX LE RT INDICATIONS: COLD LEG TECHNIQUE: Color and pulse Doppler interrogation was performed of the right lower extremity arterial system, with image documentation. COMPARISON: [facility], US, US PERIPH VENOUS LOW EXTREM RT, 12/22/2020, 14:19. [facility], CT, CT CHEST ABD PEL W CON, 12/22/2020, 14:07. FINDINGS: Common femoral artery: 77 cm/sec, with triphasic flow. Deep femoral artery: 54 cm/sec, with triphasic flow. Proximal superficial femoral artery: 71 cm/sec, with stripe is flow. Mid superficial femoral artery: 51 cm/sec, with triphasic flow. Distal superficial femoral artery: 49 cm/sec, with biphasic flow. Popliteal artery: 58 cm/sec, with triphasic flow. Posterior tibial artery: The distal posterior tibial artery is not well seen. The mid posterior tibial artery demonstrates a flow velocity of 33 cm/sec, with biphasic flow. Anterior tibial artery/dorsalis pedis: 22 cm/sec, with biphasic flow. Arenas-scale imaging description: Atherosclerotic change can be seen, particularly involving the distal posterior tibial artery and the mid femoral artery IMPRESSION: Flow is not well seen within the distal posterior tibial artery. Otherwise, no significant right lower extremity arterial stenosis. Dictated by: Jesús Bonilla M.D. on 12/22/2020 at 14:16 Approved by: Jesús Bonilla M.D. on 12/22/2020 at 14:17
--- NOTE | 2020-12-22 13:47 | DI.CT.S_ITS ---
PROCEDURE: CT CHEST ABD PEL W CON INDICATIONS: Ovarian cancer right leg swelling TECHNIQUE: After the administration of oral and intravenous contrast, axial sections acquired from the supraclavicular neck to the pubic symphysis. Coronal and sagittal reformats were performed. For radiation dose reduction, the following was used: automated exposure control, adjustment of mA and/or kV according to patient size. COMPARISON: [facility], US, US ARTERIAL DUPLEX LE RT, 12/22/2020, 14:26. [facility], US, US PERIPH VENOUS LOW EXTREM RT, 12/22/2020, 14:19. [facility], CT, CT CHEST ABD PEL W CON, 11/03/2020, 12:03. FINDINGS: Image quality: Excellent. CHEST: Lower Neck: An apparent enlarged left supraclavicular lymph node is seen, as on series 2, image 7 measuring 3.6 x 1.9 cm. This is clearly larger on the current study than on the prior. Thyroid: The thyroid is small in size. Axillae: No enlarged lymph nodes. Chest Wall: A right-sided chest port is seen, with the tip within the mid superior vena cava. Lungs and Airways: No consolidation or suspicious nodules. Mild dependent right-sided atelectasis can be seen. Pleura: No pneumothorax. There is a small to moderate right-sided pleural effusion. Heart: Heart size is normal. No pericardial effusion. Thoracic Vessels: The aorta and pulmonary arteries demonstrate normal size. Mediastinum and Jordana: Several enlarged mediastinal lymph nodes are seen, including a confluent mass of prevascular lymph nodes that measures 5.5 cm in greatest axial dimension, with a craniocaudal extent of 2.2 x 2.9 cm. Esophagus: No wall thickening. There is a large hiatal hernia. ABDOMEN: Liver: Numerous prominent hypervascular masses can be seen within the liver, which are clearly worse than on the prior examination. For example, within the right posterior liver there was a 3.8 x 3.4 cm mass that now measures 5.9 x 5.5 cm. Gallbladder: Numerous layering gallstones can be seen within the gallbladder. Biliary ducts: Unremarkable. Pancreas: Unremarkable. Spleen: Unremarkable. Adrenal Glands: Unremarkable. Kidneys and Ureters: There is severe right-sided hydronephrosis seen, which is overall slightly worse than the prior examination. There is right-sided hydroureter, which continues to the right pelvic mass. The left kidney is unremarkable, without hydronephrosis. Stomach and Bowel: Stomach, small bowel loops, and colon are unremarkable. Prominent stool can be seen within the rectal vault, which measures 7.4 cm transversely. Peritoneum: A small amount of free fluid can be seen layering within the pelvis. Ventral Wall: No hernia. Generalized anasarca can be seen. Abdominal Nodes: Confluent retroperitoneal lymph nodes are seen, including a periaortic mass of lymph nodes that measures 6.1 x 4.2 cm in greatest axial dimension, as on series 2, image 79. Danica hepatis lymph nodes can be seen, with the largest group of lymph nodes measuring 6.3 x 4.9 cm in greatest axial dimension. These lymph nodes are overall worse on the current study than on the prior. Vessels: Aorta and inferior vena cava are normal in size. Atherosclerotic calcification is noted. PELVIS: Pelvic Organs: This patient is status post hysterectomy. Bladder: Unremarkable. Miscellaneous: There is an irregular soft tissue mass seen within the right anterior pelvis, which is attributed to metastatic mass that measures 8.6 x 6.6 cm in greatest axial dimension. This is overall slightly more prominent on the current study than on the prior. Bones: S-shaped scoliotic curvature is seen. Age-appropriate bony degenerative changes are seen. IMPRESSION: There is a small to moderate right-sided pleural effusion, with overlying atelectasis. This pleural effusion is similar in size to the 11/03/2020 examination. Enlarged mediastinal lymph nodes are seen, which are similar to the prior. Clear interval worsening of metastatic disease to the liver, with numerous large hypervascular masses. Clear interval worsening of metastatic upper abdominal and retroperitoneal lymph nodes. Cystic and solid mass seen involving the anterior right pelvis, which is overall slightly more prominent on the current study than on the prior. Severe right-sided hydronephrosis and hydroureter, with a site of obstruction apparently the right pelvic mass. There is generalized anasarca seen, which is worse than on the prior. There is prominent stool within the rectal vault. Please correlate with constipation. Additional enlarged metastatic lymph node within the left supraclavicular region, which is worse than on the prior. Incidental note is made of: Small thyroid Right-sided chest port Large hiatal hernia Gallstones S shaped scoliotic curvature Dictated by: Jesús Bonilla M.D. on 12/22/2020 at 14:32 Approved by: Jesús Bonilla M.D. on 12/22/2020 at 14:43
[2020-12-22 13:50] LABS: Add Manual Diff / Slide Review NO; Basophils Absolute Auto 0 /uL (0-100); Basophils Percent Auto 0.2 % (0-2); Eosinophils Absolute Auto 0 /uL (0-450); Eosinophils Percent Auto 0.1 % (2-4); Hematocrit 31.5 % (36-46); Hemoglobin 10.2 g/dL (12.0-16.0); Lymphocytes Absolute Auto 600 /uL (1100-4500); Lymphocytes Percent Auto 7.2 % (25-40); Mean Corpuscular HGB Conc 32.4 % (30-36); Mean Corpuscular Hemoglobin 32.3 PG (26-34); Mean Corpuscular Volume 99.7 fL (80-100); Monocytes Absolute Auto 900 /uL (0-900); Monocytes Percent Auto 9.9 % (3-14); Neutrophils Absolute Auto 7400 /uL (1500-7000); Neutrophils Percent Auto 82.6 % (50-75); Platelet Count 328 X10^3/uL (150-400); Red Blood Cell Count 3.16 X10^6/uL (4.0-5.2); Red Cell Distribution Width 17.5 % (11.6-14.8)
[2020-12-22 13:55] LABS: INR 1.3 (0.9-1.3); Prothrombin Time 14.3 SECONDS (10.1-12.7)
[2020-12-22] MEDS: SODIUM CHLORIDE 0.9% 1,000 ML 1000 ML IV (13:57)
[2020-12-22 13:58] LABS: PTT Partial Thromboplastin Tim 30 SECONDS (26.4-36.2)
[2020-12-22 14:00] LABS: Alanine Aminotransferase 38 IU/L (<35); Albumin 3.2 g/dL (3.5-5.0); Albumin Globulin Ratio 0.8 (1.0-2.8); Alkaline Phosphatase 430 U/L (38-126); Aspartate Aminotransferase 128 IU/L (14-36); BUN Creatinine Ratio 32.7 (6-22); Bilirubin Total 1.6 mg/dL (0.2-1.3); Blood Urea Nitrogen 51 mg/dL (7-17); Calcium 8.7 mg/dL (8.4-10.2); Carbon Dioxide 23 mmol/L (22-32); Chloride 100 mmol/L (98-107); Creatine Kinase 317 U/L (30-135); Estimated Glomerular Filt Rate 31.9 mL/min (>60); Globulin 3.9 g/dL (1.7-4.1); Glucose 81 mg/dL (80-110); HEMOLYSIS < 15 (0-50); Lactate (Lactic Acid) 1.9 mmol/L (0.7-2.1); Lipase 221 U/L (23-300); Sodium 129 mmol/L (137-145); Total Protein 7.1 g/dL (6.3-8.2)
--- NOTE | 2020-12-22 14:01 | PC.NURSE ---
marked pulse location on top of rt foot.
--- NOTE | 2020-12-22 14:10 | PC.NURSE ---
daughter states edward has had swelling in the rt leg but the color change is new.
[2020-12-22 14:12] LABS: Troponin I < 0.012 ng/mL (0.01-0.034)
[2020-12-22 14:16] LABS: Procalcitonin 0.82 ng/mL (<0.5)
--- NOTE | 2020-12-22 14:20 | ED_ITS ---
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 Daughter has not seen patient in about 6 weeks secondary to her known COVID infection is at bedside. She states that patient has been falling more over the past couple of weeks. The right leg has been swollen for some time but it was not swollen at the beginning of November, however the right leg has beat, bluish in color over the last couple of days. She denies any pain. She is undergoing palliative chemotherapy. She denies any fever or chills. She is noted to be hypotensive. Patient is overall poor historian most of history is from daughter who is at bedside. Related Data Home Medications Medication Instructions Recorded Confirmed diltiazem HCl 60 mg tablet 60 mg PO DAILY 09/17/19 12/22/20 levothyroxine 100 mcg tablet 100 mcg PO DAILY 09/17/19 12/22/20 (Synthroid) levothyroxine 88 mcg tablet 88 mcg PO WEEKLY 09/17/19 12/22/20 (Synthroid) montelukast 10 mg tablet 10 mg PO DAILY 09/17/19 10/22/20 albuterol sulfate 2.5 mg INHALATION Q4H PRN 09/18/19 10/22/20 alprazolam 0.5 mg tablet 0.5 mg PO TID PRN 08/12/20 10/22/20 sennosides 8.6 mg-docusate sodium 1 tab-cap PO BEDTIME 08/12/20 12/22/20 50 mg tablet (Senokot-S) sertraline 25 mg tablet 25 mg PO DAILY 08/12/20 12/22/20 albuterol sulfate 90 mcg/actuation 1 inh INHALATION QID PRN 08/19/20 10/22/20 aerosol inhaler (Ventolin HFA) guaifenesin 600 mg tablet, 600 mg PO BID PRN 08/19/20 10/22/20 extended release 12 hr (Mucus Relief ER) Previous Rx's Medication Instructions Recorded ondansetron 4 mg disintegrating 4 mg PO Q6H PRN #50 tab 09/03/20 tablet hydrocodone 5 mg-acetaminophen 325 1 - 2 tab PO Q4-6H PRN #100 tab 10/01/20 mg tablet pantoprazole 40 mg tablet,delayed 40 mg PO BID #60 tab 10/01/20 release morphine 15 mg tablet,extended 30 mg PO Q8H #100 tab 10/22/20 release hydrocodone 5 mg-acetaminophen 325 1 - 2 tab PO Q4H PRN #100 tab 12/02/20 mg tablet Allergies Allergy/AdvReac Type Severity Reaction Status Date / Time adhesive tape Allergy Severe skin welt, Verified 12/22/20 12:26 bruising, and tears codeine [CODEINE] Allergy Severe Nausea Verified 12/22/20 12:26 Sulfa (Sulfonamide Allergy Severe Nausea Verified 12/22/20 12:26 Antibiotics) [SULFA (SULFONAMIDE ANTIBIOTICS)] amoxicillin [AMOXICILLIN] Allergy Intermediate GI UPSET Verified 12/22/20 12:26 Review of Systems Review of Systems Narrative: ROS is limited 2nd to patient being poor historian. Please see HPI Patient History Medical History Acute respiratory failure with hypoxia (09/16/19) Anemia Anxiety Asthma COPD (chronic obstructive pulmonary disease) Headache Hypertension Hypothyroidism (acquired) Memory dysfunction Surgical History H/O hysterectomy with oophorectomy H/O thyroidectomy Social History household members: none Smoking Status: Former smoker alcohol intake: current Smoking Status: Former smoker alcohol intake frequency: holidays/special occasions only Substance Use Type: does not use Exam Initial Vital Signs Initial Vital Signs: Vital Signs Temperature 97.1 F L 12/22/20 12:22 Pulse Rate 86 12/22/20 12:22 Respiratory Rate 20 12/22/20 12:22 Blood Pressure 95/66 12/22/20 12:22 Pulse Oximetry 96 12/22/20 12:22 GENERAL: Alert 80-year-old female does not appear to be in distress HEENT: Head atraumatic,EOMI, pupils reactive, face symmetric, mucous membranes CARDIOVASCULAR: Regular rate and rhythm without murmurs, rubs or gallops. RESPIRATORY: Breath sounds equal bilaterally, no wheezes rales or rhonchi. ABDOMEN: Soft, mild right lower quadrant tenderness EXTREMITIES: Normal range of motion, no clubbing or edema. Neurovascularly intact Right lower extremity swelling mottled cyanotic cold distal pedal pulse is palpable but is extremely faint. NEUROLOGICAL: Alert and oriented x2 SKIN: Warm, dry, no laceration, no petechiae, no rashes or lesions. Course Orders Ordered: ED Orders 12/22/20 12:25 EKG-12 Lead Stat 12/22/20 12:26 XR chest 1V Stat 12/22/20 13:30 Complete Blood Count AUTO DIFF Stat Comprehensive Metabolic Panel Stat Lactate (Lactic Acid) Stat Lipase Stat Partial Thromboplastin Time Stat Procalcitonin Stat Prothrombin Time INR Stat Troponin & CK Cardiac Panel Stat 12/22/20 13:47 CT chest abd pel w con Stat US arterial duplex LE RT Stat US periph venous low extrem rt Stat 12/22/20 13:50 COVID19 - ADMIT ([employer] swab/PCR) Stat 12/22/20 13:58 Blood Culture Stat 12/22/20 16:34 CT angio LE RT Stat Heparin Sodium/Dextrose (Heparin Drip) 25,000 unit in 500 mls @ 18 mls/hr IV CONT DARCY; Protocol Last Titration: 12/22/20 20:05 Dose: 18 units/kg/hr, 18 mls/hr Documented by: Admin: 12/22/20 17:50 Dose: 18 units/kg/hr, 18 mls/hr Documented by: CHELSEY Discontinued Medications Heparin Sodium (Porcine) (Heparin 5,000 Unit/Ml Vial) 4,000 unit 80 unit/kg (4000 unit) IV NOW ONE Stop: 12/22/20 16:06 Last Admin: 12/22/20 17:46 Dose: 4,000 unit Documented by: CHELSEY Sodium Chloride (Normal Saline 0.9%) 1,000 mls @ 1,000 mls/hr IV BOLUS ONE Stop: 12/22/20 14:50 Last Infusion: 12/22/20 16:00 Dose: 0 mls/hr Documented by: Admin: 12/22/20 13:57 Dose: 1,000 mls/hr Documented by: CHELSEY Cefepime HCl 2 gm/ Sodium (Chloride) 100 mls @ 200 mls/hr IV NOW ONE Stop: 12/22/20 14:25 Last Infusion: 12/22/20 19:02 Dose: 0 mls/hr Documented by: Admin: 12/22/20 14:53 Dose: 200 mls/hr Documented by: MILADISONER Vital Signs Vital signs: Vital Signs - 8 hr 12/22/20 13:00 12/22/20 13:15 12/22/20 13:30 Pulse Rate 87 85 87 Respiratory Rate 15 16 13 Blood Pressure 94/52 L 93/54 L 91/57 L Pulse Oximetry 100 97 98 12/22/20 13:45 12/22/20 14:00 12/22/20 14:15 Pulse Rate 89 87 84 Respiratory Rate 20 18 15 Blood Pressure 103/59 L 99/62 98/64 Pulse Oximetry 99 98 98 12/22/20 14:30 12/22/20 14:45 12/22/20 15:00 Pulse Rate 84 86 85 Respiratory Rate 18 18 27 H Blood Pressure 98/68 99/71 94/66 Pulse Oximetry 99 99 99 12/22/20 15:30 12/22/20 16:00 12/22/20 16:30 Pulse Rate 84 81 80 Respiratory Rate 14 12 16 Blood Pressure Pulse Oximetry 97 96 97 12/22/20 17:00 12/22/20 17:30 12/22/20 17:58 Pulse Rate 81 84 86 Respiratory Rate 19 17 19 Blood Pressure 98/59 L Pulse Oximetry 98 100 97 12/22/20 18:00 12/22/20 18:15 Pulse Rate 91 H 87 Respiratory Rate 20 23 Blood Pressure 97/56 L 96/53 L Pulse Oximetry 94 98 MDM - Fall Lab Data Result diagrams: 12/22/20 13:30 12/22/20 13:30 Labs: Lab Results 12/22/20 12/22/20 12/22/20 Range/Units 13:30 13:30 13:30 WBC 9.0 (4.5-11.0) X10^3/uL RBC 3.16 L (4.0-5.2) X10^6/uL Hgb 10.2 L (12.0-16.0) g/dL Hct 31.5 L (36-46) % MCV 99.7 (80-100) fL MCH 32.3 (26-34) PG MCHC 32.4 (30-36) % RDW 17.5 H (11.6-14.8) % Plt Count 328 (150-400) X10^3/uL Neut % (Auto) 82.6 H (50-75) % Lymph % (Auto) 7.2 L (25-40) % [place] % (Auto) 9.9 (3-14) % Eos % (Auto) 0.1 L (2-4) % Baso % (Auto) 0.2 (0-2) % Neut # (Auto) 7400 H (0595-0279) /uL Lymph # (Auto) 600 L (0572-7033) /uL [place] # (Auto) 900 (0-900) /uL Eos # (Auto) 0 (0-450) /uL Baso # (Auto) 0 (0-100) /uL PT (10.1-12.7) SECONDS INR (0.9-1.3) APTT (26.4-36.2) SECONDS Sodium 129 L (137-145) mmol/L Potassium 5.0 (3.4-5.1) mmol/L Chloride 100 (98-107) mmol/L Carbon Dioxide 23 (22-32) mmol/L BUN 51 H (7-17) mg/dL Creatinine 1.56 H (0.52-1.04) mg/dL Estimated GFR 31.9 L (>60) mL/min BUN/Creatinine Ratio 32.7 H (6-22) Glucose 81 (80-110) mg/dL Lactate 1.9 (0.7-2.1) mmol/L Calcium 8.7 (8.4-10.2) mg/dL Total Bilirubin 1.6 H (0.2-1.3) mg/dL AST 128 H (14-36) IU/L ALT 38 H (<35) IU/L Alkaline Phosphatase 430 H (38-126) U/L Total Creatine Kinase 317 H (30-135) U/L CK-MB (CK-2) 4.46 H (<2.37) ng/mL CK-MB (CK-2) Rel Index 1.4 L (1.5-5.0) % Troponin I < 0.012 (0.01-0.034) ng/mL Total Protein 7.1 (6.3-8.2) g/dL Albumin 3.2 L (3.5-5.0) g/dL Globulin 3.9 (1.7-4.1) g/dL Albumin/Globulin Ratio 0.8 L (1.0-2.8) Lipase 221 (23-300) U/L Procalcitonin 0.82 H (<0.5) ng/mL SARS-CoV-2 (PCR) (Negative) 12/22/20 12/22/20 Range/Units 13:30 13:50 WBC (4.5-11.0) X10^3/uL RBC (4.0-5.2) X10^6/uL Hgb (12.0-16.0) g/dL Hct (36-46) % MCV (80-100) fL MCH (26-34) PG MCHC (30-36) % RDW (11.6-14.8) % Plt Count (150-400) X10^3/uL Neut % (Auto) (50-75) % Lymph % (Auto) (25-40) % [place] % (Auto) (3-14) % Eos % (Auto) (2-4) % Baso % (Auto) (0-2) % Neut # (Auto) (4892-8614) /uL Lymph # (Auto) (3871-5227) /uL [place] # (Auto) (0-900) /uL Eos # (Auto) (0-450) /uL Baso # (Auto) (0-100) /uL PT 14.3 H (10.1-12.7) SECONDS INR 1.3 (0.9-1.3) APTT 30 (26.4-36.2) SECONDS Sodium (137-145) mmol/L Potassium (3.4-5.1) mmol/L Chloride (98-107) mmol/L Carbon Dioxide (22-32) mmol/L BUN (7-17) mg/dL Creatinine (0.52-1.04) mg/dL Estimated GFR (>60) mL/min BUN/Creatinine Ratio (6-22) Glucose (80-110) mg/dL Lactate (0.7-2.1) mmol/L Calcium (8.4-10.2) mg/dL Total Bilirubin (0.2-1.3) mg/dL AST (14-36) IU/L ALT (<35) IU/L Alkaline Phosphatase (38-126) U/L Total Creatine Kinase (30-135) U/L CK-MB (CK-2) (<2.37) ng/mL CK-MB (CK-2) Rel Index (1.5-5.0) % Troponin I (0.01-0.034) ng/mL Total Protein (6.3-8.2) g/dL Albumin (3.5-5.0) g/dL Globulin (1.7-4.1) g/dL Albumin/Globulin Ratio (1.0-2.8) Lipase (23-300) U/L Procalcitonin (<0.5) ng/mL SARS-CoV-2 (PCR) Negative (Negative) Imaging Data Chest x-ray: Radiologist's Impression: PROCEDURE:? XR CHEST 1V ? INDICATIONS:? chest pain ? TECHNIQUE:? One view of the chest was acquired.? ? COMPARISON:? [facility], CT, CT CHEST ABD PEL W CON, 11/03/2020, 12:03.? [facility], CT, CT CHEST ABD PEL W CON, 08/20/2020, 1:47.? [facility], CR, XR CHEST 1V, 08/20/2020, 0:26. ? FINDINGS:? ? Surgical changes and devices:? There is a stable right-sided chest port. ? Lungs and pleura:? There is focal opacification seen involving the right lung base, which is worse compared to prior examinations.? There is no pneumothorax seen on either side.? The left lung appears clear. ? Mediastinum:? The cardiac contours are within normal limits. The aorta demonstr ates calcification and tortuosity.? There is a large hiatal hernia seen. ? Bones and chest wall:? No suspicious bony lesions.? Age-appropriate bony degenerative changes are seen.? Mild levoconvex scoliotic curvature is noted. ? ? Overlying soft tissues appear unremarkable.? ? ? IMPRESSION:? Worsening left lung base opacity seen, which is attributed to a combination of pleural effusion and atelectasis. ? Large hiatal hernia. ? ? Incidental note is made of: Stable right-sided chest port ? ? Dictated by: Jesús Bonilla M.D. on 12/22/2020 at 11:38 CT scan - chest: Radiologist's Impression: ADDENDUMThis report includes an Addendum and supersedes previous reports for this exam. ? ? ? PROCEDURE:? CT CHEST ABD PEL W CON ? INDICATIONS:? Ovarian cancer right leg swelling ? TECHNIQUE:? After the administration of oral and intravenous contrast, axial sections acquired from the supraclavicular neck to the pubic symphysis.? Coronal and sagittal reformats were performed.? For radiation dose reduction, the following was used:? automated exposure control, adjustment of mA and/or kV according to patient size.? ? COMPARISON:? ? [facility], , US ARTERIAL DUPLEX LE RT, 12/22/2020, 14:26.? [facility], , US PERIPH VENOUS LOW EXTREM RT, 12/22/2020, 14:19.? [facility], CT, CT CHEST ABD PEL W CON, 11/03/2020, 12:03. ? FINDINGS:? Image quality:? Excellent.? ? CHEST: Lower Neck:? An apparent enlarged left supraclavicular lymph node is seen, as on series 2, image 7 measuring 3.6 x 1.9 cm.? This is clearly larger on the current study than on the prior. Thyroid:? The thyroid is small in size. Axillae: No enlarged lymph nodes. Chest Wall:? A right-sided chest port is seen, with the tip within the mid superior vena cava. ? Lungs and Airways: No consolidation or suspicious nodules.? Mild dependent right-sided atelectasis can be seen. Pleura: No pneumothorax.? There is a small to moderate right-sided pleural effusion.? ? Heart: Heart size is normal.? No pericardial effusion. Thoracic Vessels: The aorta and pulmonary arteries demonstrate normal size.? Mediastinum and Jordana:? Several enlarged mediastinal lymph nodes are seen, including a confluent mass of prevascular lymph nodes that measures 5.5 cm in greatest axial dimension, with a craniocaudal extent of 2.2 x 2.9 cm. Esophagus: No wall thickening.? There is a large hiatal hernia. ? ? ABDOMEN: Liver:? Numerous prominent hypervascular masses can be seen within the liver, which are clearly worse than on the prior examination.? For example, within the right posterior liver there was a 3.8 x 3.4 cm mass that now measures 5.9 x 5.5 cm. Gallbladder:? Numerous layering gallstones can be seen within the gallbladder.? ? Biliary ducts:? Unremarkable.? ? Pancreas:? Unremarkable.? ? Spleen:? Unremarkable.? ? Adrenal Glands:? Unremarkable.? ? Kidneys and Ureters:? There is severe right-sided hydronephrosis seen, which is overall slightly worse than the prior examination.? There is right-sided hydroureter, which continues to the right pelvic mass.? The left kidney is unremarkable, without hydronephrosis. ? Stomach and Bowel:? Stomach, small bowel loops, and colon are unremarkable.? Prominent stool can be seen within the rectal vault, which measures 7.4 cm transversely. Peritoneum:? A small amount of free fluid can be seen layering within the pelvis. ? Ventral Wall: ? No hernia.? Generalized anasarca can be seen. Abdominal Nodes:? Confluent retroperitoneal lymph nodes are seen, including a periaortic mass of lymph nodes that measures 6.1 x 4.2 cm in greatest axial dimension, as on series 2, image 79. Danica hepatis lymph nodes can be seen, with the largest group of lymph nodes measuring 6.3 x 4.9 cm in greatest axial dimension.? These lymph nodes are overall worse on the current study than on the prior. Vessels:? Aorta and inferior vena cava are normal in size.? Atherosclerotic calcification is noted.? ? PELVIS: Pelvic Organs:? This patient is status post hysterectomy. Bladder:? Unremarkable.? ? Miscellaneous:? There is an irregular soft tissue mass seen within the right anterior pelvis, which is attributed to metastatic mass that measures 8.6 x 6.6 cm in greatest axial dimension.? This is overall slightly more prominent on the current study than on the prior. ? Bones:? S-shaped scoliotic curvature is seen.? Age-appropriate bony degenerative changes are seen. ? ? IMPRESSION:? ? There is a small to moderate right-sided pleural effusion, with overlying atelectasis.? This pleural effusion is similar in size to the 11/03/2020 examination. ? Enlarged mediastinal lymph nodes are seen, which are similar to the prior. ? Clear interval worsening of metastatic disease to the liver, with numerous large hypervascular masses. ? Clear interval worsening of metastatic upper abdominal and retroperitoneal lymph nodes.? ? Cystic and solid mass seen involving the anterior right pelvis, which is overall slightly more prominent on the current study than on the prior. ? Severe right-sided hydronephrosis and hydroureter, with a site of obstruction apparently the right pelvic mass. ? There is generalized anasarca seen, which is worse than on the prior. ? There is prominent stool within the rectal vault.? Please correlate with co nstipation. ? Additional enlarged metastatic lymph node within the left supraclavicular region, which is worse than on the prior. ? ? ? Incidental note is made of: Small thyroid Right-sided chest port Large hiatal hernia Gallstones S shaped scoliotic curvature ? ? ? Dictated by: Jesús Bonilla M.D. on 12/22/2020 at 14:32 ? ? Approved by: Jesús Bonilla M.D. on 12/22/2020 at 14:43 ? ? ? ADDENDUM: ? On the accompanying right lower extremity venous study, there is extensive right lower extremity venous thrombosis seen.? On the current study, the right external iliac vein is expanded.? The right common iliac vein is mildly expanded with thrombus believed to be present to the level of the mid right common iliac vein. ? Dictated by: Jesús Bonilla M.D. on 12/22/2020 at 16:24 ? ? Approved by: Jesús Bonilla M.D. on 12/22/2020 at 16:25 ? Addendum Dictated By: Jesús Bonilla MD Addendum Signed By: Addendum Cosigned By: DD/ /06/1722 TD/TT: 12/22/2010/06/1722 PROCEDURE:? CT CHEST ABD PEL W CON ? INDICATIONS:? Ovarian cancer right leg swelling ? TECHNIQUE:? After the administration of oral and intravenous contrast, axial sections acquired from the supraclavicular neck to the pubic symphysis.? Coronal and sagittal reformats were performed.? For radiation dose reduction, the following was used:? automated exposure control, adjustment of mA and/or kV according to patient size.? ? COMPARISON:? ? [facility], , ARTERIAL DUPLEX LE RT, 12/22/2020, 14:26.? [facility], PERIPH VENOUS LOW EXTREM RT, 12/22/2020, 14:19.? [facility], CT, CT CHEST ABD PEL W CON, 11/03/2020, 12:03. ? FINDINGS:? Image quality:? Excellent.? ? CHEST: Lower Neck:? An apparent enlarged left supraclavicular lymph node is seen, as on series 2, image 7 measuring 3.6 x 1.9 cm.? This is clearly larger on the current study than on the prior. Thyroid:? The thyroid is small in size. Axillae: No enlarged lymph nodes. Chest Wall:? A right-sided chest port is seen, with the tip within the mid superior vena cava. ? Lungs and Airways: No consolidation or suspicious nodules.? Mild dependent right-sided atelectasis can be seen. Pleura: No pneumothorax.? There is a small to moderate right-sided pleural effusion.? ? Heart: Heart size is normal.? No pericardial effusion. Thoracic Vessels: The aorta and pulmonary arteries demonstrate normal size.? Mediastinum and Jordana:? Several enlarged mediastinal lymph nodes are seen, including a confluent mass of prevascular lymph nodes that measures 5.5 cm in greatest axial dimension, with a craniocaudal extent of 2.2 x 2.9 cm. Esophagus: No wall thickening.? There is a large hiatal hernia. ? ? ABDOMEN: Liver:? Numerous prominent hypervascular masses can be seen within the liver, which are clearly worse than on the prior examination.? For example, within the right posterior liver there was a 3.8 x 3.4 cm mass that now measures 5.9 x 5.5 cm. Gallbladder:? Numerous layering gallstones can be seen within the gallbladder.? ? Biliary ducts:? Unremarkable.? ? Pancreas:? Unremarkable.? ? Spleen:? Unremarkable.? ? Adrenal Glands:? Unremarkable.? ? Kidneys and Ureters:? There is severe right-sided hydronephrosis seen, which is overall slightly worse than the prior examination.? There is right-sided hydroureter, which continues to the right pelvic mass.? The left kidney is unremarkable, without hydronephrosis. ? Stomach and Bowel:? Stomach, small bowel loops, and colon are unremarkable.? Prominent stool can be seen within the rectal vault, which measures 7.4 cm transversely. Peritoneum:? A small amount of free fluid can be seen layering within the pelvis. ? Ventral Wall: ? No hernia.? Generalized anasarca can be seen. Abdominal Nodes:? Confluent retroperitoneal lymph nodes are seen, including a periaortic mass of lymph nodes that measures 6.1 x 4.2 cm in greatest axial dimension, as on series 2, image 79. Danica hepatis lymph nodes can be seen, with the largest group of lymph nodes measuring 6.3 x 4.9 cm in greatest axial dimension.? These lymph nodes are overall worse on the current study than on the prior. Vessels:? Aorta and inferior vena cava are normal in size.? Atherosclerotic calcification is noted.? ? PELVIS: Pelvic Organs:? This patient is status post hysterectomy. Bladder:? Unremarkable.? ? Miscellaneous:? There is an irregular soft tissue mass seen within the right anterior pelvis, which is attributed to metastatic mass that measures 8.6 x 6.6 cm in greatest axial dimension.? This is overall slightly more prominent on the current study than on the prior. ? Bones:? S-shaped scoliotic curvature is seen.? Age-appropriate bony degenerative changes are seen. ? ? IMPRESSION:? ? There is a small to moderate right-sided pleural effusion, with overlying atelectasis.? This pleural effusion is similar in size to the 11/03/2020 examination. ? Enlarged mediastinal lymph nodes are seen, which are similar to the prior. ? Clear interval worsening of metastatic disease to the liver, with numerous large hypervascular masses. ? Clear interval worsening of metastatic upper abdominal and retroperitoneal lymph nodes.? ? Cystic and solid mass seen involving the anterior right pelvis, which is overall slightly more prominent on the current study than on the prior. ? Severe right-sided hydronephrosis and hydroureter, with a site of obstruction apparently the right pelvic mass. ? There is generalized anasarca seen, which is worse than on the prior. ? There is prominent stool within the rectal vault.? Please correlate with constipation. ? Additional enlarged metastatic lymph node within the left supraclavicular bautista on, which is worse than on the prior. ? ? ? Incidental note is made of: Small thyroid Right-sided chest port Large hiatal hernia Gallstones S shaped scoliotic curvature ? ? ? Dictated by: Jesús Bonilla M.D. on 12/22/2020 at 14:32 ? ? US - DVT: Radiologist's Impression: PROCEDURE:? US PERIPH VENOUS LOW EXTREM RT ? INDICATIONS:? SWELLING ? TECHNIQUE:? Real-time imaging, as well as color and pulse Doppler interrogation, were perfo rmed of the lower extremity deep veins from the inguinal ligament to the popliteal fossa.? ? COMPARISON:? [facility], , US ARTERIAL DUPLEX LE RT, 12/22/2020, 14:26.? [facility], CT, CT CHEST ABD PEL W CON, 12/22/2020, 14:07. ? FINDINGS:? Extensive occlusive right lower extremity deep venous thrombosis can be seen involving the common femoral vein, greater saphenous vein, the profunda femoris vein, the femoral vein, and the popliteal vein. ? Extensive soft tissue edema can be seen from the right groin through the popliteal fossa. ? ? ? IMPRESSION:? Extensive occlusive right lower extremity deep venous thrombosis. ? ? Dictated by: Jesús Bonilla M.D. on 12/22/2020 at 14:13 ? ? US arterial: Radiologist's Impression: PROCEDURE:? US ARTERIAL DUPLEX LE RT ? INDICATIONS:? COLD LEG ? TECHNIQUE:? Color and pulse Doppler interrogation was performed of the right lower extremity arterial system, with image documentation.? ? COMPARISON:? [facility], US PERIP VENOUS LOW EXTREM RT, 12/22/2020, 14:19.? [facility], CT, CT CHEST ABD PEL W CON, 12/22/2020, 14:07. ? FINDINGS:? Common femoral artery:? 77 cm/sec, with triphasic flow.? Deep femoral artery:? 54 cm/sec, with triphasic flow.? Proximal superficial femoral artery:? 71 cm/sec, with stripe is flow.? Mid superficial femoral artery:? 51 cm/sec, with triphasic flow.? Distal superficial femoral artery:? 49 cm/sec, with biphasic flow.? Popliteal artery:? 58 cm/sec, with triphasic flow.? Posterior tibial artery:? The distal posterior tibial artery is not well seen.? The mid posterior tibial artery demonstrates a flow velocity of 33 cm/sec, with biphasic flow.? Anterior tibial artery/dorsalis pedis:? 22 cm/sec, with biphasic flow.? [place]renas-scale imaging description:? Atherosclerotic change can be seen, particularly involving the distal posterior tibial artery and the mid femoral artery ? ? IMPRESSION:? Flow is not well seen within the distal posterior tibial artery. ? Otherwise, no significant right lower extremity arterial stenosis. ? ? ? Dictated by: Jesús Bonilla M.D. on 12/22/2020 at 14:16 ? ? CT angio: Radiologist's Impression: PROCEDURE:? CT ANGIO LE RT ? INDICATIONS:? decreased pulse ? TECHNIQUE:? After the administration of intravenous contrast, 2.5 mm sections acquired from T12 to the feet, with optional delayed image acquisition from the knees to the feet.? 3-dimensional maximum intensity projection (MIP) coronal and sagittal reformats, and/or 3-dimensional volume rendering reformatting was then performed.? For radiation dose reduction, the following was used:? automated exposure control.? ? COMPARISON:? [facility], CT, CT CHEST ABD PEL W CON, 12/22/2020, 14:07.? [facility], US PERIPH VENOUS LOW EXTREM RT, 12/22/2020, 14:19.? [facility], US ARTERIAL DUPLEX LE RT, 12/22/2020, 14:26. ? FINDINGS:? Image quality:? Excellent.? ? Extravascular tissues:? As described on the prior CT of the chest abdomen pelvis, numerous non vascular abnormalities are seen.? Please see that report. ? There is generalized soft tissue swelling seen throughout the right lower extremity.? On prior imaging, extensive right lower extremity venous thrombosis can be seen.? This is not definitely seen on the current study. ? Abdominal aorta:? The visualized aorta demonstrates normal caliber and enhancement. ? Right lower extremity:? Atherosclerotic irregularity can be seen throughout.? Moderate calcification can be seen throughout.? The right common iliac, right internal iliac, and right external iliac arteries are within normal limits.? The common femoral artery and profunda femoris artery are unremarkable.? The right superficial femoral artery demonstrates normal caliber.? The right popliteal artery is within normal limits.? The proximal trifurcation vessels are normal.? There is poor flow seen within the distal aspects of the right trifurcation vessels. ? Left lower extremity:? Atherosclerotic calcification and irregularity can be seen throughout.? The left common iliac artery, left external iliac artery, and left internal iliac artery are within normal limits.? The common femoral artery and the profunda femoris artery are unremarkable.? The superficial femoral artery and the left popliteal artery are unremarkable.? There is poor flow seen within the left posterior tibial artery, with decreased flow seen within the distal aspect of the anterior tibial artery.? There is likely normal flow seen within the left peroneal artery. ? ? ? IMPRESSION:? No significant proximal arterial abnormality can be seen. ? There is no vessel runoff seen on the right side and one-vessel runoff seen on the left. ? The right lower extremity demonstrates prominent generalized swelling.? On prior imaging, extensive right lower extremity deep venous thrombosis was demonstrated. ? ? Dictated by: Jesús Bonilla M.D. on 12/22/2020 at 16:11 ? ? ECG Data Interpretation: Sinus rhythm rate 81 your normal 36 QRS [address] changes MDM Narrative Medical decision making narrative: Patient is 80-year-old who is found to have extensive DVT. 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 Arterial Doppler does show decreased flow. Venous ultrasound does show significant clot burden. CT angio done to determine if there truly is arterial involvement. Aware that kidney function is decreased however leg is quite cyanotic with a weak pulse. CT angio does not show any arterial involvement. Patient does have extensive cancer history and is on stage IV ovarian cancer with palliative chemo. She initially was started on heparin at arterial thrombus dose. Edwin Conklin, vascular Greg a day and patient's symptoms test results CT angio has been pushed. At this time even though significant clot burden with DVT anticoagulation only. No arterial involvement. If iliacs are involved there would be potential intervention. However at this time ultrasound does not comment on iliacs. Dr. Hardin in ED to see patient, he accepts patient for acute kidney injury and DVT. Patient is also significant rest for worsening acute kidney injury based on high IV contrast dosing. Unfortunately I did not see the addendum from Radiology done at 4:25 p.m.. It does state that there is significant iliac involvement as well. At this time patient is up and admitted on the floor. There is significant bed shortage I personally have been calling multiple hospitals all day very limited bed status. I have updated internal medicine about CT addendum. I have been on a conference call with Greg in regards to iliac involvement. Hospitalist and vascular rule be in contact to come up with the best plan for patient. Critical Care Time Critical Care Time Critical Care Time: Yes Total Critical Care Time: 45 Attestation: The high probability of a clinically significant, sudden or life threatening deterioration of the [cardiovascular] system(s) required my full and direct attention, intervention and personal management. The aggregate critical care time was [45] minutes. This time is in addition to time spent performing reported procedures but includes the following: [x] Data Review and interpretation [x] Patient assessment and monitoring of vital signs [x] Documentation [x] Medication orders and management Discharge Plan Departure Patient Disposition: Admitted As Inpatient Clinical Impression: Acute kidney injury, DVT of axillary vein, acute right Admit Date/Time: 12/22/20 18:15 Admit Provider: Alex Hardin
[2020-12-22 14:24] LABS: CKMB % Relative Index 1.4 % (1.5-5.0); Creatine Kinase MB 4.46 ng/mL (<2.37)
[2020-12-22] MEDS: CEFEPIME 2 GM in SODIUM CHLORIDE 0.9% 100 ML 200 ML IV (14:53)
[2020-12-22 15:20] LABS: COVID19 - ADMIT (NP swab/PCR) Negative (Negative)
--- NOTE | 2020-12-22 16:34 | DI.CT.S_ITS ---
PROCEDURE: CT ANGIO LE RT INDICATIONS: decreased pulse TECHNIQUE: After the administration of intravenous contrast, 2.5 mm sections acquired from T12 to the feet, with optional delayed image acquisition from the knees to the feet. 3-dimensional maximum intensity projection (MIP) coronal and sagittal reformats, and/or 3-dimensional volume rendering reformatting was then performed. For radiation dose reduction, the following was used: automated exposure control. COMPARISON: [facility], CT, CT CHEST ABD PEL W CON, 12/22/2020, 14:07. [facility], US, US PERIPH VENOUS LOW EXTREM RT, 12/22/2020, 14:19. [facility], , US ARTERIAL DUPLEX LE RT, 12/22/2020, 14:26. FINDINGS: Image quality: Excellent. Extravascular tissues: As described on the prior CT of the chest abdomen pelvis, numerous non vascular abnormalities are seen. Please see that report. There is generalized soft tissue swelling seen throughout the right lower extremity. On prior imaging, extensive right lower extremity venous thrombosis can be seen. This is not definitely seen on the current study. Abdominal aorta: The visualized aorta demonstrates normal caliber and enhancement. Right lower extremity: Atherosclerotic irregularity can be seen throughout. Moderate calcification can be seen throughout. The right common iliac, right internal iliac, and right external iliac arteries are within normal limits. The common femoral artery and profunda femoris artery are unremarkable. The right superficial femoral artery demonstrates normal caliber. The right popliteal artery is within normal limits. The proximal trifurcation vessels are normal. There is poor flow seen within the distal aspects of the right trifurcation vessels. Left lower extremity: Atherosclerotic calcification and irregularity can be seen throughout. The left common iliac artery, left external iliac artery, and left internal iliac artery are within normal limits. The common femoral artery and the profunda femoris artery are unremarkable. The superficial femoral artery and the left popliteal artery are unremarkable. There is poor flow seen within the left posterior tibial artery, with decreased flow seen within the distal aspect of the anterior tibial artery. There is likely normal flow seen within the left peroneal artery. IMPRESSION: No significant proximal arterial abnormality can be seen. There is no vessel runoff seen on the right side and one-vessel runoff seen on the left. The right lower extremity demonstrates prominent generalized swelling. On prior imaging, extensive right lower extremity deep venous thrombosis was demonstrated. Dictated by: Jesús Bonilla M.D. on 12/22/2020 at 16:11 Approved by: Jesús Bonilla M.D. on 12/22/2020 at 16:16
[2020-12-22] MEDS: HEPARIN 5,000 UNIT/ML VIAL 4000 UNIT IV (17:46)
[2020-12-22] MEDS: HEPARIN DRIP 25,000 UNIT/500 ML IV.SOLN 18 UNIT IV (17:50)
--- NOTE | 2020-12-22 19:03 | PC.NURSE ---
called pts daughter for an update that pt will be admitted to the acute care floor.
--- NOTE | 2020-12-22 22:28 | P.HP_ITS ---
History of Present Illness History of Present Illness Date Patient Seen: 12/22/20 Chief complaint: Right leg DVT Narrative: [address] [address] History & Physical Report Patient: Katelyn Maldonado MR#: [id number] : 1940 Katelyn Maldonado is an unfortunate 79-year-old female of Dr. 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 Patient is confused and unable to provide much of a history, they are trying to figure out what is wrong with me. She presented with a very cyanotic, tender and swollen left lower leg and doppler ultrasound identified an extensive left lower leg DVT. The CT of chest abdomen and pelvis, was addended after the patient was accepted to the medicine service and her clot is also found in the right external iliac vein is expanded.? The right common iliac vein is mildly expanded with thrombus believed to be present to the level of the mid right common iliac vein. Saturation 98% on room air, she weighs 62.3 kg with a BMI of 23.6. WBC is 9.0, RBC 3.16, hemoglobin 10.2, hematocrit 31.5, platelet count PT is 14.3, INR 1.3, sodium 129, potassium 5.0, chloride 100, serum bicarb 23, BUN 51, creatinine 1.56, with a GFR of 31.9 total bili is 1.6, AST 128, ALT 38, alk-phos 430, total CK is 317, CK-MB is 4.46, albumin is 3.2, and procalcitonin is 0.82, COVID-19 PCR is negative. Patient is currently under the care of Dr. Reagan Goetz, oncologist at [facility]. She is having tumor marker surveillance with low-dose carboplatin and may have completed 4 cycles noted on his visit note of 11/11/2020,. Patient History Medical History Acute respiratory failure with hypoxia (09/16/19) Anemia Anxiety Asthma COPD (chronic obstructive pulmonary disease) Headache Hypertension Hypothyroidism (acquired) Memory dysfunction Surgical History H/O hysterectomy with oophorectomy H/O thyroidectomy Family & Social History Family history unavailable: Yes Social History: household members none Prior Living Arrangements House Safety & Behavioral: Feels Safe in Current Yes Environment Been Physically Hurt or No Threatened By a Person Suicidal Ideation Description None Suicide Plan Description No Plan Tobacco & Substance use: Smoking Status Former smoker alcohol intake current alcohol intake frequency holiday/special occasion Substance Use Type does not use Meds Home Medications and Allergies Home Medications Medication Instructions Recorded Confirmed Type diltiazem HCl 60 mg tablet 60 mg PO DAILY 09/17/19 12/22/20 History levothyroxine 100 mcg tablet 100 mcg PO DAILY 09/17/19 12/22/20 History (Synthroid) levothyroxine 88 mcg tablet 88 mcg PO WEEKLY 09/17/19 12/22/20 History (Synthroid) montelukast 10 mg tablet 10 mg PO DAILY 09/17/19 10/22/20 History albuterol sulfate 2.5 mg INHALATION Q4H PRN 09/18/19 10/22/20 History alprazolam 0.5 mg tablet 0.5 mg PO TID PRN 08/12/20 10/22/20 History sennosides 8.6 mg-docusate sodium 1 tab-cap PO BEDTIME 08/12/20 12/22/20 History 50 mg tablet (Senokot-S) sertraline 25 mg tablet 25 mg PO DAILY 08/12/20 12/22/20 History albuterol sulfate 90 mcg/actuation 1 inh INHALATION QID PRN 08/19/20 10/22/20 History aerosol inhaler (Ventolin HFA) guaifenesin 600 mg tablet, 600 mg PO BID PRN 08/19/20 10/22/20 History extended release 12 hr (Mucus Relief ER) ondansetron 4 mg disintegrating 4 mg PO Q6H PRN #50 tab 09/03/20 12/22/20 Rx tablet hydrocodone 5 mg-acetaminophen 325 1 - 2 tab PO Q4-6H PRN #100 tab 10/01/20 10/22/20 Rx mg tablet pantoprazole 40 mg tablet,delayed 40 mg PO BID #60 tab 10/01/20 10/22/20 Rx release morphine 15 mg tablet,extended 30 mg PO Q8H #100 tab 10/22/20 12/22/20 Rx release hydrocodone 5 mg-acetaminophen 325 1 - 2 tab PO Q4H PRN #100 tab 12/02/20 12/22/20 Rx mg tablet Allergies Allergy/AdvReac Type Severity Reaction Status Date / Time adhesive tape Allergy Severe skin welt, Verified 12/22/20 12:26 bruising, and tears codeine [CODEINE] Allergy Severe Nausea Verified 12/22/20 12:26 Sulfa (Sulfonamide Allergy Severe Nausea Verified 12/22/20 12:26 Antibiotics) [SULFA (SULFONAMIDE ANTIBIOTICS)] amoxicillin [AMOXICILLIN] Allergy Intermediate GI UPSET Verified 12/22/20 12:26 Review of Systems Review of Systems ROS: Yes unobtainable due to mental status Exam Vital Signs (past 8 hours): - 12/22/20 14:30 12/22/20 14:45 12/22/20 15:00 Temperature Pulse Rate 84 86 85 Respiratory Rate 18 18 27 H Blood Pressure 98/68 99/71 94/66 Pulse Oximetry 99 99 99 12/22/20 15:30 12/22/20 16:00 12/22/20 16:30 Temperature Pulse Rate 84 81 80 Respiratory Rate 14 12 16 Blood Pressure Pulse Oximetry 97 96 97 12/22/20 17:00 12/22/20 17:30 12/22/20 17:58 Temperature Pulse Rate 81 84 86 Respiratory Rate 19 17 19 Blood Pressure 98/59 L Pulse Oximetry 98 100 97 12/22/20 18:00 12/22/20 18:15 12/22/20 18:30 Temperature Pulse Rate 91 H 87 92 H Respiratory Rate 20 23 19 Blood Pressure 97/56 L 96/53 L 89/51 L Pulse Oximetry 94 98 98 12/22/20 18:45 12/22/20 19:00 12/22/20 19:15 Temperature Pulse Rate 92 H 92 H 87 Respiratory Rate 22 20 17 Blood Pressure 100/55 L 98/69 92/60 Pulse Oximetry 99 99 97 12/22/20 19:30 12/22/20 20:00 Temperature 96.8 F L Pulse Rate 92 H 95 H Respiratory Rate 13 17 Blood Pressure 92/60 101/51 L Pulse Oximetry 97 98 Oxygen Delivery Method Room Air Narrative Exam Narrative: Gen: Alert, very ill appearing and cachectic 80 y.o. female, very pale HEENT: normocephalic, atraumatic, conjunctiva clear, sclera non-icteric, oral mucosa pink and moist Neck: supple, full ROM, no JVD, trachea is midline Resp: Lungs sounds diminished, non-labored breathing CV: RRR, no murmur or rubs Circulatory: pedal and posterior tibial artery pulses present by doppler Abd: soft, non-tender, normoactive BTs Skin: no lesions or rashes, dry and intact Neuro: Alert and oriented X 2-3 confused. Speech clear and coherent. Extremities: Right leg is cyanotic and cold from the knee distal, +2 non-pitting edema, positive Kamaljit?s sign Psyche: normal mood and affect. Objective Labs Result Diagrams: 12/22/20 13:30 12/22/20 13:30 Labs: Laboratory Results - last 24 hr 12/22/20 12/22/20 12/22/20 13:30 13:30 13:30 WBC 9.0 RBC 3.16 L Hgb 10.2 L Hct 31.5 L MCV 99.7 MCH 32.3 MCHC 32.4 RDW 17.5 H Plt Count 328 Neut % (Auto) 82.6 H Lymph % (Auto) 7.2 L [place] % (Auto) 9.9 Eos % (Auto) 0.1 L Baso % (Auto) 0.2 Neut # (Auto) 7400 H Lymph # (Auto) 600 L [place] # (Auto) 900 Eos # (Auto) 0 Baso # (Auto) 0 PT INR APTT Sodium 129 L Potassium 5.0 Chloride 100 Carbon Dioxide 23 BUN 51 H Creatinine 1.56 H Estimated GFR 31.9 L BUN/Creatinine Ratio 32.7 H Glucose 81 Lactate 1.9 Calcium 8.7 Total Bilirubin 1.6 H AST 128 H ALT 38 H Alkaline Phosphatase 430 H Total Creatine Kinase 317 H CK-MB (CK-2) 4.46 H CK-MB (CK-2) Rel Index 1.4 L Troponin I < 0.012 Total Protein 7.1 Albumin 3.2 L Globulin 3.9 Albumin/Globulin Ratio 0.8 L Lipase 221 Procalcitonin 0.82 H SARS-CoV-2 (PCR) 12/22/20 12/22/20 13:30 13:50 WBC RBC Hgb Hct MCV MCH MCHC RDW Plt Count Neut % (Auto) Lymph % (Auto) [place] % (Auto) Eos % (Auto) Baso % (Auto) Neut # (Auto) Lymph # (Auto) [place] # (Auto) Eos # (Auto) Baso # (Auto) PT 14.3 H INR 1.3 APTT 30 Sodium Potassium Chloride Carbon Dioxide BUN Creatinine Estimated GFR BUN/Creatinine Ratio Glucose Lactate Calcium Total Bilirubin AST ALT Alkaline Phosphatase Total Creatine Kinase CK-MB (CK-2) CK-MB (CK-2) Rel Index Troponin I Total Protein Albumin Globulin Albumin/Globulin Ratio Lipase Procalcitonin SARS-CoV-2 (PCR) Negative Assessment & Plan Assessment & Plan narrative: Katelyn Maldonado is admitted for treatment and management of an extensive right lower extremity DVT with concerns for arterial involvement,phlegmasia cerulea dolens 1. Extensive right lower extremity DVT * Heparin drip was started at 1605, currently APTT is elevated and nursing will follow current protocol including a repeat draw * After acceptance for admission to the floor I was contacted by the ED provider who found an addendum by Radiology stating that the patient's DVT also extended into the common middle iliac vein * Discussed the case both both vascular surgery at [facility] who would have agreed to take the patient if only involvement was Interventional Radiology after consultation with Dr. Mae, oncologist. * Due to concerns with arterial involvement after discussion with the hospitalist they declined to take the admission. * Patient is currently on a waiting list at [facility] and on a waiting list for discussion at [facility] * Nursing staff at my request contacted the [facility] for emergent transfer of this patient. * I have requested patient be placed into the ICU for closer monitoring 2. Stage 4 ovarian cancer, present on admission * Palliative chemotherapy under the care of Dr. Goetz * Stage IV high-grade serous carcinoma of the ovary with a positive left supraclavicular lymph node biopsy, retroperitoneal adenopathy and adnexal mass. * Care will be focused on symptomatic care, but officially is not comfort care measures only 3. Hypornatremia, acute, present on admission * Sodium was 129 on admission * Likely due to dehydration, start IVF NS at 150 ml/hour X 2 liters * Recheck in the am 4. Hypothyroidism, chronic * Continue home dose of levothyroxine 100 mcg po daily 5. Atrial fibrillation, unknown if chronic, likely long-term * Continue home dose of diltiazem 60 mg po daily VTE Prophylaxis: Wells risk score 10 [X] Patient is currently undergoing therapeutic anticoagulation on a heparin drip. [X]Patient is admitted to the inpatient service due to the severity of disease, risks of further disease progression and this stay is expected to exceed 2 midnights. FEN: IV fluids: [NS at 150 ml/hour X 2 liters], diet: general, labs: CBC, C/BMP, liver enzymes, Mag, PT/INR Consultants None Dispo: patient needs to be emergently transferred for thrombolysis of the DVT due to illiac vein involvement Code status: DNR/DNI as discussed with the patient who identifies daughterMeme as her surrogate and POA. [X] I confirmed that the patient's advanced care plan is present, code status is determined, or surrogate decision maker is listed on the patient's medical record. [X] I have utilized all available immediate resources to obtain, update, or review of the patient's current medications [X] The patient has current or prior documentation of the left ventricular ejection fraction (LEVF) less than 40% or moderate or severely depressed left ventricular systolic function. [X] No COVID-19 COVID-19 status: Negative Result date/Date tested (Pos, Neg/Pending): 12/22/20 Scores Wells' Criteria for PE Clinical signs and symptoms of DVT: Yes PE is #1 Dx or equally likely: Yes Heart rate > 100: No Immobilization at least 3 days or surg in previous 4 weeks: Yes History of PE or DVT: Yes Hemoptysis: No Malignancy w/Treatment within 6 months or palliative: Yes Wells' PE Score total: 10.0 Quality VTE Deep Vein Thrombosis/Pulmonary Embolism Present on Admission: Yes MIPS - Admit I confirm the patient?s Advance Care Plan is present, Code status is documented, Surrogate decision maker is in patient?s record [If Yes, STOP here]: Yes MIPS - DC The patient has current or prior documentation of left ventricular ejection fraction (LVEF) less than 40%, or moderate or severely depressed left ventricular systolic function.: No
[2020-12-22 23:23] LABS: PTT Partial Thromboplastin Tim > 400 SECONDS (26.4-36.2)
[2020-12-22] MEDS: SODIUM CHLORIDE 0.9% 1,000 ML 150 ML IV (23:55)
[2020-12-23] VITALS (9 sets, daily range): BP systolic 93–107; BP diastolic 56–70; PULSE 85–116; RESP 16–18; TEMP 36.2–36.9; O2SAT 95–100
[2020-12-23 00:04] LABS: PTT Partial Thromboplastin Tim > 400 SECONDS (26.4-36.2)
--- NOTE | 2020-12-23 01:03 | PC.NURSE ---
2018: admit from ED after danyell Johnson took report from Camila. arrived to floor via bed, accompanied by SIVA kern. patient is alert, confused. reports 10/10 pain. was transferred via slider board to bed w/ 3pa. unable to move her RLE, which is + for DVT and immobile. 3+ non-pitting edema. purple in color, warm to touch at knee and parts of lower [place]. hep gtt bag was in patient's lap when arrived to floor. this was placed on the IV pole in room. nurse who brought patient did not know the rate of hep gtt, satish, coordinator called ED and found out when it was hung and what the rate was. hep gtt protocol paper placed with chart. SIVA Russell was in room doing the admission when hep gtt was started by this RN at 18cc/hour via port-cath. (already accessed in ED) patient requested my walker, i want to walk to the bathroom. non-ambulatory while DVT is present, used bedpan w/ small success: soft BM and urine. periarea and anus are red and excoriated. barrier cream applied. HOB up for comfort. call light w/in reach. addendum: lab mayelin ptt a little earlier than scheduled midnight lab: critical lab results phoned to SIVA sánchez. ptt > 400. hep gtt stopped. PRODUCT SAFETY EXPERT notified. ordered to transfer patient to ICU. report to Cynthia. ivf infusing per order. ptt redrawn, remains critical at 400. ICU, PRODUCT SAFETY EXPERT, coordinators aware.
[2020-12-23] MEDS: HYDROCODONE/ACET 5/325 TABLET 1 TAB PO ×2 (02:41→14:03)
[2020-12-23 04:45] LABS: Add Manual Diff / Slide Review NO; Basophils Absolute Auto 0 /uL (0-100); Basophils Percent Auto 0.4 % (0-2); Eosinophils Absolute Auto 100 /uL (0-450); Eosinophils Percent Auto 0.7 % (2-4); Lymphocytes Absolute Auto 700 /uL (1100-4500); Lymphocytes Percent Auto 8.7 % (25-40); Mean Corpuscular HGB Conc 32.2 % (30-36); Mean Corpuscular Hemoglobin 32.1 PG (26-34); Mean Corpuscular Volume 99.7 fL (80-100); Monocytes Absolute Auto 800 /uL (0-900); Monocytes Percent Auto 9.9 % (3-14); Neutrophils Absolute Auto 6300 /uL (1500-7000); Neutrophils Percent Auto 80.3 % (50-75); Platelet Count 301 X10^3/uL (150-400); Red Blood Cell Count 3.11 X10^6/uL (4.0-5.2); Red Cell Distribution Width 17.9 % (11.6-14.8); White Blood Cell Count 7.8 X10^3/uL (4.5-11.0)
[2020-12-23 04:53] LABS: BUN Creatinine Ratio 28.5 (6-22); Blood Urea Nitrogen 51 mg/dL (7-17); Calcium 8.2 mg/dL (8.4-10.2); Carbon Dioxide 20 mmol/L (22-32); Chloride 102 mmol/L (98-107); Estimated Glomerular Filt Rate 27.2 mL/min (>60); Glucose 73 mg/dL (80-110); HEMOLYSIS < 15 (0-50); Potassium 5.1 mmol/L (3.4-5.1); Sodium 129 mmol/L (137-145)
[2020-12-23 05:01] LABS: PTT Partial Thromboplastin Tim 34 SECONDS (26.4-36.2)
[2020-12-23 05:05] LABS: INR 1.3 (0.9-1.3); Prothrombin Time 14.7 SECONDS (10.1-12.7)
[2020-12-23] MEDS: LEVOTHYROXINE 100 MCG TABLET PO (06:48)
--- NOTE | 2020-12-23 06:59 | PC.NURSE ---
Provider MIGDALIA Hurst notified at 0536 of patients 0430 PTT at 34. Verbal orders given to start heparin at 1200 units/hour with no bolus and okay given to stop NS @ 150 mL/hr instead of starting a new IV site. Orders read-back and verified. Patients heparin started at 1200 units/hour with the pump set to 24 mL/hr. No other orders at this time.
[2020-12-23 08:36] LABS: Alanine Aminotransferase 45 IU/L (<35); Albumin 2.9 g/dL (3.5-5.0); Albumin Globulin Ratio 0.7 (1.0-2.8); Alkaline Phosphatase 469 U/L (38-126); Aspartate Aminotransferase 188 IU/L (14-36); Bilirubin Conjugated 0.3 md/dL (0.0-0.3); Bilirubin Total 1.6 mg/dL (0.2-1.3); Bilirubin Unconjugated 0.3 mg/dL (0.0-1.1); Globulin 3.9 g/dL (1.7-4.1); HEMOLYSIS < 15 (0-50); Total Protein 6.8 g/dL (6.3-8.2)
--- NOTE | 2020-12-23 09:24 | CM.DANOTE ---
Addendum entered by Edna Carpenter R.N. 12/23/20 14:43: Hospitalist, Dr. Viera met with daughter, Meme Atkinson, prior to this DC deputy sheriff meeting with her. Hospice had been discussed, and daughter in agreement to discontinue palliative chemo. This supervisor case loading met with patient's daughter, Meme, to discuss options. She stated, she can't go home like this, but this supervisor case loading mentioned that she can't stay here at the hospital. Mentioned options such as private pay in skilled facilities, letting her know options. Encouraged her to call [facility] to increase caregiving hours, which she will do. Let her know to plan on DC for tomorrow, and mentioned she will most likely need BLS, and that there may be a cost. She seems to think that [facility] will pay for it, but did not validate this information. Did leave a message with [facility] as a courtesy for patient and daughter. Their phone number is: [phone]. Original Note: DCP: Case received, EMR reviewed and met with patient. She was sitting up in bed, difficulty comprehending and hearing. Asked her if this supervisor case loading could call her daughter, Meme, and patient stated, it would be ok. Was able to call patient's daughter, Meme, and obtain information regarding patient's baseline activity status and current living situation prior to hospitalization. DCP assessment completed with information currently available. Patient is a n 80 year old female who admitted yesterday afternoon to the care of the hospitalist team. PCP: Dr. Evans. Payer: confirmed: Medicare/ for [employer]. Patient came to the hospital via ambulance secondary to falls. Patient had some swelling to her right leg, and is diagnosed with DVT. Patient is poor historian. She is going through palliative chemo at [facility], and daughter has been taking. Patient has port a cath, and also notes pleural effusion. 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 Attempted to speak to patient, noted confusion. Asked her if she lived alone, did not give definate answer, mentioned, , [place]. She gave permission to contact her daughter, Meme. \ Contacted daughter, Meme. She stated that patient lives alone, she lives about [address] away. Daughter had been positive for COVID recently, and had not been able to see patient. She is now negative. Stated, her mom has [facility] 5 days a week, but isn't working out, she needs someone there all the time. Asked her about custodial plans, and she has looked into it, but is expensive. Skilled may potential be an option, but they will not cover any chemo meds. Patient uses a FWW, poor decision making. [facility] does assist patient with showers, and meals. Daughter is wanting to get more medical information on her current condition, before discussing discharge planning any further. Will meet with daughter later today, after she receives more medical information from hospitalist, and will discuss more on planning. Patient is not yet able to work with the therapy team secondary to DVT. P: DCP to continue to follow, and will discuss case at rounds. Will also speak to daughter later today. Edna Carpenter RN/Sweatband Separator
[2020-12-23] MEDS: dilTIAZem 30 MG TABLET 60 MG PO (10:33)
[2020-12-23] MEDS: SERTRALINE 50 MG TABLET 25 MG PO (10:34)
[2020-12-23 12:41] LABS: PTT Partial Thromboplastin Tim > 400 SECONDS (26.4-36.2)
--- NOTE | 2020-12-23 12:52 | PC.NURSE ---
Day shift: Dr Viera informed of Pt's Ptt of >400. Also talked with Tati in pharmacy. Ptt to be rechecked at 1400 today and that order placed. Heparin drip is stopped at this time.
[2020-12-23] MEDS: LORazepam 1 MG TABLET PO (14:03)
[2020-12-23] MEDS: SODIUM CHLORIDE 0.9% 1,000 ML 125 ML IV ×2 (15:44→23:53)
--- NOTE | 2020-12-23 15:48 | PM.PN.1 ---
Subjective Subjective Date Patient Seen: 12/23/20 Time Patient Seen: 08:00 Interval history: Today Ms. Maldonado is seen alone, and also later with daughter at bedside. When discussed with patient, she had no significant complaints, but did have controlled leg pain. She was clearly confused and unable to understand her complex medical situation. Later discussed with daughter at bedside and discussed the patient's current medical findings. Daughter does have signed goals of care, and has had discussions with her mom about the patient's preference not to have aggressive interventional treatment in the setting of a terminal condition. She knows her mother's condition well, and understands that her treatment to this point has been palliative, and there has been some expectation that she may pass away soon. Exam Vital Signs (past 8 hours): - 12/23/20 08:00 12/23/20 10:33 12/23/20 12:30 Temperature 97.8 F 97.9 F Pulse Rate 91 H 99 H 88 Respiratory Rate 16 16 Blood Pressure 103/67 94/59 L Pulse Oximetry 96 96 Oxygen Delivery Method Room Air Oxygen Flow Rate 0 Narrative Exam Narrative: GEN: Alert, ill appearing and cachectic, but no acute distress HEENT: normocephalic, atraumatic, conjunctiva clear, sclera non-icteric, oral mucosa pink and moist Neck: supple, full ROM, no JVD, trachea is midline Resp: Lungs sounds diminished, non-labored breathing CV: RRR, no murmur or rubs Circulatory: pedal and posterior tibial artery pulses present by doppler Extremities: Right leg is cyanotic and cold from the knee distal, +2 non-pitting edema Psyche: normal mood and affect. Objective Labs Result Diagrams: 12/23/20 04:30 12/23/20 04:30 Labs: Laboratory Results - last 24 hr 12/22/20 12/22/20 12/23/20 22:50 23:36 04:30 WBC RBC Hgb Hct MCV MCH MCHC RDW Plt Count Neut % (Auto) Lymph % (Auto) [place] % (Auto) Eos % (Auto) Baso % (Auto) Neut # (Auto) Lymph # (Auto) [place] # (Auto) Eos # (Auto) Baso # (Auto) PT INR APTT > 400 H* D > 400 H* 34 D Sodium Potassium Chloride Carbon Dioxide BUN Creatinine Estimated GFR BUN/Creatinine Ratio Glucose Calcium Total Bilirubin Conjugated Bilirubin Unconjugated Bilirubin AST ALT Alkaline Phosphatase Total Protein Albumin Globulin Albumin/Globulin Ratio 12/23/20 12/23/20 12/23/20 04:30 04:30 04:30 WBC 7.8 RBC 3.11 L Hgb 10.0 L Hct 31.0 L MCV 99.7 MCH 32.1 MCHC 32.2 RDW 17.9 H Plt Count 301 Neut % (Auto) 80.3 H Lymph % (Auto) 8.7 L [place] % (Auto) 9.9 Eos % (Auto) 0.7 L Baso % (Auto) 0.4 Neut # (Auto) 6300 Lymph # (Auto) 700 L [place] # (Auto) 800 Eos # (Auto) 100 Baso # (Auto) 0 PT 14.7 H INR 1.3 APTT Sodium 129 L Potassium 5.1 Chloride 102 Carbon Dioxide 20 L BUN 51 H Creatinine 1.79 H Estimated GFR 27.2 L BUN/Creatinine Ratio 28.5 H Glucose 73 L Calcium 8.2 L Total Bilirubin Conjugated Bilirubin Unconjugated Bilirubin AST ALT Alkaline Phosphatase Total Protein Albumin Globulin Albumin/Globulin Ratio 12/23/20 12/23/20 04:30 11:30 WBC RBC Hgb Hct MCV MCH MCHC RDW Plt Count Neut % (Auto) Lymph % (Auto) [place] % (Auto) Eos % (Auto) Baso % (Auto) Neut # (Auto) Lymph # (Auto) [place] # (Auto) Eos # (Auto) Baso # (Auto) PT INR APTT > 400 H* D Sodium Potassium Chloride Carbon Dioxide BUN Creatinine Estimated GFR BUN/Creatinine Ratio Glucose Calcium Total Bilirubin 1.6 H Conjugated Bilirubin 0.3 Unconjugated Bilirubin 0.3 AST 188 H ALT 45 H Alkaline Phosphatase 469 H Total Protein 6.8 Albumin 2.9 L Globulin 3.9 Albumin/Globulin Ratio 0.7 L PFSH Medical History Acute respiratory failure with hypoxia (09/16/19) Anemia Anxiety Asthma COPD (chronic obstructive pulmonary disease) Headache Hypertension Hypothyroidism (acquired) Memory dysfunction Surgical History H/O hysterectomy with oophorectomy H/O thyroidectomy Social History household members: none Smoking Status: Former smoker alcohol intake: current Assessment & Plan Assessment & Plan narrative: Katelyn Maldonado is admitted for treatment and management of an extensive right lower extremity DVT with concerns for arterial involvement,phlegmasia cerulea dolens 1. 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 -continue heparin gtt -patient's DVT also extended into the common middle iliac vein -initial provider iscussed the case both both vascular surgery at [facility] who have said that patient is high risk for complication and recommended against IR or thrombolysis, and recommend treatment with anticoagulation -discussed with patient, and her daughter at bedside, patient has signed forms expressing clearly that she has limited interventions wanted, especially in situation where her condidtion is terminal, her case is clearly terminal as her cancer continues to grow quite extensively as noted on CT despite palliative chemo, and this is the etiology of her VTE -for now continue anticoagulation, IV fluids and elevate leg 2. Acute kidney injury -possibly related to mass effecting causing hydronephrosis which is severe, though this has chronicity to it per patient's daughter -possibly worsened from dehydration -needed IV contrast for CT in ED -for now continue to monitor kidney function closely 2. Stage 4 ovarian cancer, metastatic, present on admission -palliative chemotherapy under the care of Dr. 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 -has clearly worsened on CT on admission with multiple enlarging masses 3. Hyponatremia, acute, present on admission -Sodium was 129 on admission -Likely due to dehydration, start IVF NS at 150 ml/hour X 2 liters -Recheck in the am, still stable 4. Hypothyroidism, chronic Continue home dose of levothyroxine 100 mcg po daily 5. Atrial fibrillation, unknown if chronic, likely long-term Continue home dose of diltiazem 60 mg po daily Code status: DNR/DNI as discussed with the patient who identifies daughterMeme as her surrogate and POA. Had long discussion about severity of illness and possible invasive interventions which have been recommended against by specialist providers. In addition, daughter has clear goals of care, and has spoken with her mother, about patient's desire for limited interventions in setting of terminal illness. Her cancer is worsening and she would be high risk for intervention, and daughter prefers to keep patient comfortable and try hospice. Time Spent With Patient Critical Care time: I spent a total of [] minutes of critical care time on this patient's care today; this time is exclusive of procedural time. Quality VTE Deep Vein Thrombosis/Pulmonary Embolism Present on Admission: Yes
[2020-12-23 15:52] LABS: PTT Partial Thromboplastin Tim > 400 SECONDS (26.4-36.2)
[2020-12-23 16:27] LABS: PTT Partial Thromboplastin Tim > 400 SECONDS (26.4-36.2)
[2020-12-23 18:21] LABS: PTT Partial Thromboplastin Tim 36 SECONDS (26.4-36.2)
--- NOTE | 2020-12-23 18:32 | PC.NURSE ---
DR. CASTAÑEDA INFORMED OF LAST PTT 36 KEEP HEPARIN OFF FOR NOW TO REACCESS
[2020-12-23] MEDS: APIXABAN 5 MG TABLET 10 MG PO (18:42)
[2020-12-23] MEDS: DOCUSATE 100 MG CAPSULE PO (20:40)
[2020-12-23] MEDS: SENNOSIDES 8.6 MG TABLET PO (20:41)
--- NOTE | 2020-12-23 20:55 | PC.NURSE ---
Addendum entered by Cristina Giles R.N. 12/23/20 22:42: 75cc out from [place]. provider aware. Original Note: pt confused, 98%RA. pedal pulse + w/doppler. RLE edematous. low urine output. pt not drinking enough fluids. IVF infusing.
[2020-12-23 23:08] LABS: PTT Partial Thromboplastin Tim 35 SECONDS (26.4-36.2)
[2020-12-24] VITALS (7 sets, daily range): BP systolic 88–107; BP diastolic 54–62; PULSE 81–90; RESP 12–18; TEMP 35.9–36.4; O2SAT 93–97
[2020-12-24 05:52] LABS: Add Manual Diff / Slide Review NO; Basophils Absolute Auto 0 /uL (0-100); Basophils Percent Auto 0.5 % (0-2); Eosinophils Absolute Auto 0 /uL (0-450); Eosinophils Percent Auto 0.6 % (2-4); Hematocrit 30.2 % (36-46); Hemoglobin 9.8 g/dL (12.0-16.0); Lymphocytes Absolute Auto 600 /uL (1100-4500); Lymphocytes Percent Auto 8.1 % (25-40); Mean Corpuscular HGB Conc 32.4 % (30-36); Mean Corpuscular Hemoglobin 32.5 PG (26-34); Mean Corpuscular Volume 100.2 fL (80-100); Monocytes Absolute Auto 1000 /uL (0-900); Monocytes Percent Auto 12.3 % (3-14); Neutrophils Absolute Auto 6200 /uL (1500-7000); Neutrophils Percent Auto 78.5 % (50-75); Platelet Count 323 X10^3/uL (150-400); Red Blood Cell Count 3.02 X10^6/uL (4.0-5.2); Red Cell Distribution Width 17.8 % (11.6-14.8); White Blood Cell Count 7.9 X10^3/uL (4.5-11.0)
[2020-12-24 05:55] LABS: INR 1.3 (0.9-1.3); Prothrombin Time 14.9 SECONDS (10.1-12.7)
[2020-12-24 06:01] LABS: BUN Creatinine Ratio 20.5 (6-22); Blood Urea Nitrogen 55 mg/dL (7-17); Calcium 7.9 mg/dL (8.4-10.2); Carbon Dioxide 20 mmol/L (22-32); Chloride 102 mmol/L (98-107); Estimated Glomerular Filt Rate 17.1 mL/min (>60); Glucose 68 mg/dL (80-110); HEMOLYSIS < 15 (0-50); Sodium 129 mmol/L (137-145)
[2020-12-24 06:03] LABS: Potassium 5.3 mmol/L (3.4-5.1)
[2020-12-24] MEDS: LEVOTHYROXINE 100 MCG TABLET PO (06:06)
[2020-12-24] MEDS: SODIUM CHLORIDE 0.9% 1,000 ML 125 ML IV (08:05)
[2020-12-24] MEDS: SERTRALINE 50 MG TABLET 25 MG PO (08:06)
[2020-12-24] MEDS: APIXABAN 5 MG TABLET 10 MG PO (08:10)
[2020-12-24] MEDS: HYDROMORPHONE 1 MG INJ IV ×2 (11:36→14:33)
[2020-12-24] MEDS: SCOPOLAMINE 1 PATCH TOP (14:33)
[2020-12-24] MEDS: POLYVINYL ALCOHOL DROPS 1 DROPS EYE-BOTH (14:40)
--- NOTE | 2020-12-24 14:54 | CM.DPC ---
DCP Cont: Per MD, had discussion bedside with pt and adult Dtr/DPOA Meme and pt not able to participate much in discussion but decision made to switch pt to Comfort Care and anticipates that pt will here and fairly imminent. EVE called [facility] and confirmed they received referral yesterday and will plan to attempt Info Visit via phone with Dtr and may have openings this week. EVE met bedside with pt and Dtr Meme and confirmed that Dtr does not want pt to d/c home with Hospice at this time and aware that Hospice may call today to complete Info Visit. EVE discussed that if pt stabilizes then she cannot remain in the hospital for days/weeks but options could be return home with Hospice and increased [facility] caregivers vs SNF under Comfort benefits for 5-7 days and then convert to private pay if pt has not . Dtr acknowledges understanding and feels that pt is showing signs of being imminent. RN starting increased pain medication and comfort now and feels pt imminent. EVE made referral to [facility] to review as back up plan if pt stabilizes and not imminent to go under Medicare Comfort benefits. [facility]. Plan: SW to follow closely tomorrow towards determining if pt imminent to in the hospital vs SNF for comfort measures. TIA [place]
--- NOTE | 2020-12-24 15:25 | P.PN_ITS ---
Subjective Subjective Date Patient Seen: 12/24/20 Time Patient Seen: 08:00 Interval history: Today she is weaker, more confused. She has leg pain and abdominal pain. She had notably worsening kidney function. Spoke with daughter who is in agreement to focus on the care of comfort for the patient. Exam Vital Signs (past 8 hours): - 12/24/20 07:45 12/24/20 08:00 12/24/20 08:24 Temperature 97 F L Pulse Rate 81 Respiratory Rate 18 Blood Pressure 91/55 L 91/55 L Pulse Oximetry 95 97 12/24/20 12:12 Temperature 96.6 F L Pulse Rate 87 Respiratory Rate 18 Blood Pressure 88/54 L Pulse Oximetry 96 Oxygen Delivery Method Room Air Oxygen Flow Rate 0 Narrative Exam Narrative: GEN: Alert, ill appearing, but no acute distress Neck: no JVD, trachea is midline Resp: Lungs sounds diminished, non-labored breathing CV: RRR, no murmur or rubs Circulatory: pedal and posterior tibial artery pulses present by doppler Extremities: Right leg is cyanotic and cold from the knee distal, +2 non-pitting edema Psyche: normal mood and affect. Objective Labs Result Diagrams: 12/24/20 05:22 12/24/20 05:22 Labs: Laboratory Results - last 24 hr 12/23/20 12/23/20 12/23/20 14:00 16:05 17:50 WBC RBC Hgb Hct MCV MCH MCHC RDW Plt Count Neut % (Auto) Lymph % (Auto) [place] % (Auto) Eos % (Auto) Baso % (Auto) Neut # (Auto) Lymph # (Auto) [place] # (Auto) Eos # (Auto) Baso # (Auto) PT INR APTT > 400 H* > 400 H* 36 D Sodium Potassium Chloride Carbon Dioxide BUN Creatinine Estimated GFR BUN/Creatinine Ratio Glucose Calcium 12/23/20 12/24/20 12/24/20 22:35 05:22 05:22 WBC 7.9 RBC 3.02 L Hgb 9.8 L Hct 30.2 L MCV 100.2 H MCH 32.5 MCHC 32.4 RDW 17.8 H Plt Count 323 Neut % (Auto) 78.5 H Lymph % (Auto) 8.1 L [place] % (Auto) 12.3 Eos % (Auto) 0.6 L Baso % (Auto) 0.5 Neut # (Auto) 6200 Lymph # (Auto) 600 L [place] # (Auto) 1000 H Eos # (Auto) 0 Baso # (Auto) 0 PT 14.9 H INR 1.3 APTT 35 Sodium Potassium Chloride Carbon Dioxide BUN Creatinine Estimated GFR BUN/Creatinine Ratio Glucose Calcium 12/24/20 05:22 WBC RBC Hgb Hct MCV MCH MCHC RDW Plt Count Neut % (Auto) Lymph % (Auto) [place] % (Auto) Eos % (Auto) Baso % (Auto) Neut # (Auto) Lymph # (Auto) [place] # (Auto) Eos # (Auto) Baso # (Auto) PT INR APTT Sodium 129 L Potassium 5.3 H Chloride 102 Carbon Dioxide 20 L BUN 55 H Creatinine 2.68 H Estimated GFR 17.1 L BUN/Creatinine Ratio 20.5 Glucose 68 L Calcium 7.9 L PFSH Medical History Acute respiratory failure with hypoxia (09/16/19) Anemia Anxiety Asthma COPD (chronic obstructive pulmonary disease) Headache Hypertension Hypothyroidism (acquired) Memory dysfunction Surgical History H/O hysterectomy with oophorectomy H/O thyroidectomy Social History household members: none Smoking Status: Former smoker alcohol intake: current Assessment & Plan Assessment & Plan narrative: Katelyn Maldonado is admitted for treatment and management of an extensive right lower extremity DVT with concerns for arterial involvement,phlegmasia cerulea dolens. Patient was made comfort care on 12/24 with worsening kidney function, metastatic cancer, and ischemia in leg. 1. 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 -patient's DVT also extended into the common middle iliac vein -initial provider iscussed the case both both vascular surgery at [facility] who have said that patient is high risk for complication and recommended against IR or thrombolysis, and recommend treatment with anticoagulation -discussed with patient, and her daughter at bedside, patient has signed forms expressing clearly that she has limited interventions wanted, especially in situation where her condidtion is terminal, her case is clearly terminal as her cancer continues to grow quite extensively as noted on CT despite palliative chemo, and this is the etiology of her VTE -focus on comfort care 2. Acute kidney injury -possibly related to mass effecting causing hydronephrosis which is severe -possibly worsened from dehydration, but did not improve with IV fluids -needed IV contrast for CT in ED 2. Stage 4 ovarian cancer, metastatic, present on admission -palliative chemotherapy under the care of Dr. 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 -has clearly worsened on CT on admission with multiple enlarging masses 3. Hyponatremia, acute, present on admission -Sodium was 129 on admission 4. Hypothyroidism, chronic Continue home dose of levothyroxine 100 mcg po daily 5. Atrial fibrillation, unknown if chronic, likely long-term Continue home dose of diltiazem 60 mg po daily Code status: DNR/DNI as discussed with the patient who identifies daughterMeme as her surrogate and POA. Had long discussion about severity of illness and given her metastatic cancer, her large dvt and ischemic leg, her worsening kidney function, decision was made to focus on comfort care. Time Spent With Patient Critical Care time: I spent a total of [] minutes of critical care time on this patient's care today; this time is exclusive of procedural time. Quality VTE Deep Vein Thrombosis/Pulmonary Embolism Present on Admission: Yes
[2020-12-24 22:46] LABS: PTT Partial Thromboplastin Tim 35 SECONDS (26.4-36.2)
[2020-12-25 02:50] VITALS: BP 109/56; PULSE 94; RESP 20; TEMP 36.3; O2SAT 95
[2020-12-25] MEDS: LEVOTHYROXINE 100 MCG TABLET PO (06:55)
[2020-12-25] MEDS: HYDROMORPHONE 1 MG INJ IV ×3 (09:49→18:08)
--- NOTE | 2020-12-25 13:52 | CM.DPNOTE ---
DCP Note Spoke w/[facility] this morning; she is unsure if they can accommodate patient at this time, will continue to review staffing options and get back to this TOOL ROOM LATHE OPERATOR Requested that FRANCISCO Lazcano, fax referral to [facility]. Received return msg from Monique [place]# [phone], will plan to f/u to review this referral Will follow closely and continue to attempt facility placement for end of life care, family stating they cannot care for patient at home at this time JW
--- NOTE | 2020-12-25 14:13 | CM.DPNOTE ---
Faxed referral packet to [facility] on 12/25/20 per Lois and received fax conf. Jaleesa Bergeron CM Asst.
--- NOTE | 2020-12-25 15:57 | P.PN_ITS ---
Subjective Subjective Date Patient Seen: 12/25/20 Time Patient Seen: 08:00 Interval history: Today she is more confused and weak. She has pain in her leg when palpated but otherwise is not able to verbalize how she is feeling. Exam Vital Signs (past 8 hours): Oxygen Delivery Method Room Air Oxygen Flow Rate 0 Narrative Exam Narrative: GEN: Alert, ill appearing, but no acute distress Neck: no JVD, trachea is midline Resp: Lungs sounds diminished, non-labored breathing CV: RRR, no murmur or rubs Circulatory: pedal and posterior tibial artery pulses present by doppler Extremities: Right leg is cyanotic and cold from the knee distal, +2 non-pitting edema Psyche: normal mood and affect. Objective Labs Result Diagrams: 12/24/20 05:22 12/24/20 05:22 Labs: Laboratory Results - last 24 hr 12/24/20 22:28 APTT 35 PFSH Medical History Acute respiratory failure with hypoxia (09/16/19) Anemia Anxiety Asthma COPD (chronic obstructive pulmonary disease) Headache Hypertension Hypothyroidism (acquired) Memory dysfunction Surgical History H/O hysterectomy with oophorectomy H/O thyroidectomy Social History household members: none Smoking Status: Former smoker alcohol intake: current Assessment & Plan Assessment & Plan narrative: Katelyn Maldonado is admitted for treatment and management of an extensive right lower extremity DVT with concerns for arterial involvement,phlegmasia cerulea dolens. Patient was made comfort care on 12/24 with worsening kidney function, metastatic cancer, and ischemia in leg. 1. 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 who have said that patient is high risk for complication and recommended against IR or thrombolysis, and recommend treatment with anticoagulation -discussed with patient, and her daughter at bedside, patient has signed forms expressing clearly that she has limited interventions wanted, especially in [facility] where her condidtion is terminal, her case is clearly terminal as her cancer continues to grow quite extensively as noted on CT despite palliative chemo, and this is the etiology of her VTE -focus on comfort care 2. Acute kidney injury -possibly related to mass effecting causing hydronephrosis which is severe -possibly worsened from dehydration, but did not improve with IV fluids -needed IV contrast for CT in ED 2. Stage 4 ovarian cancer, metastatic, present on admission -palliative chemotherapy under the care of Dr. 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 -has clearly worsened on CT on admission with multiple enlarging masses 3. Hyponatremia, acute, present on admission -Sodium was 129 on admission 4. Hypothyroidism, chronic Continue home dose of levothyroxine 100 mcg po daily 5. Atrial fibrillation, unknown if chronic, likely long-term Continue home dose of diltiazem 60 mg po daily Code status: DNR/DNI? as discussed with the patient who identifies daughterMeme as her surrogate and POA. Had long discussion about severity of illness and given her metastatic cancer, her large dvt and ischemic leg, her worsening kidney function, decision was made to focus on comfort care. Time Spent With Patient Critical Care time: I spent a total of [] minutes of critical care time on this patient's care today; this time is exclusive of procedural time. Quality VTE Deep Vein Thrombosis/Pulmonary Embolism Present on Admission: Yes
[2020-12-25 16:03] VITALS: BP 99/59; PULSE 92; RESP 12; TEMP 36.6; O2SAT 93
[2020-12-26] MEDS: LORazepam 2 MG/ML INJ 1 MG IV ×2 (01:13→22:26)
[2020-12-26 08:51] VITALS: BP 151/111; PULSE 118; RESP 18; TEMP 35.8; O2SAT 92
--- NOTE | 2020-12-26 11:41 | CM.DPC ---
DCP Cont: [facility] [place] [facility] still here. Spoke to patient's primary nurse, Eulalia, who indicated that she is not producing urine at this time, and is not taking anything in. This embedded case manager did contact Monique at [facility] in [place]. She indicated that they do not have a bed available as of yet, but will have the provider review. Called patient's daughter, Meme. Asked her about the original plan of taking her home and increasing 24 hour care with [facility]. She indicated, she has not been able to get an increase in hours, and doesn't feel comfortable taking her home. She is also concerned about her mother being in pain, and being able to manage this at home. She indicated that the hospitalist stated that she is not doing well, and can stay here, and we had a meeting about this a couple of days ago. P: Will discuss with hospitalist to see if he can meet with daughter today, and this embedded case manager. Have not gotten a report from the hospitalist as of yet regarding her medical situation as of today. [facility] is continuing to review. Edna Carpenter RN/Traffic Supervisor
--- NOTE | 2020-12-26 12:32 | PC.NURSE ---
Patient resting with eyes closed, breathing unlabored, RR 18. Did not wake patient to ask if she was in pain. Carpio patent, scant urine noted at this time. Patient received oral care earlier, denied wanting breakfast. Sips of water were provided. Will continue to monitor patient for s/s of pain. Door remains cracked open, call light in reach.
[2020-12-26] MEDS: HYDROMORPHONE 1 MG INJ IV (13:22)
--- NOTE | 2020-12-26 15:46 | PM.PN.1 ---
Subjective Subjective Date Patient Seen: 12/26/20 Time Patient Seen: 08:00 Interval history: Today she was confused. She could not coherently tell me how she felt. She was grimacing in pain with palpation of leg. Exam Vital Signs (past 8 hours): - 12/26/20 08:51 Temperature 96.5 F L Pulse Rate 118 H Respiratory Rate 18 Blood Pressure 151/111 H Pulse Oximetry 92 Oxygen Delivery Method Room Air Oxygen Flow Rate 0 Narrative Exam Narrative: ?GEN: ill appearing, but no acute distress Neck: no JVD, trachea is midline Resp: Lungs sounds diminished, non-labored breathing CV: RRR, no murmur or rubs Circulatory: pedal and posterior tibial artery pulses present by doppler Extremities: Right leg is cyanotic and cold from the knee distal, +2 non-pitting edema Psyche: normal mood and affect. Objective Labs Result Diagrams: 12/24/20 05:22 12/24/20 05:22 [facility] Medical History Acute respiratory failure with hypoxia (09/16/19) Anemia Anxiety Asthma COPD (chronic obstructive pulmonary disease) Headache Hypertension Hypothyroidism (acquired) Memory dysfunction Surgical History H/O hysterectomy with oophorectomy H/O thyroidectomy Social History household members: none Smoking Status: Former smoker alcohol intake: current Assessment & Plan Assessment & Plan narrative: Katelyn Maldonado is admitted for treatment and management of an extensive right lower extremity DVT with concerns for arterial involvement,phlegmasia cerulea dolens. Patient was made comfort care on 12/24 with worsening kidney function, metastatic cancer, and ischemia in leg. 1. 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 -patient's DVT also extended into the common middle iliac vein -initial provider iscussed the case both both vascular surgery at [facility] who have said that patient is high risk for complication and recommended against IR or thrombolysis, and recommend treatment with anticoagulation -discussed with patient, and her daughter at bedside, patient has signed forms expressing clearly that she has limited interventions wanted, especially in situation where her condidtion is terminal, her case is clearly terminal as her cancer continues to grow quite extensively as noted on CT despite palliative chemo, and this is the etiology of her VTE -focus on comfort care, recommend continuing frequent IV pain meds given her pain 2. Acute kidney injury -possibly related to mass effecting causing hydronephrosis which is severe -possibly worsened from dehydration, but did not improve with IV fluids -needed IV contrast for CT in ED 2. Stage 4 ovarian cancer, metastatic, present on admission -palliative chemotherapy under the care of Dr. 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 -has clearly worsened on CT on admission with multiple enlarging masses 3. Hyponatremia, acute, present on admission -Sodium was 129 on admission 4. Hypothyroidism, chronic Continue home dose of levothyroxine 100 mcg po daily 5. Atrial fibrillation, unknown if chronic, likely long-term Continue home dose of diltiazem 60 mg po daily Code status: DNR/DNI? as discussed with the patient who identifies daughterMeme as her surrogate and POA. Had long discussion about severity of illness and given her metastatic cancer, her large dvt and ischemic leg, her worsening kidney function, decision was made to focus on comfort care. She will benefit from pain control with IV pain medications given her severity of illness Time Spent With Patient Critical Care time: I spent a total of [] minutes of critical care time on this patient's care today; this time is exclusive of procedural time. Quality VTE Deep Vein Thrombosis/Pulmonary Embolism Present on Admission: Yes
--- NOTE | 2020-12-26 17:36 | PC.NURSE ---
Pt resting in bed, appears to be asleep, respirations shallow and unlabored. Pt appears comfortable. Mouth care provided and lip balm applied. Pt responds slightly (minimal eye opening and then closes immediately) to her name being called. Zero output in Carpio catheter. O2 sat 88% on RA. HR irregular and approx. 80-90bpm. Spoke with daughter Meme and gave Pt update.
[2020-12-26] MEDS: MORPHINE 2 MG/ML INJ IV (20:20)
[2020-12-26] MEDS: MORPHINE 4 MG/ML INJ IV ×2 (22:26→23:57)
[2020-12-27] MEDS: SCOPOLAMINE 1 PATCH TOP (00:06)
--- NOTE | 2020-12-27 02:21 | P.DN_ITS ---
Discharge Summary History of Illness Narrative: Add acute kidney injury, likely in the setting of dehydration, present on admission * Creatinine is 1.56, w/an eGFR of 31.9, last normal 3 days ago * Hydration w/IV NS at 150 ml/hour X 2 liters and recheck in the am * possibly in the setting of carboplatin administration Addendum Documented By: Angie Hurst 12/23/20 015 Addendum Signed By: <Electronically signed by Angie Hurst> 12/23/20151 ADDENDUM Discussed case w/Dr. Taran Flores, vascular surgeon. Due to her current staging, she did not meet criteria for thrombolysis plus the high risk of an intercranial bleed and encephalopathy. Recommended discharge on anticoagulant after consultation with her oncologist.? Addendum Documented By: Angie Hurst 12/23/20 004 Addendum Signed By: <Electronically signed by Angie Hurst> 12/23/2047 Katelyn Maldonado is an unfortunate 79-year-old female of Dr. 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 Patient is confused and unable to provide much of a history, they are trying to figure out what is wrong with me.? She presented with a very cyanotic, tender and swollen left lower leg and doppler ultrasound identified an extensive left lower leg DVT. The CT of chest abdomen and pelvis, was addended after the patient was accepted to the medicine service and her clot is also found in the right external iliac vein is expanded.? The right common iliac vein is mildly expanded with thrombus believed to be present to the level of the mid right common iliac vein. Saturation 98% on room air, she weighs 62.3 kg with a BMI of 23.6.? WBC is 9.0, RBC 3.16, hemoglobin 10.2, hematocrit 31.5, platelet count PT is 14.3, INR 1.3, sodium 129, potassium 5.0, chloride 100, serum bicarb 23, BUN 51, creatinine 1.56, with a GFR of 31.9 total bili is 1.6, AST 128, ALT 38, alk-phos 430, total CK is 317, CK-MB is 4.46, albumin is 3.2, and procalcitonin is 0.82, COVID-19 PCR is negative. Patient is currently under the care of Dr. Reagan Goetz, oncologist at [facility].? She is having tumor marker surveillance with low-dose carboplatin and may have completed 4 cycles noted on his visit note of 2020,. Hospital Course Date of Admission: 12/22/20 18:15 Primary care provider: Robert Evans MD [facility] Diagnosis: Patient at 2:10 a.m. on 12/27/2020. Hospital Course: Katelyn Maldonado is admitted for treatment and management of an extensive right lower extremity DVT with concerns for arterial involvement,phlegmasia cerulea dolens. Patient was made comfort care on 12/24 with worsening kidney function, metastatic cancer, and ischemia in leg. Objective Labs Result Diagrams: 12/24/20 05:22 12/24/20 05:22
--- NOTE | 2020-12-27 02:48 | PC.NURSE ---
Addendum entered by Sarah Doyle R.N. 12/27/20 04:11: Body released at 03:51 to home patient admitting representative. Provider aware. Original Note: Pt w/ increased secretions. Additional scopalamine patch placed. RT contacted. Minor suction of mouth performed d/t pt not opening jaw wide enough. Rt arrived, informed this RN that agonal gasps were taken and pt at approx 0208. RN notified at 0209. Provider and coordinator notified at 0210. Family (Meme Atkinson [phone]) notified at 0213. home name obtained and given to coordinator. Body cleansed and prepped according to protocol. Room cleaned. Tubes and lines removed.
== END 2020-12-27 03:55 | disposition expired | DRG 300 ==
LOC: ED 13:31 → AC 18:17
PROVIDERS: Internal Medicine; Nurse Practitioner Family; Admitting Provider Internal Medicine; Emergency Provider Emergency Medicine; PCP Internal Medicine; Referring Provider Emergency Medicine; Visit Provider Internal Medicine
DX: I82.411 Acute embolism and thrombosis of right femoral vein (principal); I74.5 Embolism and thrombosis of iliac artery; N17.9 Acute kidney failure, unspecified; E87.1 Hypo-osmolality and hyponatremia; C56.9 Malignant neoplasm of unspecified ovary; C78.00 Secondary malignant neoplasm of unspecified lung; C77.8 Secondary and unspecified malignant neoplasm of lymph nodes of multiple regions; N13.30 Unspecified hydronephrosis; I82.431 Acute embolism and thrombosis of right popliteal vein; E86.0 Dehydration; R41.0 Disorientation, unspecified; Z66 Do not resuscitate; I95.9 Hypotension, unspecified; E03.9 Hypothyroidism, unspecified; I48.91 Unspecified atrial fibrillation; Z51.5 Encounter for palliative care; Z20.822 Contact with and (suspected) exposure to COVID-19; Z87.891 Personal history of nicotine dependence
CPT/HCPCS: 36415; 71045; 71260; 73706; 74177; 80048; 80053; 80076; 82550; 82553; 83605; 83690; 84145; 84484; 85025; 85610; 85730; 87040; 87635; 93005; 93926; 93971; 94762; 96361; 96365; 96366; 96367; 96368; 96375; 99284; 99291; C9803; J0692; J1170; J1644; J2060; J2270; Q9967